=== PATIENT | male | born 1960 | race Caucasian/White ===

== ENCOUNTER 2019-11-18 09:09 | Inpatient (IN) ==
[2019-11-18 09:37] LABS: Basophils # (auto) 0.05 K/uL (0-0.2); Basophils % (auto) 0.5 %; Eosinophils # (auto) 0.18 K/uL (0-0.5); Eosinophils % (auto) 1.9 %; Hematocrit (blood only) 44.6 % (42-52); Hemoglobin 14.8 g/dL (14.0-18.0); Immature Granulocytes # (auto) 0.05 K/uL (0.00-0.02); Immature Granulocytes % (auto) 0.5 %; Lymphocytes # (auto) 2.53 K/uL (1.2-3.4); Lymphocytes % (auto) 26.3 %; Mean Corpuscular Hemoglobin 31.4 pg (25-34); Mean Corpuscular Hgb Conc 33.2 g/dL (32-36); Mean Corpuscular Volume 94.5 fL (80-100); Mean Platelet Volume 10.1 fL (7.4-10.4); Monocytes # (auto) 0.72 K/uL (0.11-0.59); Monocytes % (auto) 7.5 %; Neutrophils # (auto) 6.08 K/uL (1.4-6.5); Neutrophils % (auto) 63.3 %; Platelet Count 270 K/uL (130-400); RDW Standard Deviation 48.2 fL (36.4-46.3); Red Blood Count 4.72 M/uL (4.7-6.1); White Blood Count 9.61 K/uL (4.8-10.8)
[2019-11-18 09:43] LABS: Albumin Level 4.1 gm/dl (3.4-5.0); BUN Creatinine Ratio 15.6 (10-20); Blood Urea Nitrogen 14 mg/dl (7-18); Calcium 9.3 mg/dl (8.5-10.1); Carbon Dioxide 26 mmol/L (21-32); Chloride 106 mmol/L (98-107); Creatinine Clr Calc Pharmacy 93.6 ml/min; Est GFR (Non-African American) 94.9; Glucose 106 mg/dl (70-99); Magnesium 2.2 mg/dl (1.8-2.4); Sodium 136 mmol/L (136-145)
[2019-11-18] MEDS: SODIUM CHLORIDE 0.9% 1000ML 1,000 ML IV SCH ×2 (09:43→14:13)
[2019-11-18 09:48] LABS: Alanine Aminotransferase 19 U/L (12-78); Alkaline Phosphatase 90 U/L (45-117); Aspartate Aminotransferase 13 U/L (15-37); Bilirubin,Total 0.3 mg/dl (0.2-1); Globulin 4.3 gm/dl (2.5-4.0); Total Protein 8.4 gm/dl (6.4-8.2); Troponin I < 0.015 ng/ml (0-0.045)
[2019-11-18 09:51] LABS: Partial Thromboplastin Time 27.3 Seconds (21.0-31.0)
--- NOTE | 2019-11-18 10:01 | Emergency Department Note ---
Impression & Plan Cerebrovascular accident ED Provider Note NAME: SUHA JAVED AGE: 59 SEX: M ARRIVES VIA: Ambulance INFORMANT: [Patient] ED PROVIDER(S): Aiden Etienne MD CHIEF COMPLAINT: Left-sided weakness and numbness PLAN: Disposition: Admitted Condition: [Good] MEDICAL DECISION MAKING: Patient presented approximately 10 hours after the onset of dizziness and left- sided weakness/numbness. His physical examination was concerning for a central process. He underwent emergent laboratory testing, ECG, and CT imaging. Unfortunately due to the time of symptoms he was not a TPA candidate. CT imaging did reveal an acute CVA as noted below. Laboratory testing was unremarkable. The patient was given aspirin, Plavix and Lipitor after discussion with Poly mendez. He will need to be admitted for further work-up. I did discuss the case with the patient and his . I gave my usual and customary discussion regarding this issue. Triage Nursing notes reviewed and agree them. Vital Signs: reviewed and remarkable for hypertension Differential diagnosis: CVA/TIA, infection, dehydration, metabolic abnormality, hypo/hyperglycemia, electrolyte disturbance, anemia, hypoxia, cardiac sources, intracerebral event, toxicologic, neurologic, as well as other pathologies. ER treatment provided: Saline hydration Diagnostics interpreted by me: ECG: Rate: 67 Rhythm:Normal sinus [place]:Normal QRS:Normal ST segements:No elevation or depression Other:No PACs or PVCs Cardiac Monitoring: Cardiac monitoring ordered by me: The patient was placed on continuous cardiac monitoring and observed. It revealed a normal sinus rhythm at 71 beats per minute without ectopy or evidence of dysrhythmia. Laboratory studies: [See below] an unremarkable CBC and chemistry panel. 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 The patient also has a 2.9 x 1.4 cm acute CVA noted in the left cerebellar hemisphere Consultation(s): Consultation was made with Poly mendez, Dr. Rosenbaum. He recommended initiation of dual antiplatelet therapy with aspirin and Plavix load. He agreed with the IV fluids. He also recommended a statin such as Lipitor 40 mg and this was ordered. He recommended further thromboembolic work-up given the CTA find ings and that he would be available for additional consultation if the clinical scenario changes. Consultation was made with Dr. Duffy of the [facility] service. The patient was evaluated in the ER for further management. HPI: The patient is a 59 year old male who presents to the Emergency Room with complaints of left-sided numbness and weakness. This started last night around 11 PM and is slightly improved. The patient also notes the following associated symptoms, nausea and vomiting at the onset. The patient also noted dizziness. The dizziness has improved. Nausea and vomiting have resolved. The patient has taken no medication for relieving factors. Current pain is rated as 0/10. Pt denies LOC, headache, fevers, chills, diaphoresis, visual changes, neck pain, chest pain, breathing difficulties, nausea, vomiting, abdominal pain, back pain, melena, hematochezia, urinary symptoms, lymphadenopathy, rash, or other complaints. ROS: See above HPI for pertinent positives & negatives. A total of [10] systems reviewed and were otherwise negative. PAST MEDICAL HISTORY:Patient denies PAST SURGICAL HISTORY:Patient denies FAMILY HISTORY:Stroke and CAD SOCIAL HISTORY:Smoker HOME MEDICATIONS:Patient denies ALLERGIES:No known drug allergies] VITALS:[See Below] PHYSICAL EXAMINATION: GENERAL: Awake, alert, well appearing, no distress HENT: Normocephalic, atraumatic. TM's normal. Oropharynx unremarkable. EYES: PERRL. EOMI. Normal conjunctiva. Sclera non-icteric. NECK: Supple. Normal inspection. Non-tender. No nuchal rigidity. FROM. No bruit. RESPIRATORY: Breath sounds equal. No wheezes. No rhonchi. Normal respiratory effort. CARDIAC: Normal rate. Regular rhythm. No murmurs. No rubs. No JVD. GI: Soft, non distended. No tenderness to palpation. No rebound or guarding. No masses. RECTAL: Deferred. MUSCULOSKELETAL: Unremarkable. No edema. No discoloration. Gross motor strength symmetric. NEURO: Cranial nerves 2-12 grossly intact. Normal sensorium. No right-sided sensory or motor deficits noted. Left arm subjective numbness and left leg subjective numbness. Speech normal. Left sided pronator drift. Left leg drift as well. Patient unable to perform left heel to right cancino testing. Normal rapid alternating movements. No pathologic nystagmus noted. SKIN: No rash or jaundice noted. LYMPH: No adenopathy. ED COURSE: Procedures: [none] [Critical Care:] [None] Aiden Etienne MD Past Med/Surg History Social History Feels Safe at Home: Yes Smoking Status: Current every day smoker Allergies Allergies Allergy/AdvReac Type Severity Reaction Status Date / Time No Known Allergies Allergy Unverified 11/18/19 10:40 Home Meds Home Medications Medication Instructions Recorded Confirmed No Known Home Medications 11/18/19 11/18/19 Results & Data (ED) Vital Signs Vital Signs - 24 hr 11/18/19 08:56 11/18/19 09:25 11/18/19 09:30 Temperature 36.6 C Temperature Source Oral Pulse Rate 77 74 Pulse Rate from SpO2 Sensor 72 Pulse Rhythm Regular Pulse Strength Normal Respiratory Rate 18 16 Respiratory Effort / Characteristics Non-Labored Respiratory Depth Normal Respiratory Pattern Regular Blood Pressure 178/93 H 163/93 H Blood Pressure Mean 121 131 Blood Pressure Position Sitting Pulse Oximetry 96 96 97 Oxygen Delivery Method Room Air Room Air Sepsis Recent Fever Within 48 Hours No Sepsis Action Taken by Nursing No Action Required 11/18/19 09:33 11/18/19 10:00 11/18/19 10:30 Temperature Temperature Source Pulse Rate 83 64 71 Pulse Rate from SpO2 Sensor 73 73 Pulse Rhythm Pulse Strength Respiratory Rate 16 Respiratory Effort / Characteristics Respiratory Depth Respiratory Pattern Blood Pressure 160/88 H Blood Pressure Mean 110 Blood Pressure Position Pulse Oximetry 97 96 Oxygen Delivery Method Sepsis Recent Fever Within 48 Hours Sepsis Action Taken by Nursing 11/18/19 11:00 11/18/19 11:20 11/18/19 11:30 Temperature Temperature Source Pulse Rate 68 76 62 Pulse Rate from SpO2 Sensor Pulse Rhythm Pulse Strength Respiratory Rate Respiratory Effort / Characteristics Respiratory Depth Respiratory Pattern Blood Pressure 157/83 H 182/84 H Blood Pressure Mean 112 113 Blood Pressure Position Pulse Oximetry Oxygen Delivery Method Sepsis Recent Fever Within 48 Hours Sepsis Action Taken by Nursing 11/18/19 11:31 11/18/19 12:00 11/18/19 12:30 Temperature Temperature Source Pulse Rate 82 64 79 Pulse Rate from SpO2 Sensor Pulse Rhythm Pulse Strength Respiratory Rate Respiratory Effort / Characteristics Respiratory Depth Respiratory Pattern Blood Pressure 165/82 H Blood Pressure Mean 120 Blood Pressure Position Pulse Oximetry Oxygen Delivery Method Sepsis Recent Fever Within 48 Hours Sepsis Action Taken by Nursing 11/18/19 12:31 Temperature Temperature Source Pulse Rate 76 Pulse Rate from SpO2 Sensor Pulse Rhythm Pulse Strength Respiratory Rate 16 Respiratory Effort / Characteristics Respiratory Depth Respiratory Pattern Blood Pressure 187/90 H Blood Pressure Mean 119 Blood Pressure Position Pulse Oximetry Oxygen Delivery Method Sepsis Recent Fever Within 48 Hours Sepsis Action Taken by Nursing Laboratory Data Result diagrams: 11/18/19 09:15 11/18/19 09:15 Lab Results 11/18/19 11/18/19 11/18/19 Range/Units 09:15 09:15 09:15 WBC 9.61 (4.8-10.8) K/uL RBC 4.72 (4.7-6.1) M/uL Hgb 14.8 (14.0-18.0) g/dL Hct 44.6 (42-52) % MCV 94.5 (80-100) fL MCH 31.4 (25-34) pg MCHC 33.2 (32-36) g/dL RDW Std Deviation 48.2 H (36.4-46.3) fL RDW Coeff of Cipriano 14.0 (11.5-14.5) % Plt Count 270 (130-400) K/uL MPV 10.1 (7.4-10.4) fL Immature Gran % (Auto) 0.5 % Neut % (Auto) 63.3 % Lymph % (Auto) 26.3 % Pershing % (Auto) 7.5 % Eos % (Auto) 1.9 % Baso % (Auto) 0.5 % Immature Gran # (Auto) 0.05 H (0.00-0.02) K/uL Neut # (Auto) 6.08 (1.4-6.5) K/uL Lymph # (Auto) 2.53 (1.2-3.4) K/uL Pershing # (Auto) 0.72 H (0.11-0.59) K/uL Eos # (Auto) 0.18 (0-0.5) K/uL Baso # (Auto) 0.05 (0-0.2) K/uL PT 11.0 (9.0-12.0) Seconds INR 1.0 (0.9-1.1) APTT 27.3 (21.0-31.0) Seconds PTT Ratio 1.0 Sodium 136 (136-145) mmol/L Potassium 4.0 (3.5-5.1) mmol/L Chloride 106 (98-107) mmol/L Carbon Dioxide 26 (21-32) mmol/L Anion Gap 4.0 (3-11) BUN 14 (7-18) mg/dl Creatinine 0.89 (0.6-1.4) mg/dl Est Cr Clr Drug Dosing 93.6 ml/min Est GFR ( Amer) 110.0 Est GFR (Non-Af Amer) 94.9 BUN/Creatinine Ratio 15.6 (10-20) Glucose 106 H (70-99) mg/dl Calcium 9.3 (8.5-10.1) mg/dl Magnesium 2.2 (1.8-2.4) mg/dl Total Bilirubin 0.3 (0.2-1) mg/dl AST 13 L (15-37) U/L ALT 19 (12-78) U/L Alkaline Phosphatase 90 (45-117) U/L Troponin I < 0.015 (0-0.045) ng/ml Total Protein 8.4 H (6.4-8.2) gm/dl Albumin 4.1 (3.4-5.0) gm/dl Globulin 4.3 H (2.5-4.0) gm/dl Albumin/Globulin Ratio 1.0 (0.9-2) Blood Type Antibody Screen 11/18/19 Range/Units 09:41 WBC (4.8-10.8) K/uL RBC (4.7-6.1) M/uL Hgb (14.0-18.0) g/dL Hct (42-52) % MCV (80-100) fL MCH (25-34) pg MCHC (32-36) g/dL RDW Std Deviation (36.4-46.3) fL RDW Coeff of Cipriano (11.5-14.5) % Plt Count (130-400) K/uL MPV (7.4-10.4) fL Immature Gran % (Auto) % Neut % (Auto) % Lymph % (Auto) % Pershing % (Auto) % Eos % (Auto) % Baso % (Auto) % Immature Gran # (Auto) (0.00-0.02) K/uL Neut # (Auto) (1.4-6.5) K/uL Lymph # (Auto) (1.2-3.4) K/uL Pershing # (Auto) (0.11-0.59) K/uL Eos # (Auto) (0-0.5) K/uL Baso # (Auto) (0-0.2) K/uL PT (9.0-12.0) Seconds INR (0.9-1.1) APTT (21.0-31.0) Seconds PTT Ratio Sodium (136-145) mmol/L Potassium (3.5-5.1) mmol/L Chloride (98-107) mmol/L Carbon Dioxide (21-32) mmol/L Anion Gap (3-11) BUN (7-18) mg/dl Creatinine (0.6-1.4) mg/dl Est Cr Clr Drug Dosing ml/min Est GFR ( Amer) Est GFR (Non-Af Amer) BUN/Creatinine Ratio (10-20) Glucose (70-99) mg/dl Calcium (8.5-10.1) mg/dl Magnesium (1.8-2.4) mg/dl Total Bilirubin (0.2-1) mg/dl AST (15-37) U/L ALT (12-78) U/L Alkaline Phosphatase (45-117) U/L Troponin I (0-0.045) ng/ml Total Protein (6.4-8.2) gm/dl Albumin (3.4-5.0) gm/dl Globulin (2.5-4.0) gm/dl Albumin/Globulin Ratio (0.9-2) Blood Type A Positive Antibody Screen NEGATIVE Administered Medications Sodium Chloride (Nss 1000ml) 1,000 mls @ 50 mls/hr IV .Q20H [facility] Stop: 12/18/19 09:29 Last Admin: 11/18/19 09:43 Dose: 50 mls/hr Documented by: [id number] Ioversol (Optiray 320 125ml) 119 ml IV ONCE PRN PRN Reason: Interaction Checking Stop: 11/22/19 10:09 Last Admin: 11/18/19 10:11 Dose: 119 ml Documented by: [id number] Discontinued Medications Aspirin (Aspirin) 324 mg PO NOW STA Stop: 11/18/19 11:12 Last Admin: 11/18/19 11:19 Dose: 324 mg Documented by: [id number] Atorvastatin Calcium (Lipitor) 40 mg PO NOW STA Stop: 11/18/19 11:12 Last Admin: 11/18/19 11:43 Dose: 40 mg Documented by: [id number] Clopidogrel Bisulfate (Plavix) 300 mg PO NOW STA Stop: 11/18/19 11:12 Last Admin: 11/18/19 11:19 Dose: 300 mg Documented by: [id number] Discharge Plan Visit Data Chief Complaint: Stroke/CVA Symptoms ED Provider: Aiden Etienne Discharge Problem: Cerebrovascular accident Forms Stand Alone Forms: [employer] [facility] [employer] Prescriptions Prescriptions: No Action No Known Home Medications RF: 0
--- NOTE | 2019-11-18 10:05 | XRay Report ---
XR chest 1V portable CLINICAL HISTORY: Left-sided weakness. COMPARISON STUDY: No previous studies for comparison. FINDINGS: Lung volumes are normal. Equivocal hazy right lower lung opacity is present. There is no pn eumothorax or pleural effusion. Cardiac size is normal. Mediastinal contours are normal. There is no evidence for pulmonary edema. IMPRESSION: Equivocal hazy right lower lung opacity. Artifact is favored however a small focus of pn eumonia could appear similar. ACT 112: Negative or not required by law. Electronically signed by: Ellis Laura M.D. 11/18/2019 10:03 AM
[2019-11-18] MEDS ORDERED: OPTIRAY 320 125ml IV PRN (10:10)
--- NOTE | 2019-11-18 10:18 | Electrocardiogram Report ---
Test Reason : Blood Pressure : / mmHG Vent. Rate : 067 BPM Atrial Rate : 067 BPM P-R Int : 134 ms QRS Dur : 084 ms QT Int : 400 ms P-R-T Axes : 029 063 040 degrees QTc Int : 422 ms Normal sinus rhythm Normal ECG No previous ECGs available Confirmed by Bruce Rios ([id number]) on 11/18/2019 10:18:02 AM Referred By: REFERRED SELF Confirmed By:Bruce Rios
--- NOTE | 2019-11-18 10:38 | CT Scan Report ---
CT OF THE HEAD WITHOUT CONTRAST CLINICAL HISTORY: Stroke evaluation,left weakness COMPARISON STUDY: No previous studies for comparison. CT DOSE: 1153.98 mGy.cm TECHNIQUE: Helical axial images of the head were obtained without IV contrast. Automated exposure con trol was utilized for the study. A dose lowering technique was utilized adhering to the principles o f ALARA. FINDINGS: Note is made of a 2.9 x 1.4 cm hypodensity within the anterior superior aspect of the left cerebellar hemisphere. There is no hemorrhage. No significant mass effect is present. Ventricular sys tem is normal. The basilar cisterns are patent. There are no extra-axial collections. There are no si gnificant calvarial abnormalities. IMPRESSION: 2.9 x 1.4 cm hypodensity within the superior left cerebellar hemisphere consistent with an acute to subacute left superior cerebellar artery infarct. No hemorrhage. No significant mass effe ct. ACT 112: Negative or not required by law. Electronically signed by: Ellis Laura M.D. 11/18/2019 10:37 AM
--- NOTE | 2019-11-18 10:53 | CT Scan Report ---
CT ANGIOGRAPHY OF THE NECK WITH CONTRAST CLINICAL HISTORY: Stroke evaluation COMPARISON STUDY: No previous studies for comparison. Technique: CT angiography of the carotid and vertebral arteries was obtained using [employer] 320 IV and 3D reconstruction on an independent workstation. NASCET criteria was utilized. Automated exposure c ontrol was utilized for the study. A dose lowering technique was utilized adhering to the principles of ALARA. Findings: Lung apices are clear. There is no cervical lymphadenopathy. No cervical spine fracture is noted. No suspicious lesions are identified within visualized skeletal structures. There is moderate atherosclerotic plaque within the proximal right internal carotid artery without significant stenosis . There is plaque within the proximal left internal carotid artery without stenosis. There is no diss ection within the major vessels of the neck. The left vertebral artery is dominant and patent. There is occlusion of the proximal to mid right vertebral artery with reconstitution at the level of the mi d cervical spine. The right vertebral artery is diminutive. IMPRESSION: 1. 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 Diminutive rig ht vertebral artery. Dominant, patent left vertebral artery. 2. Moderate atherosclerotic plaque within the proximal bilateral internal carotid arteries without si gnificant stenosis. ACT 112: Negative or not required by law. Electronically signed by: Ellis Laura M.D. 11/18/2019 10:52 AM
--- NOTE | 2019-11-18 10:57 | CT Scan Report ---
CTA ANGIOGRAPHY OF THE HEAD CLINICAL HISTORY: Stroke evaluation COMPARISON STUDY: No previous studies for comparison. TECHNIQUE: Helical axial images of the head were obtained following uneventful intravenous administr ation of 119 cc of Optiray 320. Sagittal and coronal reconstructions were viewed as well as maximal i ntensity projections on an independent 3-D workstation. Automated exposure control was utilized for the study. A dose lowering technique was utilized adhering to the principles of ALARA. FINDINGS: The bilateral M1, M2, A1 and A2 segments are patent. There is mild plaque within the left s upraclinoid ICA without stenosis. There are large bilateral posterior communicating arteries. No intr acranial aneurysm is identified. Note is made of abrupt cut off of the proximal left superior cerebel lar artery. This accounts for the infarct shown on head CT. Otherwise, the posterior circulation is i ntact. The right vertebral artery is diminutive within its intracranial portion. The left vertebral a rtery is dominant. A 2.9 cm hypodensity within the superior left cerebellar hemisphere is noted. Ther e is no hemorrhage. IMPRESSION: Abrupt cut off of the proximal left superior cerebellar artery which accounts for the 2. 9 cm acute to subacute infarct within the superior left cerebellar hemisphere. ACT 112: Negative or not required by law. Electronically signed by: Ellis Laura M.D. 11/18/2019 10:56 AM
[2019-11-18] MEDS ORDERED: CLOPIDOGREL BISULFATE 300 MG TAB PO STA (11:11)
[2019-11-18] MEDS ORDERED: ASPIRIN CHEW 324 MG PO STA (11:11)
[2019-11-18] MEDS ORDERED: ATORVASTATIN 40 MG TAB PO STA (11:11)
--- NOTE | 2019-11-18 13:05 | History & Physical Report ---
Date of Service November 18, 2019 Assessment & Plan (1) Cerebrovascular accident: CT head, CTA head/neck reviewed Telestroke recs for dual antiplatelet tx x30 days Reconsult if recurrence and concern for emergent neurosurg workup CBC, PRP, trop WNL Neuro c/s pending Vasc surg c/s pending Lipids, A1c pending Per CM, pt was admitted in 2016 for some sort of TIA vs seizure work up. He was to f/u with [facility] neuro as outpt but did not do so. (2) Tobacco use disorder: 1ppd, would like to quit Start on nicotine patch and monitor (3) DVT prophylaxis: SCDs History of Present Illness Primary Care Provider: Aiden Santiago MD 59 y/o M c/o dizziness, vomiting, L UE/LE numbness. Pt states that he had a usual day for himself yesterday. 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 He states he woke up around 11p and had sudden onset of room spinning and vomiting. He noted that his L UE/LE were both numb. He couldn't walk due to the numbness. He states he was up all night feeling unwell. His last emesis was around 4a. He states that the dizziness and numbness persisted, so he came to the ED. He has never had similar sx. Denies any confusion or changes in vision, speech. Pt denies fever, SOB, chest pain, abd pain, c/d, LE pain or swelling. Per ED physician, pt was evaluated by [facility] telestroke. It was determined that pt would need a vascular work-up and should be started on dual antiplatelet therapy. It pt were to have repeat events, he may need transferred to [facility] for neurosurg c/s. Allergies Allergy/AdvReac Type Severity Reaction Status Date / Time No Known Allergies Allergy Unverified 11/18/19 10:40 Home Medications Home Medications Medication Instructions Recorded Confirmed Type No Known Home Medications 11/18/19 11/18/19 History Past Med/Surg History Family History (Updated 11/18/19 @ 12:59 by Emilee Duffy DO) Mother Myocardial infarction Father Myocardial infarction Denies family history of Stroke Social History (Updated 11/18/19 @ 12:59 by Emilee Duffy DO) Feels Safe at Home: Yes Smoking Status: Current every day smoker packs per day: 1 ; Hx Alcohol Use: Yes (beer on the weekends) Hx Substance Use: Yes (smokes MJ most days, but not every day) substance use type: marijuana Last Used Substance Other:: MJ yesterday Review of Systems Review of Systems: Pertinent positives and negatives reviewed in HPI--all others negative Physical Exam Constitutional: WD/WN, vitals as above Eyes: normal visual caputo by confrontation and + anicteric sclerae Neck: normal visual inspection and trachea midline Respiratory: normal respiratory effort, lungs clear to auscultation Cardiovascular: Rate/Rhythm: regular rate and regular rhythm Gastrointestinal (Abdomen): Inspection/Auscultation: abdomen not distended Percussion/Palpation: abdomen soft; abdomen nontender Musculoskeletal: Head/Neck/Chest: normocephalic and head atraumatic negative for edema, peripheral pulses intact Skin: no rashes, warm and dry Neurologic: CN's II-XI intact bilaterally and awake; not confused Speech / Cognition: normal speech 4/5 ophthalmology technician strength on the L, 5/5 on R L LE with 4/5 strength against resistance to hip flexion, 5/5 on R b/l 5/5 strength against resistance to dorsi/plantar flexion/extension Psychiatric: A+Ox3, euthymic affect Results & Data Results & Data ([facility]) Vital Signs (Past 12 Hours) Vital Signs Temp Pulse Resp BP Pulse Ox 11/18/19 12:31 76 16 187/90 H 11/18/19 12:30 79 11/18/19 12:00 64 165/82 H 11/18/19 11:31 82 11/18/19 11:30 62 182/84 H 11/18/19 11:20 76 157/83 H 11/18/19 11:00 68 11/18/19 10:30 71 96 11/18/19 10:00 64 16 160/88 H 11/18/19 09:33 83 97 11/18/19 09:30 74 16 163/93 H 97 11/18/19 09:25 96 11/18/19 08:56 36.6 C 77 18 178/93 H 96 Diagnostic Findings CXR: likely atelectasis CT head: L cerebellar lesion, acute vs subacute L superior cerebellar artery infarct CTA head: L superior cerebellar artery occlusion CTA neck: R vertebral artery occlusion ECG Rhythm: normal sinus Code Status & VTE Plan Code Status Full code VTE Prophylaxis Plan VTE Prophylaxis will be ordered: Yes PG Care Time/CCT Total # of Minutes Spent Total Time Spent with Patient: Total time spent is greater than 50% in co ordination of care (as documented) at patient's floor/unit and/or counseling patient: Coding Level of Care Code 54977 Initial Inpt Care Lvl 3 Diagnoses Cerebrovascular accident I63.9 Tobacco use disorder F17.200 DVT prophylaxis Z29.9
[2019-11-18] MEDS ORDERED: ACETAMINOPHEN 325 MG TAB PO PRN (13:43)
[2019-11-18] MEDS ORDERED: PHARMACIST DISCHARGE MED REC CONSULT PRN (13:43)
[2019-11-18] MEDS ORDERED: ONDANSETRON INJ 2 MG/ML 2 ML VIAL IV PRN (13:43)
[2019-11-18] MEDS ORDERED: MAGNESIUM HYDROXIDE SUSP 30 ML UDC PO PRN (13:43)
--- NOTE | 2019-11-18 14:08 | Neurology Consultation ---
Date of Consultation November 18, 2019 Assessment & Plan (1) Cerebellar stroke: Liam Thayer is a 59 yo man w/ PMH of tobacco abuse who p/t [facility] with acute onset of left sided numbness, dizziness and nausea/vomiting. Symptom localization: L SCA Stroke mechanism: large vessel occlusion, cannot rule out vessel to vessel from right vertebral artery occlusion Stroke WorkUp: - CT head: hypodensity in the left cerebellum, no hemorrhage - CTA head/neck: left SCA occlusion, dominant left vertebral artery with small caliber right vertebral artery and R V3 occlusion with re-constitution, moderate intra- and extracranial atherosclerosis noted, no other high grade stenosis or aneurysm noted - MRI brain: pending - TTE: pending, will consider ÁNGEL - Telemetry: pending - A1c: pending - FLP: pending - Troponin, TSH: negative, pending Stroke Management: - Acute treatment: ASA/plavix load - Continuous cardiac monitoring, will consider 30 day event monitor as outpatient if telemetry here unrevealing - Vitals, Neurochecks, NIHSS per unit routine - BP parameters: SBP CAP 220, hold home anti-hypertensives for permissive HTN, IV Labetalol/Hydralazine PRN - Obtain MRI brain to evaluate stroke burden - Complete ischemic stroke workup with TTE without bubble, A1c, fasting lipid panel, TSH - Consult speech, PT, OT for supportive management - Will chief counsel concerning stroke education, smoking cessation, healthy diet, physical activity, weight loss - Follow up with PCP for assistance with outpatient goals (BP <135/85, LDL <70, A1c <7) - Follow up in neurology clinic in 6-8 weeks - if worsening mental status/becomes obtunded, stat CTH without contrast to r/o hemorrhagic conversion or acute hydrocephalus Secondary Stroke Prevention: - Antiplatelet: ASA 81mg po daily/plavix 75mg po daily (aspirin 300 VA if no PO access) - Anticoagulation: Not indicated at this time - Statin: Atorvastatin 80mg daily pending LDL HTN: - BP parameters, as above - Hold home BP meds for now in favor of permissive HTN - EKG NSR, troponin negative FEN/GI: - Diet: NPO until cleared by Speech evaluation - Monitor lytes and replete PRN Glucose Control: - Sliding scale insulin and accuchecks per primary team to avoid hyperglycemia Thank you for this interesting consult. Plan of care was discussed with primary team. Please call with any questions. (2) Tobacco use disorder: History of Present Illness Attending Physician: Emilee Duffy DO History of Present Illness Liam Thayer is a 59 yo man w/ PMH of tobacco abuse who p/t [facility] with acute onset of left sided numbness, dizziness and nausea/vomiting. 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 In the ED, BP 178/93, HR 77, RR 18, satting 96% on room air. Labs notable for for WBC 9.6, Hb 14.8, Plts 270, Cr 0.89, glucose 106, INR 1.0, CMP unremarkable, troponin negative. Independent review of CTH shows a hypodensity in the left cerebellum, no hemorrhage. CTA head and neck shows left SCA occlusion, dominant left vertebral artery with small caliber right vertebral artery and R V3 occlusion with re-constitution, moderate intra- and extracranial atherosclerosis noted, no other high grade stenosis or aneurysm noted. CXR show RLL opacity (artifact vs RLL PNA). He was given aspirin/plavix load and admitted for stroke workup. On examination, reports that his numbness has improved some, still feeling dizzy/"sick". Denies any recent illness, trauma or change in medications. Does not take a baby aspirin or any other medication at home. SH: 1ppd x 40 years, 12 pack beer per week, daily marijuana, denies other illicits. Patient Features: Admission NIHSS: 2 Admission Modified Angelina Scale: 0 Time patient last seen well: 8-9pm on 11/17/19 Wake up stroke: Yes Intubation status: Not intubated Stroke Risk Factors: Hypertension: N Hyperlipidemia: N Atrial Fib: N Tobacco: Y Diabetes: N Taking NOAC or warfarin: N Allergies Allergy/AdvReac Type Severity Reaction Status Date / Time No Known Allergies Allergy Unverified 11/18/19 10:40 Home Medications Home Medications Medication Instructions Recorded Confirmed Type No Known Home Medications 11/18/19 11/18/19 History Patient History Family History Mother Myocardial infarction Father Myocardial infarction Denies family history of Stroke Social History Preferred Language: Albanian Communication Ability: Effective 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 Beliefs That Will Affect Care: None Current Living Situation: Spouse Other Information That Helps Us Care for You: No Feels Safe at Home: Yes Safety Concerns: Feels Safe At This Time Smoking Status: Heavy tobacco smoker Tobacco Type: cigarettes ; packs per day: 1 ; Do You Dip or Chew Tobacco: No ; Second Hand Exposure: Yes ; Tobacco Cessation Education Requested by Patient: No Hx Alcohol Use: Yes Alcohol type: beer Hx Substance Use: Yes substance use type: marijuana Substance Use Type Other:: MJ Last Used Substance: Days (ago) Last Used Substance Other:: MJ yesterday Review of Systems Review of Systems: 14 point review of systems completed and negative except as in HPI. Physical Exam Physical Exam: General Exam: GEN: NAD, sitting down in examination bed. HEENT: No conjunctival injection, no rhinorrhea, moist mucus membranes. CV: RRR on monitor, no significant edema. PULM: Nonlabored respirations on room air. Neuro Exam: MS: Awake and Alert. Oriented to person, place, and date. Speech fluent and appropriate without paraphasic errors. Mild dysarthria. Language intact including naming, comprehension, repetition. Cognition and memory grossly intact. Attention intact. No neglect. CN: Visual dumas full. No extinction to double simultaneous stimuli. Unable to visualize fundi on fundoscopic exam. PERRLA OU. EOMI without clear nystagmus. Facial sensation intact to LT. Facial muscles full and symmetric. Hearing intact to finger rub bilaterally. Uvula midline with symmetric palatal elevation. Shoulder shrug normal. Tongue midline. MOTOR: Normal bulk and tone. No pronator drift. All extremities antigravity without drift. REFLEXES: 1+ at biceps, brachioradialis, 1+ patella, and absent Achilles bilaterally. Flexor plantar responses bilaterally. SENSORY: Intact to LT/vibration/temperature throughout, no extinction to double simultaneous stimuli. COORDINATION: + dysmetria on [id number] in the LUE. Normal [place] bilaterally. GAIT: Deferred due to physical status. NIH STROKE SCALE 1A. Level of Consciousness (0-3) = 0 1B. LOC Questions (0-2) = 0 1C. LOC Commands (0-2) = 0 2. Best Horizontal Gaze (0-2) = 0 3. Visual Dumas (0-3) = 0 4. Facial Palsy (0-3) = 0 5. Motor Arm Right (0-4) = 0 Left (0-4) = 0 6. Motor Leg Right (0-4) = 0 Left (0-4) = 0 7. Limb Ataxia (0-2) = 1 8. Sensory (0-2) = 0 9. Best Language (0-3) = 0 10. Dysarthria (0-2) = 1 11. Extinction and Inattention (0-2) = 0 NIHSS TOTAL = 2 Results & Data Vital Signs (Past 12 Hours) Vital Signs Temp Pulse Resp BP Pulse Ox 11/18/19 13:00 84 20 148/76 H 96 11/18/19 12:32 83 11/18/19 12:31 76 16 187/90 H 11/18/19 12:30 79 11/18/19 12:00 64 165/82 H 11/18/19 11:31 82 11/18/19 11:30 62 182/84 H 11/18/19 11:20 76 157/83 H 11/18/19 11:00 68 11/18/19 10:30 71 96 11/18/19 10:00 64 16 160/88 H 11/18/19 09:33 83 97 11/18/19 09:30 74 16 163/93 H 97 11/18/19 09:25 96 11/18/19 08:56 36.6 C 77 18 178/93 H 96 PG Care Time/CCT Total # of Minutes Spent Total Time Spent with Patient: Total time spent is greater than 50% in coordination of care (as documented) at patient's floor/unit and/or counseling patient: Coding Level of Care Code 66349 Inpt Consult Level 5 Diagnoses Cerebellar stroke I63.9 Tobacco use disorder F17.200
[2019-11-18] MEDS: NICOTINE 21 MG/24 HR TDSY TD SCH (14:10)
[2019-11-18 20:30] LABS: Appearance Urine Clear (Clear); Bilirubin Urine Negative (Negative); Blood Urine Negative (Negative); Color Urine Yellow; Glucose Urine UA Negative (Negative); Ketones Urine Negative (Negative); Leukocyte Esterase Urine Negative (Negative); Nitrite Urine Negative (Negative); Protein Urine Negative (Negative); Specific Gravity Urine 1.025 (1.000-1.030); Urobilinogen Urine Negative (Negative)
[2019-11-18] MEDS ORDERED: GADOBUTROL 30ML VIAL IV PRN (23:43)
[2019-11-19 06:05] LABS: Basophils # (auto) 0.03 K/uL (0-0.2); Basophils % (auto) 0.3 %; Eosinophils # (auto) 0.34 K/uL (0-0.5); Eosinophils % (auto) 3.7 %; Hematocrit (blood only) 43.4 % (42-52); Hemoglobin 14.3 g/dL (14.0-18.0); Immature Granulocytes # (auto) 0.04 K/uL (0.00-0.02); Immature Granulocytes % (auto) 0.4 %; Lymphocytes # (auto) 2.77 K/uL (1.2-3.4); Lymphocytes % (auto) 30.5 %; Mean Corpuscular Hemoglobin 31.5 pg (25-34); Mean Corpuscular Hgb Conc 32.9 g/dL (32-36); Mean Corpuscular Volume 95.6 fL (80-100); Mean Platelet Volume 10.1 fL (7.4-10.4); Monocytes # (auto) 0.67 K/uL (0.11-0.59); Monocytes % (auto) 7.4 %; Neutrophils # (auto) 5.23 K/uL (1.4-6.5); Neutrophils % (auto) 57.7 %; Platelet Count 277 K/uL (130-400); RDW Coefficient of Variation 13.9 % (11.5-14.5); RDW Standard Deviation 48.6 fL (36.4-46.3); Red Blood Count 4.54 M/uL (4.7-6.1); White Blood Count 9.08 K/uL (4.8-10.8)
--- NOTE | 2019-11-19 06:33 | Magnetic Resonance Report ---
MRI OF THE BRAIN WITHOUT AND WITH IV CONTRAST CLINICAL HISTORY: stroke symptoms LEFT ARM AND LEG NUMBNESS. Dizziness COMPARISON STUDY: CT scan of the head dated 11/18/2019 TECHNIQUE: MRI of the brain was performed from the vertex to the skull base utilizing various T1 and T2 weighted sequences. Following the IV administration of 8.3 mL of Gadavist contrast, additional enh anced images were obtained. FINDINGS: Sagittal T1, axial diffusion, proton density and T2 weighted axial, coronal FLAIR, and pre and post a xial T1-weighted images were acquired. These were supplemented with post gadolinium coronal T1 weight ed images. No intra or extra-axial mass lesions are visualized. There is a focus of restricted water diffusion involving the left anterior superior cerebellum measur ing approximately 2.5 cm in diameter. This is indicative of an acute to subacute infarct. There is no evidence of ventricular dilatation. Proton density T2-weighted and FLAIR images reveal a few punctate foci of increased T2 signal within the white matter, likely on a small vessel basis. In addition there is increased T2 and FLAIR signal in the distribution of the patient's left cerebellar subacute infarct. There are no abnormal flow voids. There is no evidence of pathologic enhancement. Foci of increased T2 signal within the right mastoid are likely inflammatory IMPRESSION: 1. Acute to subacute infarct involving the left anterior superior cerebellum. ACT 112: Negative or not required by law. Electronically signed by: Davonte Harper M.D. 11/19/2019 6:32 AM
[2019-11-19 06:37] LABS: BUN Creatinine Ratio 12.1 (10-20); Creatinine Clr Calc Pharmacy 94.5 ml/min; Est GFR (Non-African American) 95.8; Potassium 3.8 mmol/L (3.5-5.1)
[2019-11-19 07:17] LABS: Estimated Average Glucose 120 mg/dl; Hemoglobin A1C 5.8 % (4.5-5.6)
[2019-11-19] MEDS: NICOTINE 21 MG/24 HR TDSY TD SCH (08:43)
[2019-11-19] MEDS ORDERED: ASPIRIN 81 MG ECTAB PO SCH (09:00)
[2019-11-19] MEDS ORDERED: CLOPIDOGREL BISULFATE 75 MG TAB PO SCH (09:00)
[2019-11-19] MEDS ORDERED: ATORVASTATIN 40 MG TAB PO SCH (09:00)
--- NOTE | 2019-11-19 09:45 | Consultation ---
Date of Consultation November 19, 2019 Assessment & Plan (1) Cerebrovascular accident: This is a 59-year-old male who had a cerebral infarct. On reviewing his studies he does have a left vertebral occlusion in the midportion. There is reconstitution distally. The artery itself is on the smaller side. He does have mild plaque in his carotid arteries but no significant narrowing requiring any intervention. At this point I would treat him conservatively with aspirin and Plavix. We will see him in the office in 6 months for routine follow-up. Thank you very much for letting us participate in the care of this patient. History of Present Illness Reason for Consultation: Cerebellar infarct Attending Physician: Emilee Duffy, History of Present Illness This is a 59-year-old male who was in his usual state of good health. He was actually chopping wood on the day prior to admission. 11:00 that night he dev eloped nausea vomiting and numbness of his left leg which progressed to numbness of his left arm. He had difficulty walking and realized he had weakness in his left arm left leg. He was admitted hospital at that time. CAT scan shows a left cerebellar infarct. He claims that his left arm and left leg today are back to normal. He denied any previous incidences like this in the past. He does smoke a pack a day. 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 Beliefs That Will Affect Care: None Current Living Situation: Spouse Feels Safe at Home: Yes Smoking Status: Heavy tobacco smoker Tobacco Type: cigarettes ; packs per day: 1 ; Second Hand Exposure: No ; Hx Alcohol Use: Yes Alcohol type: beer Hx Substance Use: Yes substance use type: marijuana Substance Use Type Other:: MJ Last Used Substance: Days (ago) Last Used Substance Other:: MJ yesterday Review of Systems Review of Systems: All systems reviewed & are unremarkable except as noted in HPI & below Physical Exam Constitutional: well developed and well nourished; no acute distress and not ill appearing Respiratory: normal respiratory effort; no respiratory distress Cardiovascular: RRR, no murmur, no edema Rate/Rhythm: regular rate and regular rhythm Vessels: femoral pulses present, posterior tibial pulses present, dorsalis pedis pulses present and radial pulses present Extremities: normal capillary refill Gastrointestinal (Abdomen): normal bowel sounds, soft, nontender, no hepatosplenomegaly Musculoskeletal: Extremities: extremities normal to inspection Neurologic: CN's II-XI intact bilaterally, normal sensation to monofilament, moves all extremities and + focal motor deficit (4/5 strength of left arm left l eg.) Speech / Cognition: normal speech Psychiatric: Orientation: alert and oriented x 3 Results & Data Vital Signs (Past 12 Hours) Vital Signs Temp Pulse Pulse Resp BP Pulse Ox 11/19/19 08:00 90 11/19/19 07:00 36.9 C 77 20 138/80 96 11/19/19 04:20 36.7 C 66 18 141/61 H 97 11/18/19 23:59 36.5 C 70 19 166/77 H 96
[2019-11-19] MEDS: SODIUM CHLORIDE 0.9% 1000ML 1,000 ML IV SCH (10:21)
--- NOTE | 2019-11-19 14:06 | XCELERA ---
[id number] \\[id number]
[2019-11-19] MEDS ORDERED: STROKE PATIENT DISCHARGE STA (15:23)
--- NOTE | 2019-11-19 15:32 | Discharge Summary ---
Date of Service November 19, 2019 Admission HPI Per Admitting Provider 59 y/o M c/o dizziness, vomiting, L UE/LE numbness. Pt states that he had a usual day for himself yesterday. 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 He states he woke up around 11p and had sudden onset of room spinning and vomiting. He noted that his L UE/LE were both numb. He couldn't walk due to the numbness. He states he was up all night feeling unwell. His last emesis was around 4a. He states that the dizziness and numbness persisted, so he came to the ED. He has never had similar sx. Denies any confusion or changes in vision, speech. Pt denies fever, SOB, chest pain, abd pain, c/d, LE pain or swelling. Per ED physician, pt was evaluated by [facility] telestroke. It was determined that pt would need a vascular work-up and should be started on dual antiplatelet therapy. It pt were to have repeat events, he may need transferred to [facility] for neurosurg c/s. Principal Diagnosis Pt continues to feel improved. He has had no recurrence of dizziness or emesis. His L UE/LE numbness has continued to improve. Tolerating PO without issue. Pt denies fever, SOB, chest pain, abd pain, n/v/c/d, LE pain or swelling. He has been ambulating without issue per himself and nursing. He feels that the nicotine patches are helping. He has no smoking cravings since admission and would like to continue use. Discharge Exam Constitutional WD/WN, vitals as above Eyes normal visual caputo by confrontation and + anicteric sclerae Neck normal visual inspection and trachea midline Respiratory normal respiratory effort, lungs clear to auscultation Cardiovascular Rate/Rhythm: regular rate and regular rhythm Gastrointestinal (Abdomen) Inspection/Auscultation: abdomen not distended Percussion/Palpation: abdomen soft; abdomen nontender Musculoskeletal Head/Neck/Chest: normocephalic and head atraumatic Skin no rashes, warm and dry Neurologic CN's II-XI intact bilaterally and awake; not confused Speech / Cognition: normal speech slightly decreased fagot maker strength in the L compared with the R Slight decreased strength against resistance in L hip flexion, dorsi/plantar flexion 5/5 Psychiatric A+Ox3, euthymic affect Discharge Data Allergies Allergy/AdvReac Type Severity Reaction Status Date / Time No Known Allergies Allergy Unknown Verified 11/19/19 08:05 Consultations 11/18/19 12:13 ED Decision to Admit Stat 11/18/19 13:43 Consult Case Management - Discharge Planning Routine Consult Case Management - Discharge Planning Routine Consult Neurology Routine Consult Vascular Surgery Routine Ordered Studies 11/18/19 09:27 CT angio head w con Stat CT angio neck with con Stat CT head/brain wo con Stat 11/18/19 19:42 MRI Brain [MR brain wo/w con] Routine Hospital Course (1) Cerebrovascular accident: CT head noted for L cerebellar lesion, acute vs subacute--same noted on MRI CTA head/neck with L superior cerebellar artery occlusion, R vertebral artery occlusion Telestroke recs for aspirin/plavix tx x30 days Reconsult if recurrence and concern for emergent neurosurg workup CBC, PRP, trop WNL Neuro f/u in 6-8 weeks to determine ongoing aspirin/plavix use Vasc surg felt current management is adequate with f/u in 6 months Lipids with LDL 142, HDL 34--d/c on statin A1c 5.8 ECHO neg for acute issues Per CM, pt was admitted in 2016 for some sort of TIA vs seizure work up. He was to f/u with [employer] [facility] [employer] [facility] [employer] as outpt but did not do so. (2) Tobacco use disorder: 1ppd, would like to quit Start on nicotine patch and monitor Given rx for patches, advised to f/u with PCP for other options if not working, gave info for [place] QUIT LINE. also smokes, advised she also work towards cessation (2) Tobacco use disorder: Total Time Total Time Spent Total Time Spent (In Minutes): >30 Total Time Includes: Examination of the Patient, Discharge Planning, Medication Reconciliation, Communication With Other Providers and Other Discharge Plan Discharge Items Patient Disposition: Home - Self-Care Reason For Visit: CVA Discharge Diagnosis: Stroke Activity: Resume your previous activity Non-emergency contact: Primary Care Provider Call non-emergency contact if: you have any medication questions and your symptoms worsen Follow-up/Referrals: Karina Dee CRNP [Primary Care Provider] - 11/26/19 10:30 am (Please, follow up at [facility] Office with Karina BURRIS on TuesdayNovember 25 at 10:30 am. *Karina BURRIS will be your new primary care provider. A nurse will call you with the appointment information. Due to the need for social distancing, this will be a TELEPHONIC VISIT, call the office at [phone].) Charisma Quick MD [Physician] - 01/09/20 9:45 am (Please, follow up at [facility] Neurology Office with Dr. Charisma Quick on TuesdayJanuary 08 at 10:00 am (arrive 9:45 am). *The office is located at [facility] in [place]. If you need to change this appointment, call the office at [phone].) Josef Gayle MD [Physician] - (Call [phone] to schedule a follow up appointment in 6 months) Diet: Heart Healthy Addtl Attending Provider Instructions: If you have any recurrence of symptoms--dizziness, vomiting, or worsening of your left arm and leg numbness, you should return to the ED as soon as possible. If you feel that you are having issues quitting smoking with just the nicotine patch, you should call your new primary care doctor to discuss use of alternatives. Another great resource is the [place] QUIT LINE. 5-203-SEDK-NOW. They can provide resources like free nicotine patches and 24/ counseling services about smoking cessation. It is free to all [place] residents. Pending Studies at Discharge: No Stand-Alone Forms: My [facility], Smoking Cessation Medications and DC Order Prescriptions: New atorvastatin 40 mg Tablet 40 mg PO QAM Qty: 30 RF: 1 clopidogrel 75 mg Tablet 75 mg PO QAM Qty: 30 RF: 1 aspirin 81 mg Tablet,Delayed Release (Dr/Ec) 81 mg PO QAM Qty: 30 RF: 1 nicotine [Nicoderm CQ] 21 mg/24 hr Patch 24 Hour 21 mg transdermal QAM Qty: 30 RF: 1 No Action No Known Home Medications RF: 0 No Known Home Medications RF: 0 Discharge Orders: Discharge Order (Routine); Ordered 11/19/19 Ordered By: Emilee Del Angel/Other Patient Handouts: Stroke Heart Disease, Smoking Quit Plan, Smoking Get Help for Quitting Admission Data Admit Date/Time: 11/18/19 13:00 Attending Provider: Emilee Duffy Admit Provider: Emilee Duffy Primary Care Provider: Karina Dee Other Providers: Emilee Duffy ; Maximiliano Bean ; Josef Gayle Other Interventions: Discharge Summary Assessment (RN) Last Done: 11/19/19 15:20 DC Date/Time DO NOT enter until pt leaves facility: 11/19/19 16:28 Coding Level of Care Code D/C Day Management >30 mins Diagnoses Cerebrovascular accident I63.9 Tobacco use disorder F17.200
--- NOTE | 2019-11-21 10:59 | Pharmacy Report ---
Pharmacist Post D/C Phone Note - Phone Note: Date of phone call: November 21, 2019. Individual with whom pharmacist spoke to: LIAM HAILE The following questions were reviewed during the phone call with responses listed below each: Can you tell me the medications that you are currently taking as well as when and how you take each medication? -See Table Below When have you missed any doses of your medications? - No What side effects are you having from your medications, specifically, the new medications you were started on? - Feels a little heart burn - recommended taking medications with food What questions do you have about your medications? - none What problems are you having obtaining your medications? - none When is your next appointment with your primary care doctor? - Phone appt of 11/25 Additional comments: - Spoke with Liam Haile via phone this morning. Pt was very pleasant and stated he is doing "much better than Tuesday!" He is taking all of his medications as directed and tolerating them well other than feeling a little heart burn. I recommended that he takes the aspirin with food and cautioned him NOT to take prilosec since this interacts with plavix. Pt will f/u with PCP on 11/25. As per the Pharmacist Discharge Counseling for Stroke Patients Protocol, this phone call has been completed within 72 hours of discharge. Thank you for allowing us to be involved in the care of this patient. - Home Medications: Home Medications Medication Instructions Recorded Confirmed No Known Home Medications 02/08/19 02/08/19 No Known Home Medications 11/18/19 11/18/19 New Rx's Medication Instructions Recorded aspirin 81 mg PO QAM #30 tab 11/19/19 atorvastatin 40 mg PO QAM #30 tab 11/19/19 clopidogrel 75 mg PO QAM #30 tab 11/19/19 nicotine [Nicoderm CQ] 21 mg TRANSDERMAL QAM #30 ea 11/19/19
== END 2019-11-19 16:28 | disposition home or self-care (01) | DRG 66 ==
LOC: ED 09:09 → MERGE 13:00 → 2S 13:00

== ENCOUNTER 2020-03-22 12:06 | Observation (INO) ==
[2020-03-22] MEDS ORDERED: OPTIRAY 320 125ml IV ONE (12:11)
--- NOTE | 2020-03-22 12:19 | CT Scan Report ---
CT head/brain wo con CT DOSE: HISTORY: Stroke evaluation TECHNIQUE: Multiaxial CT images of the head were performed without the use of intravenous contrast. A dose lowering technique was utilized adhering to the principles of ALARA. Comparison: None. Findings: The paranasal sinuses and mastoid air cells are clear. The calvarium and skull base are int act. The ventricles and sulci are within normal limits. There is no mass, hematoma, midline shift, or acute infarct. Impression: No acute intracranial abnormality. ACT 112: Negative or not required by law. The above report was generated using voice recognition software. It may contain grammatical, syntax or spelling errors. Electronically signed by: Jeremiah Holguin M.D. 03/22/2020 12:18 PM
--- NOTE | 2020-03-22 12:25 | CT Scan Report ---
CT angio neck with con HISTORY: Mental status change Stroke evaluation TECHNIQUE: Multiaxial CT angiography of the neck was performed IV contrast: 120 cc All measurements were calculated based on NASCET criteria. Maximum intensity projection images were also obtained. A dose lowering technique was utilized adhering to the principles of ALARA. COMPARISON STUDY: None. FINDINGS: The aortic arch and proximal great vessels are widely patent. There is no significant sten osis, occlusion, or dissection identified within the bilateral common carotid, internal carotid, or v ertebral arteries. Significant plaque formation of the carotid bifurcations bilaterally. 50% narrowin g origin right internal carotid artery. 30% narrowing origin left internal carotid artery. Small ewa braulio right vertebral vessel and congenital basis. IMPRESSION: 1. Considerable plaque formation of the carotid bifurcations bilaterally. 2. 50% narrowing origin right internal carotid artery. 3. 30% narrowing origin left internal carotid artery. 4. Small caliber right vertebral vessel on a congenital basis. 5. No evidence for high-grade stenotic process. ACT 112: Negative or not required by law. The above report was generated using voice recognition software. It may contain grammatical, syntax or spelling errors. Electronically signed by: Jeremiah Holguin M.D. 03/22/2020 12:24 PM
--- NOTE | 2020-03-22 12:27 | CT Scan Report ---
CT angio head w con HISTORY: Mental status change Stroke evaluation TECHNIQUE: Multiaxial CT angiography of the head was performed IV contrast: 120 cc Maximum intensi ty projection images were also obtained. A dose lowering technique was utilized adhering to the prin ciples of SABAS. COMPARISON: None. FINDINGS: There is no mass, hematoma, midline shift, or acute infarct. Visualized intracranial internal audit manager al carotid arteries, distal vertebral arteries, and basilar artery are widely patent. There is no sig nificant stenosis, occlusion, or aneurysm seen within the bilateral ACAs, MCAs, or needlemaker. IMPRESSION: No significant stenosis, occlusion, or aneurysm within the [place] of [place]. ACT 112: Negative or not required by law. The above report was generated using voice recognition software. It may contain grammatical, syntax or spelling errors. Electronically signed by: Jeremiah Holguin M.D. 03/22/2020 12:26 PM
--- NOTE | 2020-03-22 12:30 | Emergency Department Note ---
History of Present Illness General Chief complaint: Stroke Alert Stated complaint: Stroke Alert History of Present Illness Provider complaint: Code stroke Maximum Pain Intensity: 0 59-year-old male presents emergency department via EMS. Code stroke was called from the field. Patient states he was driving when he felt lightheaded. He started having blurred vision and left-sided numbness. He states he then passed out he states he thinks he passed out 3 times. He started feeling nauseous began to vomit. Patient states he had a previous stroke in November 2019 and was treated at this facility. Last well normal was 11:16 AM per EMS. Home Medications Home Medications Medication Instructions Recorded Confirmed Type aspirin 81 mg tablet,delayed 81 mg PO QAM #90 tab 01/18/20 Rx release atorvastatin 40 mg tablet 40 mg PO QAM #90 tab 01/18/20 Rx aspirin [Aspir-81] 81 mg PO QAM 03/22/20 03/22/20 History Allergies Allergy/AdvReac Type Severity Reaction Status Date / Time No Known Allergies Allergy Unknown Verified 03/22/20 12:39 Past Med/Surg History Medical History Cerebellar stroke (Resolved) CVA (cerebral vascular accident) No pertinent family history Surgical History H/O esophagogastroduodenoscopy (Inactive) H/O hernia repair (Inactive) History of esophagogastroduodenoscopy (EGD) Family History Mother Myocardial infarction Father Myocardial infarction Denies family history of Ovarian cancer Prostate cancer Breast cancer Colorectal cancer Stroke Social History Smoking Status: Current every day smoker Tobacco Type: Cigarettes packs per day: 1; Second Hand Exposure: No; Hx Alcohol Use: Yes Alcohol type: beer Hx Substance Use: Yes Last Used Substance: Days (ago) Last Used Substance Other:: MJ yesterday Substance Use Type Other:: MJ Preferred Language: Croatian Communication Ability: Effective Brilliandeer Lopper Required: No Beliefs That Will Affect Care: None Current Living Situation: Spouse Feels Safe at Home: Yes Dental Care, Regularly: No Seatbelt Use: always Sunscreen Use: Yes Review of Systems A total of 10 systems reviewed and were otherwise negative Physical Exam Vital Signs Vital Signs - 24 hr 03/22/20 12:08 03/22/20 12:18 03/22/20 12:21 Temperature 36.7 C Temperature Source Oral Pulse Rate 75 81 77 Pulse Rate from SpO2 Sensor 79 Pulse Rhythm Regular Pulse Strength Normal Respiratory Rate 19 21 Respiratory Effort / Characteristics Non-Labored Respiratory Depth Normal Respiratory Pattern Regular Blood Pressure 198/102 H 198/102 H Blood Pressure Mean 134 110 Blood Pressure Position Lying Pulse Oximetry 95 95 Oxygen Delivery Method Room Air Sepsis Recent Fever Within 48 Hours No Sepsis New/Unexplained Change in Mental Status N/A Sepsis Action Taken by Nursing No Action Required 03/22/20 12:30 03/22/20 12:31 Temperature Temperature Source Pulse Rate 77 77 Pulse Rate from SpO2 Sensor 77 Pulse Rhythm Pulse Strength Respiratory Rate 20 Respiratory Effort / Characteristics Respiratory Depth Respiratory Pattern Blood Pressure 163/98 H Blood Pressure Mean 112 Blood Pressure Position Pulse Oximetry 95 Oxygen Delivery Method Sepsis Recent Fever Within 48 Hours Sepsis New/Unexplained Change in Mental Status Sepsis Action Taken by Nursing Physical Exam GENERAL: He is oriented to person, place, and time. He appears well-developed a nd well-nourished. He does not appear distressed. HENT: Exam performed. - Head: Normocephalic and atraumatic. - Right Ear: External ear normal. No mastoid tenderness. - Left Ear: External ear normal. No mastoid tenderness. - Mouth/Throat: The oropharynx is clear and moist. No trismus in the jaw. No dental abscesses or uvula swelling. No oropharyngeal exudate or tonsillar abscesses. EYES: Conjunctivae and EOM are normal. Pupils are equal, round, and reactive to light. Right eye exhibits no discharge. Left eye exhibits no discharge. No scleral icterus. NECK: Normal range of motion. Neck supple. No JVD present. No spinous process tenderness present. No carotid bruit present. No rigidity. No tracheal deviation and normal range of motion present. No Brudzinski's sign and no Kernig's sign noted. CV: Normal rate, regular rhythm, normal heart sounds and intact distal pulses. There is no peripheral edema. Palpable radial pulses bue. PULM/CHEST: Effort normal and breath sounds normal. No respiratory distress. No stridor. He has no wheezes. He has no rales. - Chest Wall: He exhibits no tenderness. ABD: The abdomen is soft. Bowel sounds are normal. He has no distension. No mass is present. There is no tenderness. There is no rebound, no guarding, no Capellan's sign and no tenderness at McBurney's point. Rovsig negative. MUSC/SKEL: Normal range of motion. There is no peripheral edema, tenderness or deformity. LYMPH: No cervical adenopathy. NEURO: He is alert and oriented to person, place, and time. He has normal strength. No cranial nerve deficit or sensory deficit. Coordination and gait normal. GCS eye subscore is 4. GCS verbal subscore is 5. GCS motor subscore is 6. Cerebellar tests wnl. NIHSS: 0 SKIN: Skin is warm and dry. He is not diaphoretic. PSYCH: He has a normal mood and affect. Behavior is normal. Judgment and thought content normal. Course Course 1200: Code stroke was called in the field prior to my arrival. I met the patient a CAT scan. Code stroke protocols were followed. Patient was then taken to the resuscitation bay room A1. In the resuscitation bay, the patient is in a choke scale is 0. Cardiac monitoring: An order was placed for continuous cardiac monitoring. The monitor shows a rate of 80 with sinus rhythm 1230: CT of head CTA of head and CTA of neck are negative. 1234: Spoke with Dr. Lacy Pang neurology she states she is currently evaluating another stroke alert in her emergency department at [facility]. She states that given patient has an atrophic scale 0, there would not be much to add for her to evaluate the patient emergently. She did offer to evaluate the patient if his symptoms reoccurred or if he started having ne urological deficits. She did recommend MRI of the patient. I will plan on admitting the patient for TIA and having our in-house neurology see him and having an MRI done for the patient. 1306: Vital signs stable. Labs and imaging within normal limits. Patient will be admitted for TIA to the [facility] service. Dr. [facility] hospitalist was notified of the patient. Aspirin was given for the patient. Administered Medications Discontinued Medications Ioversol (Optiray 320 125ml) 118 ml IV ONCE ONE Stop: 03/22/20 12:12 Last Admin: 03/22/20 12:12 Dose: 118 ml Documented by: [id number] Critical Care Time Critical Care Time: Yes Total Critical Care Time: 38 I have personally spent greater than 38 minutes of critical care time in the direct management of this patient. This includes bedside care, interpretation of diagnostic studies, and testing, discussion with consultants, patient, and fa jaspreet members, and other required patient management activities. This 38 minutes is in excess of all separately billable procedures. Medical Decision Making Laboratory Data Result diagrams: 03/22/20 12:21 03/22/20 12:21 Lab Results 03/22/20 03/22/20 03/22/20 Range/Units 12:18 12:21 12:21 WBC 9.30 (4.8-10.8) K/uL RBC 4.30 L (4.7-6.1) M/uL Hgb 13.1 L (14.0-18.0) g/dL Hct 40.0 L (42-52) % MCV 93.0 (80-100) fL MCH 30.5 (25-34) pg MCHC 32.8 (32-36) g/dL RDW Std Deviation 46.8 H (36.4-46.3) fL RDW Coeff of Cipriano 13.8 (11.5-14.5) % Plt Count 252 (130-400) K/uL MPV 10.1 (7.4-10.4) fL Immature Gran % (Auto) 0.3 % Neut % (Auto) 66.5 % Lymph % (Auto) 24.0 % Mcleod % (Auto) 7.7 % Eos % (Auto) 1.3 % Baso % (Auto) 0.2 % Neut # (Auto) 6.18 (1.4-6.5) K/uL Lymph # (Auto) 2.23 (1.2-3.4) K/uL Mcleod # (Auto) 0.72 H (0.11-0.59) K/uL Eos # (Auto) 0.12 (0-0.5) K/uL Baso # (Auto) 0.02 (0-0.2) K/uL Immature Gran # (Auto) 0.03 H (0.00-0.02) K/uL PT 11.6 (9.0-12.0) Seconds INR 1.1 (0.9-1.1) APTT 24.3 (21.0-31.0) Seconds PTT Ratio 0.9 Sodium (136-145) mmol/L Potassium (3.5-5.1) mmol/L Chloride (98-107) mmol/L Carbon Dioxide (21-32) mmol/L Anion Gap (3-11) BUN (7-18) mg/dl Creatinine (0.6-1.4) mg/dl Est Cr Clr Drug Dosing ml/min Est GFR ( Amer) Est GFR (Non-Af Amer) BUN/Creatinine Ratio (10-20) Glucose (70-99) mg/dl POC Glucose 99 (70-99) mg/dl Calcium (8.5-10.1) mg/dl Magnesium (1.8-2.4) mg/dl Total Bilirubin (0.2-1) mg/dl AST (15-37) U/L ALT (12-78) U/L Alkaline Phosphatase (45-117) U/L Troponin I (0-0.045) ng/ml Total Protein (6.4-8.2) gm/dl Albumin (3.4-5.0) gm/dl Globulin (2.5-4.0) gm/dl Albumin/Globulin Ratio (0.9-2) 03/22/20 Range/Units 12:21 WBC (4.8-10.8) K/uL RBC (4.7-6.1) M/uL Hgb (14.0-18.0) g/dL Hct (42-52) % MCV (80-100) fL MCH (25-34) pg MCHC (32-36) g/dL RDW Std Deviation (36.4-46.3) fL RDW Coeff of Cipriano (11.5-14.5) % Plt Count (130-400) K/uL MPV (7.4-10.4) fL Immature Gran % (Auto) % Neut % (Auto) % Lymph % (Auto) % Mcleod % (Auto) % Eos % (Auto) % Baso % (Auto) % Neut # (Auto) (1.4-6.5) K/uL Lymph # (Auto) (1.2-3.4) K/uL Mcleod # (Auto) (0.11-0.59) K/uL Eos # (Auto) (0-0.5) K/uL Baso # (Auto) (0-0.2) K/uL Immature Gran # (Auto) (0.00-0.02) K/uL PT (9.0-12.0) Seconds INR (0.9-1.1) APTT (21.0-31.0) Seconds PTT Ratio Sodium 134 L (136-145) mmol/L Potassium 4.0 (3.5-5.1) mmol/L Chloride 105 (98-107) mmol/L Carbon Dioxide 26 (21-32) mmol/L Anion Gap 3.0 (3-11) BUN 18 (7-18) mg/dl Creatinine 0.92 (0.6-1.4) mg/dl Est Cr Clr Drug Dosing 92.5 ml/min Est GFR ( Amer) 106.6 Est GFR (Non-Af Amer) 92.0 BUN/Creatinine Ratio 19.4 (10-20) Glucose 90 (70-99) mg/dl POC Glucose (70-99) mg/dl Calcium 9.0 (8.5-10.1) mg/dl Magnesium 1.8 (1.8-2.4) mg/dl Total Bilirubin 0.3 (0.2-1) mg/dl AST 14 L (15-37) U/L ALT 17 (12-78) U/L Alkaline Phosphatase 80 (45-117) U/L Troponin I < 0.015 (0-0.045) ng/ml Total Protein 6.8 (6.4-8.2) gm/dl Albumin 3.6 (3.4-5.0) gm/dl Globulin 3.2 (2.5-4.0) gm/dl Albumin/Globulin Ratio 1.1 (0.9-2) Imaging Data Radiologist's Impression: CT angio neck with con HISTORY: Mental status change Stroke evaluation TECHNIQUE: Multiaxial CT angiography of the neck was performed IV contrast: 120 cc All measurements were calculated based on NASCET criteria. Maximum intensity projection images were also obtained. A dose lowering technique was utilized adhering to the principles of ALARA. COMPARISON STUDY: None. FINDINGS: The aortic arch and proximal great vessels are widely patent. There is no significant stenosis, occlusion, or dissection identified within the bilateral common carotid, internal carotid, or vertebral arteries. Significant plaque formation of the carotid bifurcations bilaterally. 50% narrowing origin right internal carotid artery. 30% narrowing origin left internal carotid artery. Small caliber right vertebral vessel and congenital basis. IMPRESSION: 1. Considerable plaque formation of the carotid bifurcations bilaterally. 2. 50% narrowing origin right internal carotid artery. 3. 30% narrowing origin left internal carotid artery. 4. Small caliber right vertebral vessel on a congenital basis. 5. No evidence for high-grade stenotic process. ACT 112: Negative or not required by law. The above report was generated using voice recognition software. It may contain grammatical, syntax or spelling errors. Electronically signed by: Jeremiah Holguin M.D. 03/22/2020 12:24 PM Dictated: 03/22/20 1222 Transcribed: 03/22/201221 CT angio head w con HISTORY: Mental status change Stroke evaluation TECHNIQUE: Multiaxial CT angiography of the head was performed IV contrast: 120 cc Maximum intensity projection images were also obtained. A dose lowering technique was utilized adhering to the principles of ALARA. COMPARISON: None. FINDINGS: There is no mass, hematoma, midline shift, or acute infarct. Visualized intracranial internal carotid arteries, distal vertebral arteries, and basilar artery are widely patent. There is no significant stenosis, occlusion, or aneurysm seen within the bilateral ACAs, MCAs, or animal maintenance supervisor. IMPRESSION: No significant stenosis, occlusion, or aneurysm within the [place] of [place]. ACT 112: Negative or not required by law. The above report was generated using voice recognition software. It may contain grammatical, syntax or spelling errors. Electronically signed by: Jeremiah Holguin M.D. 03/22/2020 12:26 PM Dictated: 03/22/20 1226 Transcribed: 03/22/201225 CT head/brain wo con CT DOSE: HISTORY: Stroke evaluation TECHNIQUE: Multiaxial CT images of the head were performed without the use of intravenous contrast. A dose lowering technique was utilized adhering to the principles of ALARA. Comparison: None. Findings: The paranasal sinuses and mastoid air cells are clear. The calvarium and skull base are intact. The ventricles and sulci are within normal limits. There is no mass, hematoma, midline shift, or acute infarct. Impression: No acute intracranial abnormality. ACT 112: Negative or not required by law. The above report was generated using voice recognition software. It may contain grammatical, syntax or spelling errors. Electronically signed by: Jeremiah Holguin M.D. 03/22/2020 12:18 PM Dictated: 03/22/20 1216 Transcribed: 03/22/20 1216 ECG Data Indication: + other (code [id number]) Rhythm: + normal sinus ECG Intervals/blocks: + Normal QRS, + Normal MN and + Normal QT-c ECG ST segments: + Normal ST segments MDM Narrative 1200: Code stroke was called in the field prior to my arrival. I met the patient a CAT scan. Code stroke protocols were followed. Patient was then taken to the resuscitation bay room A1. In the resuscitation bay, the patient is in a choke scale is 0. Cardiac monitoring: An order was placed for continuous cardiac monitoring. The monitor shows a rate of 80 with sinus rhythm 1230: CT of head CTA of head and CTA of neck are negative. 1234: Spoke with Dr. Lacy Pang neurology she states she is currently evaluating another stroke alert in her emergency department at [facility]. She states that given patient has an atrophic scale 0, there would not be much to add for her to evaluate the patient emergently. She did offer to evaluate the patient if his symptoms reoccurred or if he started having neurological deficits. She did recommend MRI of the patient. I will plan on admitting the patient for TIA and having our in-house neurology see him and having an MRI done for the patient. 1306: Vital signs stable. Labs and imaging within normal limits. Patient will be admitted for TIA to the [facility] service. Dr. [facility] hospitalist was notified of the patient. Aspirin was given for the patient. Impression & Plan Brain TIA Discharge Plan Visit Data Chief Complaint: Stroke Alert Stated Complaint: Stroke Alert ED Provider: Sumanth Eason Discharge Problem: Brain TIA Patient Disposition: Being Evaluated by Hospitalist Forms Stand Alone Forms: My [facility] Prescriptions Prescriptions: No Action aspirin 81 mg tablet,delayed release (DR/EC) 81 mg PO QAM Qty: 90 RF: 1 atorvastatin 40 mg tablet 40 mg PO QAM Qty: 90 RF: 1 aspirin [Aspir-81] 81 mg Tablet,Delayed Release (Dr/Ec) 81 mg PO QAM RF: 0 Referrals Referrals: Karina Dee CRNP [Primary Care Provider] -
[2020-03-22 12:38] LABS: Basophils # (auto) 0.02 K/uL (0-0.2); Basophils % (auto) 0.2 %; Eosinophils # (auto) 0.12 K/uL (0-0.5); Eosinophils % (auto) 1.3 %; Hemoglobin 13.1 g/dL (14.0-18.0); Immature Granulocytes # (auto) 0.03 K/uL (0.00-0.02); Immature Granulocytes % (auto) 0.3 %; Lymphocytes # (auto) 2.23 K/uL (1.2-3.4); Mean Corpuscular Hemoglobin 30.5 pg (25-34); Mean Corpuscular Hgb Conc 32.8 g/dL (32-36); Mean Platelet Volume 10.1 fL (7.4-10.4); Monocytes # (auto) 0.72 K/uL (0.11-0.59); Monocytes % (auto) 7.7 %; Neutrophils # (auto) 6.18 K/uL (1.4-6.5); Neutrophils % (auto) 66.5 %; Platelet Count 252 K/uL (130-400); RDW Coefficient of Variation 13.8 % (11.5-14.5); RDW Standard Deviation 46.8 fL (36.4-46.3)
[2020-03-22 12:51] LABS: INR 1.1 (0.9-1.1); Partial Thromboplastin Ratio 0.9; Partial Thromboplastin Time 24.3 Seconds (21.0-31.0); Prothrombin Time 11.6 Seconds (9.0-12.0)
[2020-03-22 12:56] LABS: Albumin Level 3.6 gm/dl (3.4-5.0); Aspartate Aminotransferase 14 U/L (15-37); BUN Creatinine Ratio 19.4 (10-20); Blood Urea Nitrogen 18 mg/dl (7-18); Carbon Dioxide 26 mmol/L (21-32); Chloride 105 mmol/L (98-107); Creatinine Clr Calc Pharmacy 92.5 ml/min; Est GFR (African American) 106.6; Glucose 90 mg/dl (70-99); Magnesium 1.8 mg/dl (1.8-2.4); Sodium 134 mmol/L (136-145)
[2020-03-22 13:01] LABS: Alanine Aminotransferase 17 U/L (12-78); Albumin Globulin Ratio 1.1 (0.9-2); Alkaline Phosphatase 80 U/L (45-117); Bilirubin,Total 0.3 mg/dl (0.2-1); Globulin 3.2 gm/dl (2.5-4.0); Total Protein 6.8 gm/dl (6.4-8.2); Troponin I < 0.015 ng/ml (0-0.045)
[2020-03-22] MEDS ORDERED: ASPIRIN CHEW 324 MG PO STA (13:06)
[2020-03-22] MEDS ORDERED: CLOPIDOGREL BISULFATE 300 MG TAB PO STA (14:49)
--- NOTE | 2020-03-22 14:54 | History & Physical Report ---
Date of Service March 22, 2020 Assessment & Plan (1) Stroke-like symptoms: Recent left anterior superior cerebellum CVA - possible late recrudesce of this vs. new acute TIA. Only current symptoms are those left over from prior CVA MRI brain w/o contrast Will defer repeat TTE to neurology if felt to be necessary Given age and prior lipid panel results will increase atorvastatin dose to 80mg PO daily ASA 324mg PO given in ER, continue 81mg PO daily Plavix loading dose now 300mg, then 75mg PO daily - if MRI shows nill acute likely he will not require this PT/OT/speech Allow permissive hypertension currently Consult his neurologist Dr Quick (2) Abnormal CXR: RLL hazziness on prior CXR. Will repeat with 2 view. Given smoking history concern would be for lung ca. if persistent (3) Bilateral carpal tunnel syndrome: Consider O/P NCS to determine possible benefit from surgery given ongoing left hand weakness. However suspect the majority is stroke related. (4) Tobacco use disorder: Cut down considerably since last admission. Congratulated on going down to 2 cigarettes/day. Encouraged for further cessation of smoking. (5) Syncope: Suspected secondary to dehydration in setting of prior cerebellar stroke. NSS 1L IV overnight Monitor for arrhythmia on telemetry. (6) DVT prophylaxis: Early mobilization. Likely short stay in hospital. No chemical VTE prophylaxis required. Admission and Anticipated Discharge Date Admission Date: 03/22/2020 History of Present Illness Chief Complaint: Stroke-like symptoms Primary Care Provider: DAYTON Beal Liam Thayer is a 59-year-old male who presents to the ER with recurrence of his strokelike symptoms similar to his previous stroke in November 2019. On this occasion his symptoms started while driving, he started feeling lightheaded with blurred vision and left-sided numbness. Associated nausea and vomiting. Possible syncopal episode. Unwitnessed. These were the same symptoms to his left CVA cerebellar stroke in November. He currently feels back to his baseline although has been left with left-sided upper extremity weakness and dorsal forearm numbness from his prior stroke. 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 No infective symptoms such as fevers, chills, dysuria, shortness of breath, cough, nasal congestion, loss of taste or smell, abdominal pain, change in bowels, melena, bright red blood in stool. No known COVID-19 exposure. Allergies Allergy/AdvReac Type Severity Reaction Status Date / Time No Known Allergies Allergy Unknown Verified 03/22/20 12:39 Home Medications Home Medications Medication Instructions Recorded Confirmed Type aspirin 81 mg tablet,delayed 81 mg PO QAM #90 tab 01/18/20 Rx release atorvastatin 40 mg tablet 40 mg PO QAM #90 tab 01/18/20 Rx aspirin [Aspir-81] 81 mg PO QAM 03/22/20 03/22/20 History Past Med/Surg History Medical History Bilateral carpal tunnel syndrome Cerebellar stroke (Resolved) CVA (cerebral vascular accident) No pertinent family history Surgical History H/O esophagogastroduodenoscopy (Inactive) H/O hernia repair (Inactive) History of esophagogastroduodenoscopy (EGD) Family History Mother Myocardial infarction Father Myocardial infarction Denies family history of Ovarian cancer Prostate cancer Breast cancer Colorectal cancer Stroke Social History Smoking Status: Current every day smoker Tobacco Type: Cigarettes packs per day: 1; Cigarettes Per Day: 2; Second Hand Exposure: No; Hx Alcohol Use: Yes Alcohol type: beer Hx Substance Use: Yes Last Used Substance: Days (ago) Last Used Substance Other:: MJ yesterday Substance Use Type Other:: MJ Preferred Language: Malagasy Communication Ability: Effective Plumbing Service Technician Required: No Beliefs That Will Affect Care: None Current Living Situation: Spouse Other Information That Helps Us Care for You: No Feels Safe at Home: Yes Safety Concerns: Feels Safe At This Time Dental Care, Regularly: No Seatbelt Use: always Sunscreen Use: Yes Review of Systems Review of Systems: All systems reviewed & are unremarkable except as noted in HPI & below Physical Exam Constitutional: WD/WN, vitals as above Eyes: PERRL, conjunctivae normal, anicteric sclerae ENMT: external ear and nose normal, oropharynx normal Neck: trachea midline, no thyromegaly Respiratory: normal respiratory effort, lungs clear to auscultation Cardiovascular: RRR, no murmur, no edema Gastrointestinal (Abdomen): normal bowel sounds, soft, nontender, no hepatosplenomegaly Musculoskeletal: Right hand muscle wasting with thenar > hypopthenar muscles Skin: no rashes, warm and dry Neurologic: moves all extremities, + focal motor deficit and awake; not confused Speech / Cognition: normal speech Motor/Sensory: + pronator drift (Right-sided) and + sensory deficit (Right-sided median nerve distribution numbness, left-sided dorsal forearm and palmar aspect of his hand numbness); no tremor Psychiatric: A+Ox3, euthymic affect Genitourinary: no CVA tenderness Lymphatic: no cervical or axillary lymphadenopathy Results & Data Results & Data ([facility]) Vital Signs (Past 12 Hours) Vital Signs Temp Pulse Pulse Resp BP BP Pulse Ox 03/22/20 13:32 74 16 175/95 H 95 03/22/20 12:31 77 20 163/98 H 95 03/22/20 12:30 77 03/22/20 12:21 77 21 198/102 H 95 03/22/20 12:18 81 03/22/20 12:08 36.7 C 75 19 198/102 H [address] head/brain wo con Impression: No acute intracranial abnormality. CT angio head w con IMPRESSION: No significant stenosis, occlusion, or aneurysm within the [place] of [place]. CT angio neck with con IMPRESSION: 1. Considerable plaque formation of the carotid bifurcations bilaterally. 2. 50% narrowing origin right internal carotid artery. 3. 30% narrowing origin left internal carotid artery. 4. Small caliber right vertebral vessel on a congenital basis. 5. No evidence for high-grade stenotic process. ECG Indication: other (Strokelike symptoms) Rate (beats per minute): 83 Rhythm: normal sinus Findings: + PAC Comparison ECG Date: from (11/30/2019) Change: no significant change Code Status & VTE Plan Code Status Full VTE Prophylaxis Plan VTE Prophylaxis will be ordered: No PG Care Time/CCT Total # of Minutes Spent Total Time Spent with Patient: Total time spent is greater than 50% in coordination of care (as documented) at patient's floor/unit and/or counseling patient: Coding Level of Care Code 02561 OBS Care - Level 3 Diagnoses Stroke-like symptoms R29.90 Abnormal CXR R93.89 Bilateral carpal tunnel syndrome G56.03 Tobacco use disorder F17.200 Syncope R55 DVT prophylaxis Z29.9
[2020-03-22] MEDS ORDERED: ACETAMINOPHEN 325 MG TAB PO PRN (16:16)
[2020-03-22] MEDS ORDERED: PHARMACIST DISCHARGE MED REC CONSULT PRN (16:16)
--- NOTE | 2020-03-22 17:11 | XRay Report ---
XR chest 2V PA/lateral CLINICAL HISTORY: prior hazy opacity in RLL COMPARISON STUDY: 11/18/2019 FINDINGS: The lungs are now considered clear. The right infrahilar density previously described has r esolved. Diaphragms are smooth. Pulmonary apices are clear. IMPRESSION: No acute process. The lungs are now considered clear. ACT 112: Negative or not required by law. The above report was generated using voice recognition software. It may contain grammatical, syntax or spelling errors. Electronically signed by: Jeremiah Holguin M.D. 03/22/2020 5:10 PM
--- NOTE | 2020-03-22 17:18 | Magnetic Resonance Report ---
MR brain wo con HISTORY: Mental status change Left-sided numbness, blurred vision TECHNIQUE: Multiplanar multisequence MRI of the brain was performed without the use of contrast. COMPARISON STUDY: 11/18/2019 FINDINGS: There are no areas of restricted diffusion to suggest acute infarction. The midline structu res are intact. The paranasal sinuses are clear. The mastoid air cells are clear. The ventricles and sulci are within normal limits for age. There is no mass, hematoma, midline shift. The major vascular flow-voids at the skull base are well maintained. Old left cerebellar infarct. Mild chronic small vessel change of aging. IMPRESSION: No acute intracranial abnormality. Findings of age-related atrophy and chronic small vessel change. O ld left cerebellar infarct. No acute intracranial abnormality. ACT 112: Negative or not required by law. The above report was generated using voice recognition software. It may contain grammatical, syntax or spelling errors. Electronically signed by: Jeremiah Holguin M.D. 03/22/2020 5:17 PM
--- NOTE | 2020-03-22 18:48 | Electrocardiogram Report ---
Test Reason : Blood Pressure : / mmHG Vent. Rate : 083 BPM Atrial Rate : 083 BPM P-R Int : 148 ms QRS Dur : 082 ms QT Int : 382 ms P-R-T Axes : 074 070 046 degrees QTc Int : 448 ms Sinus rhythm with Premature atrial complexes Otherwise normal ECG When compared with ECG of 30-NOV-2019 21:36, Premature atrial complexes are now Present Confirmed by Mehrdad Ling ([id number]) on 03/22/2020 6:47:39 PM Referred By: REFERRED SELF Confirmed By:Adan Ling
[2020-03-22] MEDS ORDERED: SODIUM CHLORIDE 0.9% 1000ML 1,000 ML IV SCH (20:45)
[2020-03-22] MEDS ORDERED: ATORVASTATIN 40 MG TAB PO SCH (21:00)
[2020-03-23 06:26] LABS: Basophils # (auto) 0.03 K/uL (0-0.2); Basophils % (auto) 0.4 %; Eosinophils # (auto) 0.33 K/uL (0-0.5); Eosinophils % (auto) 4.6 %; Hematocrit (blood only) 42.2 % (42-52); Hemoglobin 14.4 g/dL (14.0-18.0); Immature Granulocytes # (auto) 0.01 K/uL (0.00-0.02); Immature Granulocytes % (auto) 0.1 %; Lymphocytes # (auto) 1.68 K/uL (1.2-3.4); Lymphocytes % (auto) 23.3 %; Mean Corpuscular Hemoglobin 32.3 pg (25-34); Mean Corpuscular Hgb Conc 34.1 g/dL (32-36); Mean Corpuscular Volume 94.6 fL (80-100); Mean Platelet Volume 10.5 fL (7.4-10.4); Monocytes # (auto) 0.61 K/uL (0.11-0.59); Monocytes % (auto) 8.5 %; Neutrophils # (auto) 4.55 K/uL (1.4-6.5); Neutrophils % (auto) 63.1 %; Platelet Count 271 K/uL (130-400); RDW Standard Deviation 48.1 fL (36.4-46.3); Red Blood Count 4.46 M/uL (4.7-6.1); White Blood Count 7.21 K/uL (4.8-10.8)
[2020-03-23 07:08] LABS: BUN Creatinine Ratio 19.3 (10-20); Calcium 8.9 mg/dl (8.5-10.1); Creatinine Clr Calc Pharmacy 86.6 ml/min; Est GFR (African American) 106.6
[2020-03-23] MEDS ORDERED: CLOPIDOGREL BISULFATE 75 MG TAB PO SCH (09:00)
[2020-03-23] MEDS ORDERED: ASPIRIN 81 MG ECTAB PO SCH (09:00)
--- NOTE | 2020-03-23 09:00 | Neurology Consultation ---
Date of Consultation March 23, 2020 Assessment & Plan (1) Cerebellar stroke: (2) Stroke-like symptoms: Liam Thayer is a 59 yo man w/ PMH of tobacco abuse, marijuana abuse, alcohol abuse, HLD, known right vertebral artery occlusion and h/o left cerebellar infarct in 11/2019 who p/t [facility] after acute onset of dizziness, left- sided numbness and blurry vision. Symptom localization: right thalamus or right basis pontis Stroke mechanism: cardioembolic vs vessel to vessel embolus (TIA vs HTNsive urgency) TIA WorkUp: - CT head: shows hypodensity in old left SCA territory stroke, no new hypodensity or hemorrhage noted - CTA head/neck: shows small caliber basilar, known chronic right vertebral artery occlusion, mild stenosis at bilateral ICA bifurcations, no other LVO, high-grade stenosis or aneurysm noted - MRI brain: shows no acute infarct, mild small vessel disease, encephalomalacia in the old left cerebellar stroke - TTE: pending - Telemetry: pending - A1c: pending - FLP: 132 - UDS: pending - Troponin, TSH: negative, WNL TIA Management: - Acute treatment: ASA - Continuous cardiac monitoring, recommend having either 30 day event monitor or loop recorder placed - Vitals, Neurochecks, NIHSS per unit routine - BP parameters: SBP CAP 180, would start anti-hypertensives given ongoing HTN - Complete ischemic stroke workup with TTE without bubble - Consult speech, PT, OT for supportive management - Counselled concerning stroke education, smoking cessation, healthy diet, physical activity, weight loss, cutting back on alcohol - Follow up with PCP for assistance with outpatient goals (BP <130/80, LDL <70, A1c <7) - Follow up in neurology clinic in 6-8 weeks (he prefers virtual phone check in) Secondary Stroke Prevention: - Antiplatelet: ASA 81mg po daily/plavix 75mg daily x 21 days, then just plavix 75mg daily thereafter - Anticoagulation: Not indicated at this time - Statin: Atorvastatin 40mg vs. 80 po daily HTN: - BP parameters, as above - Start home medications with goal of lowering BP to normotension over next 3-4 days FEN/GI: - Diet: Cardiac HH diet and PO meds given absence of bulbar signs or symptoms - Monitor lytes and replete PRN Glucose Control: - Sliding scale insulin and accuchecks per primary team to avoid hyperglycemia Thank you for this interesting consult. Plan of care was discussed with primary team. Please call with any questions. He is stable for discharge from a neurological standpoint. History of Present Illness Attending Physician: Mike Wheeler, DO History of Present Illness Liam Thayer is a 59 yo man w/ PMH of tobacco abuse, marijuana abuse, alcohol abuse, HLD, known right vertebral artery occlusion and h/o left cerebellar infarct in 11/2019 who p/t [facility] after acute onset of dizziness, left-sided numbness and blurry vision. 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 In the ED, patient was afebrile, heart rate 75, BP 198/102, respiratory rate 19, satting 95% on room air. Labs notable for WBC 9.3, hemoglobin 13.1 with MCV 93, platelets 252, sodium mildly low at 134, creatinine 0.92, glucose 90, INR 1.1, LFTs within normal, troponin negative, calcium/magnesium within normal. Images independently reviewed. CT head shows hypodensity in old left SCA territory stroke, no new hypodensity or hemorrhage noted. CTA head and neck shows small caliber basilar, known chronic right vertebral artery occlusion, mild stenosis at bilateral ICA bifurcations, no other LVO, high-grade stenosis or aneurysm noted. MRI brain shows no acute infarct, mild small vessel disease, encephalomalacia in the old left cerebellar stroke. On examination today, he reports that he was driving from the store when he noticed acute onset dizziness (described as more as a lightheadedness like he is going to pass out) associated with nausea and vomiting. He pulled over and called his who then called an ambulance given concern for possible stroke. He reports he has been taking aspirin without any missed doses. Has cut down on smoking to 2 cigarettes/day. Continues to drink several beers daily and smoke at least 1 joint of marijuana daily. Stroke Workflow: CT ASPECT: 10 Time IV tpa is given: NA tPA bolus: NA tPA dose: NA If tpa not given, why not: known chronic occlusion, uncontrolled hypertension >185 systolic If delay >60min after hospital arrival, why: NA If no IA therapy, why not: No LVO on CTA (only had known chronic right vert occlusion) Patient Features: Admission NIHSS: 0 Admission Modified Destiny Scale: 1 Time patient last seen well: 11:15am on 03/22 Wake up stroke: No Intubation status: Not intubated Stroke Risk Factors: Hypertension: Y Hyperlipidemia: Y Atrial Fib: N Tobacco: Y Diabetes: N Taking NOAC or warfarin: N Allergies Allergy/AdvReac Type Severity Reaction Status Date / Time No Known Allergies Allergy Unknown Verified 03/22/20 12:39 Home Medications Home Medications Medication Instructions Recorded Confirmed Type aspirin 81 mg tablet,delayed 81 mg PO QAM #90 tab 01/18/20 Rx release atorvastatin 40 mg tablet 40 mg PO QAM #90 tab 01/18/20 Rx aspirin [Aspir-81] 81 mg PO QAM 03/22/20 03/22/20 History Patient History Medical History Bilateral carpal tunnel syndrome Cerebellar stroke (Resolved) CVA (cerebral vascular accident) No pertinent family history Surgical History H/O esophagogastroduodenoscopy (Inactive) H/O hernia repair (Inactive) History of esophagogastroduodenoscopy (EGD) Family History Mother Myocardial infarction Father Myocardial infarction Denies family history of Ovarian cancer Prostate cancer Breast cancer Colorectal cancer Stroke Social History Smoking Status: Current every day smoker Tobacco Type: Cigarettes packs per day: 1; Cigarettes Per Day: 2; Second Hand Exposure: No; Hx Alcohol Use: Yes Alcohol type: beer Hx Substance Use: Yes Last Used Substance: Days (ago) Last Used Substance Other:: MJ yesterday Substance Use Type Other:: MJ Preferred Language: Cambodian Communication Ability: Effective 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 Exam (Neuro) Physical Exam: General Exam: GEN: NAD, sitting down in examination bed. HEENT: No conjunctival injection, no rhinorrhea CV: RRR on monitor, no significant edema. PULM: Nonlabored respirations on room air. Neuro Exam: MS: Awake and Alert. Oriented to person, place, and date. Speech fluent and appropriate without dysarthria or paraphasic errors. Language intact including naming, comprehension, repetition. Cognition and memory grossly intact. Attention intact. No neglect. CN: Visual dumas full, + blink to threat bilaterally. No extinction to double simultaneous stimuli. Normal fundoscopic exam. PERRLA OU. EOMI without nystagmus. Facial sensation intact to LT. Facial muscles full and symmetric. Hearing intact to finger rub bilaterally. Uvula midline with symmetric palatal elevation. SCMs and shoulder shrug normal. Tongue midline. MOTOR: Normal bulk and tone. No pronator drift. BUE strength 5/5 at deltoids, biceps, triceps, wrist flexors and extensors, and finger flexors bilaterally. BLE strength 5/5 at iliopsoas, hamstrings, quadriceps, tibialis anterior, and gastrocnemius bilaterally. REFLEXES: 1+ at biceps, triceps, brachioradialis, trace patella, and absent Achilles bilaterally. Flexor plantar responses bilaterally. SENSORY: Intact to LT/vibration throughout, no extinction to double simultaneous stimuli. COORDINATION: No dysmetria or ataxia on [id number] bilaterally. Normal [place] bilaterally. GAIT: Normal gait and arm swing. Normal Romberg. NIH STROKE SCALE 1A. Level of Consciousness (0-3) = 0 1B. LOC Questions (0-2) = 0 1C. LOC Commands (0-2) = 0 2. Best Horizontal Gaze (0-2) = 0 3. Visual Dumas (0-3) = 0 4. Facial Palsy (0-3) = 0 5. Motor Arm Right (0-4) = 0 Left (0-4) = 0 6. Motor Leg Right (0-4) = 0 Left (0-4) = 0 7. Limb Ataxia (0-2) = 0 8. Sensory (0-2) = 0 9. Best Language (0-3) = 0 10. Dysarthria (0-2) = 0 11. Extinction and Inattention (0-2) = 0 NIHSS TOTAL = 0 Results & Data ([facility]) Vital Signs (Past 12 Hours) Vital Signs Temp Pulse Pulse Pulse Resp BP Pulse Ox 03/23/20 07:13 64 03/23/20 07:04 36.9 C 67 20 144/98 H 95 03/23/20 03:56 36.7 C 61 18 134/67 97 03/22/20 23:30 37.0 C 69 18 125/58 L 96 PG Care Time/CCT Total # of Minutes Spent Total Time Spent with Patient: Total time spent is greater than 50% in coordination of care (as documented) at patient's floor/unit and/or counseling patient: Coding Level of Care Code 95099 Inpt Consult Level 5 Diagnoses Cerebellar stroke I63.9 Stroke-like symptoms R29.90
[2020-03-23] MEDS ORDERED: lisinopriL 20 MG TAB PO SCH (09:30)
[2020-03-23] MEDS ORDERED: STROKE PATIENT DISCHARGE STA (11:15)
--- NOTE | 2020-03-23 11:19 | XCELERA ---
[id number]
--- NOTE | 2020-03-23 11:21 | Discharge Summary ---
Date of Service March 23, 2020 Admission HPI Per Admitting Provider Liam Thayer is a 59-year-old male who presents to the ER with recurrence of his strokelike symptoms similar to his previous stroke in November 2019. On this occasion his symptoms started while driving, he started feeling lightheaded with blurred vision and left-sided numbness. Associated nausea and vomiting. Possible syncopal episode. Unwitnessed. These were the same symptoms to his left CVA cerebellar stroke in November. He currently feels back to his baseline although has been left with left-sided upper extremity weakness and dorsal forearm numbness from his prior stroke. 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 No infective symptoms such as fevers, chills, dysuria, shortness of breath, cough, nasal congestion, loss of taste or smell, abdominal pain, change in bowels, melena, bright red blood in stool. No known COVID-19 exposure. Principal Diagnosis Transient ischemic attack Discharge Exam Constitutional WD/WN, vitals as above Eyes PERRL, conjunctivae normal, anicteric sclerae ENMT external ear and nose normal, oropharynx normal Neck trachea midline, no thyromegaly Respiratory normal respiratory effort, lungs clear to auscultation Cardiovascular RRR, no murmur, no edema Gastrointestinal (Abdomen) normal bowel sounds, soft, nontender, no hepatosplenomegaly Musculoskeletal no cyanosis or clubbing, extremities motor strength 5/5 Skin no rashes, warm and dry Neurologic patellar DTR's 2+ bilat, sensation intact and PERRL, EOMI, accommodation nl, no face palsy, no dysarthria Psychiatric A+Ox3, euthymic affect Lymphatic no cervical or axillary lymphadenopathy Discharge Data Allergies Allergy/AdvReac Type Severity Reaction Status Date / Time No Known Allergies Allergy Unknown Verified 03/22/20 12:39 Consultations 03/22/20 13:17 ED Decision to Admit Stat 03/22/20 14:41 Consult Neurology Routine 03/22/20 16:16 Consult Case Management - Discharge Planning Routine Ordered Studies 03/22/20 12:08 CT angio head w con Stat CT angio neck with con Stat CT head/brain wo con Stat 03/22/20 16:16 MR brain wo con Routine Hospital Course (1) Brain TIA: MRI brain showed evidence of prior stroke, no evidence of new stroke symptoms completely resolved secondary stroke prevention: aspirin and Plavix combined x 21 days then just Plavix 75mg daily increase Lipitor to 80mg daily as LDL not at goal try to stop smoking, he is down significantly from 2 packs per day to 2 cigarettes in the morning, confirms this blood pressure control, not at goal with pressures > 140 systolic, start on Lisinopril 20mg daily pre-diabetes with HbA1c of 5.9%, encouraged to limit carbohydrates, discuss further with PCP further stroke work up: get Holter monitor 30 days as outpatient, will have extractions technologist send to him (2) Tobacco use disorder: cut back from 2 ppd to 2 cigarettes in the morning confirms this is true commended him for his significant decrease in cigarettes (3) Pre-diabetes: educated on low carb diet (4) Dyslipidemia: increase Lipitor from 40mg to 80mg daily (5) Hypertension: BP > 140 systolic, not at goal started on Lisinopril 20mg daily warned him of side effects of dry cough follow up with BMP in 2 weeks with PCP Total Time Total Time Spent Total Time Spent (In Minutes): 32 minutes Total Time Includes: Examination of the Patient, Discharge Planning, Medication Reconciliation, Communication With Other Providers (Dr. Quick) and Other ( at the bedside, updated her on plan) Discharge Plan Discharge Items Patient Disposition: Home - Self-Care Reason For Visit: STROKE-LIKE SYMPTOMS Discharge Diagnosis: Transient ischemic attack Hypertension Dyslipidemia Condition on Discharge: Good Goals: continue medical management of stroke Holter monitor for 30 days to look for atrial fibrillation follow up with PCP for blood pressure check Activity: Resume your previous activity Driving/Machine Use: Resume 1 day after discharge Weightbearing: Full weightbearing Non-emergency contact: Primary Care Provider and Neurologist Call non-emergency contact if: you have any medication questions and your symptoms worsen Follow-up/Referrals: Karina Dee CRNP [Primary Care Provider] - 03/31/20 10:30 am (one week) Charisma Quick MD [Physician] - 05/14/20 8:30 am (8 weeks) Diet: Heart Healthy Addtl Attending Provider Instructions: Medications: - PLAVIX: 75mg daily, continue this for stroke prevention - ASPIRIN: 81mg daily, continue to take this with Plavix for 21 days, then STOP aspirin and only take the Plavix - LIPITOR: increase to 80mg daily as your cholesterol is NOT at goal - LISINOPRIL: 20mg daily, new blood pressure medication to help reduce blood pressure and reduce risk of stroke TIA: symptoms all resolved MRI without evidence of new stroke plan for aspirin and Plavix together x 21 days then just Plavix Lipitor increased to 80mg Lisinopril for blood pressure control HbA1c is pedning but it was 5.8% in the recent past, this is pre-diabetes, limit complex carbs (pastas, breads) and limit sweets echocardiogram is pending neurology recommends getting Holter 30 day monitor at home to look for atrial fibrillation, will set this up this week, will be delivered to your home with instructions Risk Factors for Stroke: You can reduce your chances of stroke by working with your medical provider to adopt a healthy lifestyle. Some specific ways to lower your chance of stroke are: * If you are a smoker, now is the time to stop smoking cigarettes * If you are diabetic, improve the control of your blood sugars * Avoid excessive amounts of alcohol * Control high blood pressure * Lose weight if you are overweight * Be sure to lead an active lifestyle * Eat a healthy diet low in salt, cholesterol and fat You should know about other risk factors for stroke that you are unable to control. These include: * Age 55 years or older * Male gender * Certain racial groups: , or / * Family History of Stroke, Mini stroke or Heart Attack * Sickle Cell Disease Follow Up: It is important for you to keep your follow up appointments with your medical provider. Who to Call and When: Medical Emergencies: Call 911 immediately if you experience any of the following warning signs and symptoms of Stroke: * Sudden numbness or weakness of the face, arm or leg, especially on one side of the body * Sudden confusion, trouble speaking or understanding * Sudden trouble seeing in one or both eyes * Sudden trouble walking, dizziness, loss of balance or coordination * Sudden severe headache with no cause Do not delay calling 911 if you experience any warning signs or symptoms of a stroke. Delay in seeking medical attention may affect what treatments can be given to you. . Pending Studies at Discharge: Yes Studies:: echocardiogram Hemoglobin A1c Stand-Alone Forms: Medications to Prevent Stroke, My [facility], Smoking Cessation Medications and DC Order Prescriptions: New atorvastatin 40 mg Tablet 80 mg PO QPM 30 Days Qty: 60 RF: 3 lisinopril 20 mg Tablet 20 mg PO QAM 30 Days Qty: 30 RF: 3 clopidogrel 75 mg Tablet 75 mg PO QAM 30 Days Qty: 30 RF: 3 Continued aspirin [Aspir-81] 81 mg Tablet,Delayed Release (Dr/Ec) 81 mg PO QAM 30 Days Qty: 30 RF: 0 Discontinued aspirin 81 mg tablet,delayed release (DR/EC) 81 mg PO QAM Qty: 90 RF: 1 atorvastatin 40 mg tablet 40 mg PO QAM Qty: 90 RF: 1 Discharge Orders: Discharge Order (Routine); Ordered 03/23/20 Ordered By: Mike Del Angel/Other Patient Handouts: TIA Dc, Atorvastatin tablets, Clopidogrel tablets, Lisinopril tablets Admission Data Admit Date/Time: 03/22/20 14:49 Attending Provider: Mike Wheeler Admit Provider: Romaine Taylor Primary Care Provider: Karina Dee Other Providers: Romaine Taylor ; Charisma Quick Other Interventions: Discharge Summary Assessment (RN) Last Done: 03/23/20 11:19 DC Date/Time DO NOT enter until pt leaves facility: 03/23/20 12:15 Coding Level of Care Code 06464 OBS Care - Discharge Diagnoses Brain TIA G45.9 Tobacco use disorder F17.200 Pre-diabetes R73.03 Dyslipidemia E78.5 Hypertension I10
--- NOTE | 2020-03-23 11:34 | Pharmacy Report ---
Pharmacist Stroke Counseling - Date of Service March 23, 2020 - Scope: Pharmacy has been consulted to provide medication discharge counseling for this patient admitted with transient ischemic attack as per the Pharmacist Discharge Counseling for Stroke Patients Protocol. - Medications on Discharge: New Rx's Medication Instructions Recorded aspirin [Aspir-81] 81 mg PO QAM 30 Days #30 tab 03/23/20 atorvastatin 80 mg PO QPM 30 Days #60 tab 03/23/20 clopidogrel 75 mg PO QAM 30 Days #30 tab 03/23/20 lisinopril 20 mg PO QAM 30 Days #30 tab 03/23/20 - Action: The above medications, specifically ones for stroke treatment/prophylaxis, have been reviewed in detail with the patient and patient bank representative prior to discharge. This includes indication, common adverse reactions, drug interactions, and medication administration. Medication counseling has been employed using the teach-back method to ensure understanding. - Outcome: The patient and patient bank representative (, Samantha) have demonstrated understanding of the medications. Additional comments: - Stroke Discharge Counseling was completed via telephone secondary to the COVID-19 pandemic. - Spoke with both patient and his , Samantha. Both parties demonstrated clear understanding of all medications - Both were given ample time to have any/all questions answered Thank you for allowing pharmacy to be involved in the care of this patient. Please call [phone] with any additional questions
[2020-03-24 07:01] LABS: Estimated Average Glucose 120 mg/dl; Hemoglobin A1C 5.8 % (4.5-5.6)
== END 2020-03-23 12:15 | disposition home or self-care (01) ==
LOC: ED 12:06 → 2E 12:06 → MERGE 12:06 → SUATTDRO 14:49 → 2E 15:55

== ENCOUNTER 2023-02-22 21:18 | Observation (INO) ==
[2023-02-22] MEDS ORDERED: SODIUM CHLORIDE 0.9% 1000ML 1,000 ML IV SCH (21:30)
[2023-02-22] MEDS ORDERED: OPTIRAY 320 125ml IV ONE (21:40)
[2023-02-22 21:54] LABS: iSTAT Hemoglobin 13.6 g/dl (14.0-18.0); iSTAT Ionized Calcium 1.14 mmol/l (1.12-1.32); iSTAT Potassium 4.1 mmol/L (3.3-5.0)
[2023-02-22 22:19] LABS: Appearance Urine Clear (Clear); Bilirubin Urine Negative (Negative); Blood Urine Negative (Negative); Color Urine Yellow; Glucose Urine UA Negative (Negative); Ketones Urine Negative (Negative); Leukocyte Esterase Urine Negative (Negative); Nitrite Urine Negative (Negative); Protein Urine Negative (Negative); Specific Gravity Urine 1.009 (1.000-1.030); Urobilinogen Urine Negative (Negative); pH Urine 5.5 (4.5-7.5)
[2023-02-22 22:21] LABS: Basophils # (auto) 0.07 K/uL (0-0.2); Basophils % (auto) 0.8 %; Eosinophils # (auto) 0.35 K/uL (0-0.50); Hematocrit (blood only) 39.2 % (42.0-52.0); Immature Granulocytes # (auto) 0.04 K/uL (0.01-0.20); Immature Granulocytes % (auto) 0.5 %; Lymphocytes # (auto) 3.48 K/uL (1.2-3.4); Lymphocytes % (auto) 39.8 %; Mean Corpuscular Hemoglobin 30.8 pg (25.0-34.0); Mean Corpuscular Hgb Conc 33.2 g/dL (32.0-36.0); Mean Corpuscular Volume 92.9 fL (80.0-100.0); Mean Platelet Volume 9.8 fL (9.4-12.4); Monocytes # (auto) 0.57 K/uL (0.11-0.59); Monocytes % (auto) 6.5 %; Neutrophils # (auto) 4.23 K/uL (1.40-6.50); Neutrophils % (auto) 48.4 %; Platelet Count 270 K/uL (130-400); RDW Coefficient of Variation 13.8 % (11.5-14.5); RDW Standard Deviation 46.6 fL (36.4-46.3); Red Blood Count 4.22 M/uL (4.70-6.10); White Blood Count 8.74 K/ul (4.8-10.8)
[2023-02-22 22:37] LABS: Albumin Globulin Ratio 1.8 (0.9-2); Albumin Level 4.7 gm/dl (3.4-5.0); BUN Creatinine Ratio 15.3 (10-20); Bilirubin,Total 0.2 mg/dl (0.2-1.0); Calcium 9.2 mg/dl (8.6-10.3); Creatinine Clr Calc Pharmacy 92.7 ml/min; Est GFR (African American) 109.8 ml/min; Est GFR (Non-African American) 94.7 ml/min; Globulin 2.6 gm/dl (2.5-4.0); Magnesium 2.1 mg/dl (1.7-2.4); Potassium 4.1 mmol/L (3.5-5.1); Total Protein 7.3 gm/dl (6.0-8.3)
[2023-02-22 22:45] LABS: Troponin I High Sensitivity 5.5 pg/ml (0-20)
[2023-02-22 22:56] LABS: Amphetamines+Metham, Urine Neg (Neg); Barbiturates, Urine Neg (Neg); Benzodiazepine, Urine Neg (Neg); Cocaine, Urine Neg (Neg); MDMA (Ecstacy), Urine Neg (Neg); Methadone, Urine Neg (Neg); Opiate, Urine Neg (Neg); Phencyclidine, Urine Neg (Neg)
--- NOTE | 2023-02-22 23:04 | CT Scan Report ---
Exam(s): CT HEAD Without Contrast EXAM: CT Head Without Intravenous Contrast CLINICAL HISTORY: Reason for exam: neuro deficit, acute stroke suspected. TECHNIQUE: Axial computed tomography images of the head/brain without intravenous contrast. CTDI is 37.42 mGy and DLP is 702.46 mGy-cm. Automated exposure control was utilized for the study. A dose lowering technique was utilized adhering to the principles of ALARA. COMPARISON: No relevant prior studies available. FINDINGS: Brain: Trace amount of periventricular white matter low density consistent with chronic small vessel disease and/or senescent changes. There is a 1.2 cm old infarct in the left side of the cerebellum. No acute large vessel infarct or intracranial hemorrhage is seen. Ventricles: Unremarkable. No ventriculomegaly. Bones/joints: Unremarkable. No acute fracture. Soft tissues: Unremarkable. Sinuses: Unremarkable as visualized. No acute sinusitis. Mastoid air cells: Unremarkable as visualized. No mastoid effusion. IMPRESSION: Trace amount of periventricular white matter low density consistent with chronic small vessel disease and/or senescent changes. There is a 1. 2 cm old infarct in the left side of the cerebellum. No acute large vessel infarct or intracranial hemorrhage is seen. Electronically signed by: True Shi MD 02/22/23 23:04 PM
--- NOTE | 2023-02-22 23:07 | CT Scan Report ---
Exam(s): CTA NECK With Contrast IV Amt: 120ml EXAM: CT Angiography Neck With Intravenous Contrast CLINICAL HISTORY: Reason for exam: neuro deficit, acute stroke suspected. TECHNIQUE: Routine carotid CT angiography protocol was performed with intravenous contrast. NASCET criteria using the distal ICAs for comparison were used for evaluation of stenoses. CTDI is 22.84 mGy and DLP is 11.42 mGy-cm. Automated exposure control was utilized for the study. A dose lowering technique was utilized adhering to the principles of ALARA. MIP reconstructed images were created and reviewed. CONTRAST: Patient received 120ml of IV contrast COMPARISON: March 22, 2020 The aortic arch is mildly calcified but nondilated. There is no aneurysm or dissection. FINDINGS: VASCULATURE: Right common carotid artery: 20% stenosis of the mid right common carotid artery. No dissection. Right internal carotid artery: Moderate to severe calcified plaque in the right carotid bulb causing a 40% stenosis of the proximal right internal carotid artery. No dissection. Right external carotid artery: Unremarkable. No occlusion. 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 Is a small amount of reconstitution of the mid to distal right vertebral artery. The left vertebral artery is widely patent. No occlusion or significant stenosis. Left common carotid artery: Unremarkable. No occlusion or significant stenosis. No dissection. Left internal carotid artery: Mixed density plaque in the left carotid bulb causing 30% stenosis of the proximal left internal carotid artery. No dissection. Left external carotid artery: Unremarkable. No occlusion. Left vertebral artery: See above. NECK: Bones/joints: Mild to moderate degenerative changes throughout the mid to lower cervical spine. No acute fracture or subluxation is seen. Soft tissues: Unremarkable. Lung apices: Clear. CAROTID STENOSIS REFERENCE USING NASCET CRITERIA: % ICA stenosis = (1 - narrowest ICA diameter/diameter of distal cervical ICA) x 100. Mild - <50% stenosis. Moderate - 50-69% stenosis. Severe - 70-94% stenosis. Near occlusion - 95-99% stenosis. Occluded - 100% stenosis. 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 Is a small amount of reconstitution of the mid to distal right vertebral artery. The left vertebral artery is widely patent. This is unchanged. 40% right and 30% left proximal internal carotid artery stenosis. Electronically signed by: True Shi MD 02/22/23 23:06 PM
--- NOTE | 2023-02-22 23:09 | CT Scan Report ---
Exam(s): CTA HEAD With Contrast IV Amt: 120ml EXAM: CT Angiography Head With Intravenous Contrast CLINICAL HISTORY: Reason for exam: neuro deficit, acute stroke suspected. TECHNIQUE: Axial computed tomographic angiography images of the head with intravenous contrast. CTDI is 13.88 mGy and DLP is 545.23 mGy-cm. Automated exposure control was utilized for the study. A dose lowering technique was utilized adhering to the principles of ALARA. MIP reconstructed images were created and reviewed. CONTRAST: Patient received 120ml of IV contrast COMPARISON: March 22, 2020 FINDINGS: Right internal carotid artery: No acute findings. Intracranial segment is patent with no significant stenosis. No aneurysm. Right anterior cerebral artery: Unremarkable. No occlusion or significant stenosis. No aneurysm. Right middle cerebral artery: Unremarkable. No occlusion or significant stenosis. No aneurysm. Right posterior cerebral artery: Normally anatomic variant of origin of the posterior cerebral arteries bilaterally. No occlusion or significant stenosis. No aneurysm. Right vertebral artery: The distal right vertebral artery is small but present. Left internal carotid artery: No acute findings. Intracranial segment is patent with no significant stenosis. No aneurysm. Left anterior cerebral artery: Unremarkable. No occlusion or significant stenosis. No aneurysm. Left middle cerebral artery: Unremarkable. No occlusion or significant stenosis. No aneurysm. Left posterior cerebral artery: See above. Left vertebral artery: Unremarkable as visualized. Basilar artery: Unremarkable. No occlusion or significant stenosis. No aneurysm. IMPRESSION: No acute findings in the arteries of the head/brain. Electronically signed by: True Shi MD 02/22/23 23:08 PM
--- NOTE | 2023-02-22 23:34 | Emergency Department Note ---
Impression & Plan Stroke-like symptoms, Alcohol intoxication, Acute confusion ED Provider Note ED Provider Note NAME: SUHA HAILE AGE:62 SEX: Male : 1960 ARRIVES VIA: EMS INFORMANT: Patient, EMS ED PROVIDER(s): Samantha Rowe DO CHIEF COMPLAINT: Strokelike symptoms HPI: This is a 62-year-old male brought in by EMS due to concern for altered mental status and possible stroke. Patient with prior history of stroke and chronic left-sided weakness. EMS reports got home at 6 PM from work and found him confused and off balance. Patient admitted to drinking 3 beers and having a shot of Bob Severo with a friend and so initially she thought he was intoxicated. She states he then seemed more confused and more off balance than normal and she was concerned for recurrent stroke. Unknown last known well. Per the EMS the stated he does take Plavix since his prior stroke. EMS denies any reported fall or injury. Patient is altered on arrival here, did not know the year or why he was here. He did not know how he got here. He states he feels very weak on the left. He does admit to a prior stroke. He den ies any falls or injury. PAST MEDICAL HISTORY:See Below PAST SURGICAL HISTORY:See Below FAMILY HISTORY:See Below SOCIAL HISTORY:See Below HOME MEDICATIONS:See Below ALLERGIES:See Below VITALS:See Below PHYSICAL EXAMINATION: GENERAL: alert, well nourished, no distress, non-toxic HEAD: nc/at EYE EXAM: normal conjunctiva, PERRL and EOM's grossly intact OROPHARYNX: no exudate, no erythema, lips, buccal mucosa, and tongue normal and mucous membranes are dry NECK: supple, no nuchal rigidity, no adenopathy, non-tender LUNGS: Clear to auscultation. Normal chest wall mechanics, no w/r/r HEART: no murmurs, S1 normal and S2 normal ABDOMEN: abdomen soft, non-tender, normo-active bowel sounds, no masses, no rebound or guarding. BACK: Back is symmetrical on inspection and there is no deformity, no midline tenderness, no CVA tenderness. SKIN: no rashes, petechiae, orbruising UPPER EXTREMITIES: upper extremities are grossly normal. FROM, nml pulses b/l. Weakness noted in the left upper extremity compared to the right, sensation intact bilaterally LOWER EXTREMITIES: No pitting edema. FROM, nml pulses b/l. Weakness noted to the left lower extremity compared to the right, sensation intact bilaterally NEURO EXAM: Normal sensorium, cranial nerves II-XII grossly intact, normal speech, no facial droop,gross sensation intact. No ataxia. Left sided weakness. NIHSS 3 Vital Signs: reviewed and remarkable Differential Diagnosis: CVA, ICH, etoh MEDICAL DECISION MAKING: This is a 62-year-old male presents emergency department due to concern for strokelike symptoms. Patient with prior history of stroke with a did also admit to alcohol earlier this evening. We could not establish a definite last known well, and we were told patient does take a blood thinner. Patient was afebrile and vital signs stable. Labs drawn and sent, IV established, EKG and chest x- ray performed at bedside and interpreted by me, patient sent urgently for CT/CTA. Upon his return to the room he was monitored on telemetry. Patient with waxing and waning mentation and left-sided weakness. We were able to find out patient does take clopidogrel daily. Patient's eventually presented to bedside additionally and she was able to confirm medications. Patient monitored here, CT/CTA reassuring. We did discuss vertebral occlusion noted. Even with while patient seemed improved and reported improvement in his left-sided weakness, she reported he was not yet at his baseline and still seemed to have waxing waning mentation. Due to concern for atypical stroke presentation and waxing and waning mentation, case discussed with the hospitalist for additional evaluation and management. Consultation(s): 9667: Discussed with Dr. Shi. ER Treatment Provided: See below 2336: Patient more lucid and answering questions appropriately now bedside. He states the left-sided weakness feels back to his baseline. now at bedside and updated on results additionally. She states the patient still has waxing and waning mentation. Diagnostics Interpreted By Me: -ECG: Normal sinus at 76, normal axis, normal intervals, no acute ST/T wave change -Cardiac Monitoring: An order was placed for continuous cardiac monitoring. The monitor shows a rate of 72 with normal sinus rhythm. -Laboratory studies: As stated above and show below. -Imaging studies: X-ray Chest: A single view study of the chest was reviewed and was negative for cardiomegaly, focal infiltrate, effusion, pulmonary edema, or wide mediastinum. Slightly increased interstitial markings at the right base Triage Nursing Note Reviewed Prior/Outside Records Reviewed -prior neurology visit Critical Care: [] Past Med/Surg History Medical History Bilateral carpal tunnel syndrome Cerebellar stroke CVA (cerebral vascular accident) No pertinent family history Surgical History H/O esophagogastroduodenoscopy H/O hernia repair History of esophagogastroduodenoscopy (EGD) Family History Mother Myocardial infarction Father Myocardial infarction Denies family history of Ovarian cancer Prostate cancer Breast cancer Colorectal cancer Stroke Social History Smoking Status: Current every day smoker Tobacco Type: Cigarettes Age Started Using Tobacco: 24; packs per day: 1; Cigarettes Per Day: 20; Second Hand Exposure: No; Do You Dip or Chew Tobacco: No; Hx Alcohol Use: Yes Alcohol type: beer Hx Substance Use: Yes Non-Prescribed Medications: Marijuana Last Used Substance Other:: usually daily Substance Use Type Other:: MJ Preferred Language: Greenlandic Communication Ability: Effective Ammonia Still Operator Required: No Beliefs That Will Affect Care: None marital status: Current Living Situation: Spouse current occupational status: employed 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 How many Children do You have: 1 Feels Safe at Home: Yes Childhood Exposure to Second-Hand Smoke: No Diet: regular Dental Care, Regularly: No Physical Activity Frequency: Daily Seatbelt Use: always Sunscreen Use: Yes Assistive Devices: None Allergies Allergies Allergy/AdvReac Type Severity Reaction Status Date / Time No Known Allergies Allergy Unknown Verified 08/31/22 08:53 Home Meds Previous Rx's Medication Instructions Recorded clopidogrel 75 mg tablet 75 mg PO QAM 30 days #90 tabs 08/05/22 lisinopril 20 mg tablet 20 mg PO QAM 30 days #90 tabs 08/05/22 oxycodone 5 mg tablet 5 mg PO Q6H PRN pain #12 tabs 08/31/22 atorvastatin 10 mg tablet 10 mg PO HS #30 tabs 02/23/23 Results & Data (ED) Vital Signs Vital Signs - 24 hr 02/22/23 21:25 02/22/23 21:27 02/22/23 22:00 Temperature 37.2 C Temperature Source Temporal Artery Scan Pulse Rate 80 75 Pulse Rate [Finger] 70 Pulse Rhythm [Finger] Regular Pulse Strength [Finger] Normal Respiratory Rate 18 15 Respiratory Effort / Characteristics Non-Labored Spontaneous Respiratory Depth Normal Normal Blood Pressure 147/80 H Blood Pressure [Right Arm] 132/67 Blood Pressure Mean 102 Blood Pressure Mean [Right Arm] 88 Pulse Oximetry 96 93 Oxygen Delivery Method Room Air Room Air Sepsis Recent Fever Within 48 Hours No Sepsis New/Unexplained Change in Mental Status N/A Sepsis Action Taken by Nursing No Action Required Laboratory Data 02/22/23 21:33 02/22/23 21:33 Lab Results 02/22/23 02/22/23 02/22/23 Range/Units 21:29 21:31 21:33 WBC 8.74 (4.8-10.8) K/ul RBC 4.22 L (4.70-6.10) M/uL Hgb 13.0 L (14.0-18.0) g/dl POC Hgb (14.0-18.0) g/dl Hct 39.2 L (42.0-52.0) % POC Hct (42-52) % MCV 92.9 (80.0-100.0) fL MCH 30.8 (25.0-34.0) pg MCHC 33.2 (32.0-36.0) g/dL RDW Std Deviation 46.6 H (36.4-46.3) fL RDW Coeff of Cipriano 13.8 (11.5-14.5) % Plt Count 270 (130-400) K/uL MPV 9.8 (9.4-12.4) fL Immature Gran % (Auto) 0.5 % Neut % (Auto) 48.4 % Lymph % (Auto) 39.8 % Alexander % (Auto) 6.5 % Eos % (Auto) 4.0 % Baso % (Auto) 0.8 % Neut # (Auto) 4.23 (1.40-6.50) K/uL Lymph # (Auto) 3.48 H (1.2-3.4) K/uL Alexander # (Auto) 0.57 (0.11-0.59) K/uL Eos # (Auto) 0.35 (0-0.50) K/uL Baso # (Auto) 0.07 (0-0.2) K/uL Immature Gran # (Auto) 0.04 (0.01-0.20) K/uL PT INR APTT PTT Ratio POC Sodium (135-144) mmol/L Sodium (136-145) mmol/L POC Potassium (3.3-5.0) mmol/L Potassium (3.5-5.1) mmol/L POC Chloride (101-112) mmol/L Chloride (98-107) mmol/L Carbon Dioxide (21-32) mmol/L POC Total CO2 (24-31) mmol/L Anion Gap (3-11) POC Anion Gap (16-25) mmol/L POC BUN (7-18) mg/dl BUN (6-23) mg/dl Creatinine (0.6-1.4) mg/dl POC Creatinine (0.6-1.3) mg/dl Est Cr Clr Drug Dosing ml/min Est GFR ( Amer) ml/min Est GFR (Non-Af Amer) ml/min BUN/Creatinine Ratio (10-20) Glucose (70-99(Fasting)) mg/dl POC Glucose 101 H (70-99) mg/dl POC Glucose (other) (70-99) mg/dl Lactate (0.4-2.0) mmol/L Calcium (8.6-10.3) mg/dl POC Ioniz Calcium [place] (1.12-1.32) mmol/l Magnesium (1.7-2.4) mg/dl Total Bilirubin (0.2-1.0) mg/dl AST (13-39) U/L ALT (7-52) U/L Alkaline Phosphatase (34-104) U/L Ammonia (18-72) umol/L Troponin I High Sens (0-20) pg/ml Total Protein (6.0-8.3) gm/dl Albumin (3.4-5.0) gm/dl Globulin (2.5-4.0) gm/dl Albumin/Globulin Ratio (0.9-2) Urine Color Urine Appearance (Clear) Urine pH (4.5-7.5) Ur Specific [place] (1.000-1.030) Urine Protein (Negative) Urine Glucose (UA) (Negative) Urine Ketones (Negative) Urine Blood (Negative) Urine Nitrite (Negative) Urine Bilirubin (Negative) Urine Urobilinogen (Negative) Ur Leukocyte Esterase (Negative) Urine Opiates Screen (Neg) Ur Methadone, Qual (Neg) Urine Barbiturates (Neg) Ur Phencyclidine (PCP) (Neg) U Amphetamin/Meth Scrn (Neg) MDMA (Ecstasy) Screen (Neg) U Benzodiazepines Scrn (Neg) Ur Cocaine Metabolite (Neg) U Marijuana (THC) Screen (Neg) Ethyl Alcohol mg/dL (<10.0) mg/dl SARS-CoV-2, RNA, NAAT NEGATIVE (NEGATIVE) 02/22/23 02/22/23 02/22/23 Range/Units 21:33 21:33 21:33 WBC (4.8-10.8) K/ul RBC (4.70-6.10) M/uL Hgb (14.0-18.0) g/dl POC Hgb (14.0-18.0) g/dl Hct (42.0-52.0) % POC Hct (42-52) % MCV (80.0-100.0) fL MCH (25.0-34.0) pg MCHC (32.0-36.0) g/dL RDW Std Deviation (36.4-46.3) fL RDW Coeff of Cipriano (11.5-14.5) % Plt Count (130-400) K/uL MPV (9.4-12.4) fL Immature Gran % (Auto) % Neut % (Auto) % Lymph % (Auto) % Alexander % (Auto) % Eos % (Auto) % Baso % (Auto) % Neut # (Auto) (1.40-6.50) K/uL Lymph # (Auto) (1.2-3.4) K/uL Alexander # (Auto) (0.11-0.59) K/uL Eos # (Auto) (0-0.50) K/uL Baso # (Auto) (0-0.2) K/uL Immature Gran # (Auto) (0.01-0.20) K/uL PT Cancelled INR Cancelled APTT Cancelled PTT Ratio Cancelled POC Sodium (135-144) mmol/L Sodium 138 (136-145) mmol/L POC Potassium (3.3-5.0) mmol/L Potassium 4.1 (3.5-5.1) mmol/L POC Chloride (101-112) mmol/L Chloride 107 (98-107) mmol/L Carbon Dioxide 22 (21-32) mmol/L POC Total CO2 (24-31) mmol/L Anion Gap 9 (3-11) POC Anion Gap (16-25) mmol/L POC BUN (7-18) mg/dl BUN 13 (6-23) mg/dl Creatinine 0.85 (0.6-1.4) mg/dl POC Creatinine (0.6-1.3) mg/dl Est Cr Clr Drug Dosing 92.7 ml/min Est GFR ( Amer) 109.8 ml/min Est GFR (Non-Af Amer) 94.7 ml/min BUN/Creatinine Ratio 15.3 (10-20) Glucose 89 (70-99(Fasting)) mg/dl POC Glucose (70-99) mg/dl POC Glucose (other) (70-99) mg/dl Lactate (0.4-2.0) mmol/L Calcium 9.2 (8.6-10.3) mg/dl POC Ioniz Calcium [place] (1.12-1.32) mmol/l Magnesium 2.1 (1.7-2.4) mg/dl Total Bilirubin 0.2 (0.2-1.0) mg/dl AST 16 (13-39) U/L ALT 10 (7-52) U/L Alkaline Phosphatase 71 (34-104) U/L Ammonia 24.0 (18-72) umol/L Troponin I High Sens 5.5 (0-20) pg/ml Total Protein 7.3 (6.0-8.3) gm/dl Albumin 4.7 (3.4-5.0) gm/dl Globulin 2.6 (2.5-4.0) gm/dl Albumin/Globulin Ratio 1.8 (0.9-2) Urine Color Urine Appearance (Clear) Urine pH (4.5-7.5) Ur Specific [place] (1.000-1.030) Urine Protein (Negative) Urine Glucose (UA) (Negative) Urine Ketones (Negative) Urine Blood (Negative) Urine Nitrite (Negative) Urine Bilirubin (Negative) Urine Urobilinogen (Negative) Ur Leukocyte Esterase (Negative) Urine Opiates Screen (Neg) Ur Methadone, Qual (Neg) Urine Barbiturates (Neg) Ur Phencyclidine (PCP) (Neg) U Amphetamin/Meth Scrn (Neg) MDMA (Ecstasy) Screen (Neg) U Benzodiazepines Scrn (Neg) Ur Cocaine Metabolite (Neg) U Marijuana (THC) Screen (Neg) Ethyl Alcohol mg/dL (<10.0) mg/dl SARS-CoV-2, RNA, NAAT (NEGATIVE) 02/22/23 02/22/23 02/22/23 Range/Units 21:33 21:33 21:41 WBC (4.8-10.8) K/ul RBC (4.70-6.10) M/uL Hgb (14.0-18.0) g/dl POC Hgb 13.6 L (14.0-18.0) g/dl Hct (42.0-52.0) % POC Hct 40 L (42-52) % MCV (80.0-100.0) fL MCH (25.0-34.0) pg MCHC (32.0-36.0) g/dL RDW Std Deviation (36.4-46.3) fL RDW Coeff of Cipriano (11.5-14.5) % Plt Count (130-400) K/uL MPV (9.4-12.4) fL Immature Gran % (Auto) % Neut % (Auto) % Lymph % (Auto) % Alexander % (Auto) % Eos % (Auto) % Baso % (Auto) % Neut # (Auto) (1.40-6.50) K/uL Lymph # (Auto) (1.2-3.4) K/uL Alexander # (Auto) (0.11-0.59) K/uL Eos # (Auto) (0-0.50) K/uL Baso # (Auto) (0-0.2) K/uL Immature Gran # (Auto) (0.01-0.20) K/uL PT INR APTT PTT Ratio POC Sodium 140 (135-144) mmol/L Sodium (136-145) mmol/L POC Potassium 4.1 (3.3-5.0) mmol/L Potassium (3.5-5.1) mmol/L POC Chloride 105 (101-112) mmol/L Chloride (98-107) mmol/L Carbon Dioxide (21-32) mmol/L POC Total CO2 23 L (24-31) mmol/L Anion Gap (3-11) POC Anion Gap 17.0 (16-25) mmol/L POC BUN 12 (7-18) mg/dl BUN (6-23) mg/dl Creatinine (0.6-1.4) mg/dl POC Creatinine 1.0 (0.6-1.3) mg/dl Est Cr Clr Drug Dosing ml/min Est GFR ( Amer) ml/min Est GFR (Non-Af Amer) ml/min BUN/Creatinine Ratio (10-20) Glucose (70-99(Fasting)) mg/dl POC Glucose (70-99) mg/dl POC Glucose (other) 89 (70-99) mg/dl Lactate 1.5 (0.4-2.0) mmol/L Calcium (8.6-10.3) mg/dl POC Ioniz Calcium [place] 1.14 (1.12-1.32) mmol/l Magnesium (1.7-2.4) mg/dl Total Bilirubin (0.2-1.0) mg/dl AST (13-39) U/L ALT (7-52) U/L Alkaline Phosphatase (34-104) U/L Ammonia (18-72) umol/L Troponin I High Sens (0-20) pg/ml Total Protein (6.0-8.3) gm/dl Albumin (3.4-5.0) gm/dl Globulin (2.5-4.0) gm/dl Albumin/Globulin Ratio (0.9-2) Urine Color Urine Appearance (Clear) Urine pH (4.5-7.5) Ur Specific [place] (1.000-1.030) Urine Protein (Negative) Urine Glucose (UA) (Negative) Urine Ketones (Negative) Urine Blood (Negative) Urine Nitrite (Negative) Urine Bilirubin (Negative) Urine Urobilinogen (Negative) Ur Leukocyte Esterase (Negative) Urine Opiates Screen (Neg) Ur Methadone, Qual (Neg) Urine Barbiturates (Neg) Ur Phencyclidine (PCP) (Neg) U Amphetamin/Meth Scrn (Neg) MDMA (Ecstasy) Screen (Neg) U Benzodiazepines Scrn (Neg) Ur Cocaine Metabolite (Neg) U Marijuana (THC) Screen (Neg) Ethyl Alcohol mg/dL 157.7 H (<10.0) mg/dl SARS-CoV-2, RNA, NAAT (NEGATIVE) 02/22/23 02/22/23 02/22/23 Range/Units 21:53 21:53 23:25 WBC (4.8-10.8) K/ul RBC (4.70-6.10) M/uL Hgb (14.0-18.0) g/dl POC Hgb (14.0-18.0) g/dl Hct (42.0-52.0) % POC Hct (42-52) % MCV (80.0-100.0) fL MCH (25.0-34.0) pg MCHC (32.0-36.0) g/dL RDW Std Deviation (36.4-46.3) fL RDW Coeff of Cipriano (11.5-14.5) % Plt Count (130-400) K/uL MPV (9.4-12.4) fL Immature Gran % (Auto) % Neut % (Auto) % Lymph % (Auto) % Alexander % (Auto) % Eos % (Auto) % Baso % (Auto) % Neut # (Auto) (1.40-6.50) K/uL Lymph # (Auto) (1.2-3.4) K/uL Alexander # (Auto) (0.11-0.59) K/uL Eos # (Auto) (0-0.50) K/uL Baso # (Auto) (0-0.2) K/uL Immature Gran # (Auto) (0.01-0.20) K/uL PT 11.3 INR 1.0 APTT 26.8 PTT Ratio 1.0 POC Sodium (135-144) mmol/L Sodium (136-145) mmol/L POC Potassium (3.3-5.0) mmol/L Potassium (3.5-5.1) mmol/L POC Chloride (101-112) mmol/L Chloride (98-107) mmol/L Carbon Dioxide (21-32) mmol/L POC Total CO2 (24-31) mmol/L Anion Gap (3-11) POC Anion Gap (16-25) mmol/L POC BUN (7-18) mg/dl BUN (6-23) mg/dl Creatinine (0.6-1.4) mg/dl POC Creatinine (0.6-1.3) mg/dl Est Cr Clr Drug Dosing ml/min Est GFR ( Amer) ml/min Est GFR (Non-Af Amer) ml/min BUN/Creatinine Ratio (10-20) Glucose (70-99(Fasting)) mg/dl POC Glucose (70-99) mg/dl POC Glucose (other) (70-99) mg/dl Lactate (0.4-2.0) mmol/L Calcium (8.6-10.3) mg/dl POC Ioniz Calcium [place] (1.12-1.32) mmol/l Magnesium (1.7-2.4) mg/dl Total Bilirubin (0.2-1.0) mg/dl AST (13-39) U/L ALT (7-52) U/L Alkaline Phosphatase (34-104) U/L Ammonia (18-72) umol/L Troponin I High Sens (0-20) pg/ml Total Protein (6.0-8.3) gm/dl Albumin (3.4-5.0) gm/dl Globulin (2.5-4.0) gm/dl Albumin/Globulin Ratio (0.9-2) Urine Color Yellow Urine Appearance Clear (Clear) Urine pH 5.5 (4.5-7.5) Ur Specific [place] 1.009 (1.000-1.030) Urine Protein Negative (Negative) Urine Glucose (UA) Negative (Negative) Urine Ketones Negative (Negative) Urine Blood Negative (Negative) Urine Nitrite Negative (Negative) Urine Bilirubin Negative (Negative) Urine Urobilinogen Negative (Negative) Ur Leukocyte Esterase Negative (Negative) Urine Opiates Screen Neg (Neg) Ur Methadone, Qual Neg (Neg) Urine Barbiturates Neg (Neg) Ur Phencyclidine (PCP) Neg (Neg) U Amphetamin/Meth Scrn Neg (Neg) MDMA (Ecstasy) Screen Neg (Neg) U Benzodiazepines Scrn Neg (Neg) Ur Cocaine Metabolite Neg (Neg) U Marijuana (THC) Screen Neg (Neg) Ethyl Alcohol mg/dL (<10.0) mg/dl SARS-CoV-2, RNA, NAAT (NEGATIVE) 02/22/23 Range/Units 23:26 WBC (4.8-10.8) K/ul RBC (4.70-6.10) M/uL Hgb (14.0-18.0) g/dl POC Hgb (14.0-18.0) g/dl Hct (42.0-52.0) % POC Hct (42-52) % MCV (80.0-100.0) fL MCH (25.0-34.0) pg MCHC (32.0-36.0) g/dL RDW Std Deviation (36.4-46.3) fL RDW Coeff of Cipriano (11.5-14.5) % Plt Count (130-400) K/uL MPV (9.4-12.4) fL Immature Gran % (Auto) % Neut % (Auto) % Lymph % (Auto) % Alexander % (Auto) % Eos % (Auto) % Baso % (Auto) % Neut # (Auto) (1.40-6.50) K/uL Lymph # (Auto) (1.2-3.4) K/uL Alexander # (Auto) (0.11-0.59) K/uL Eos # (Auto) (0-0.50) K/uL Baso # (Auto) (0-0.2) K/uL Immature Gran # (Auto) (0.01-0.20) K/uL PT INR APTT PTT Ratio POC Sodium (135-144) mmol/L Sodium (136-145) mmol/L POC Potassium (3.3-5.0) mmol/L Potassium (3.5-5.1) mmol/L POC Chloride (101-112) mmol/L Chloride (98-107) mmol/L Carbon Dioxide (21-32) mmol/L POC Total CO2 (24-31) mmol/L Anion Gap (3-11) POC Anion Gap (16-25) mmol/L POC BUN (7-18) mg/dl BUN (6-23) mg/dl Creatinine (0.6-1.4) mg/dl POC Creatinine (0.6-1.3) mg/dl Est Cr Clr Drug Dosing ml/min Est GFR ( Amer) ml/min Est GFR (Non-Af Amer) ml/min BUN/Creatinine Ratio (10-20) Glucose (70-99(Fasting)) mg/dl POC Glucose (70-99) mg/dl POC Glucose (other) (70-99) mg/dl Lactate (0.4-2.0) mmol/L Calcium (8.6-10.3) mg/dl POC Ioniz Calcium [place] (1.12-1.32) mmol/l Magnesium (1.7-2.4) mg/dl Total Bilirubin (0.2-1.0) mg/dl AST (13-39) U/L ALT (7-52) U/L Alkaline Phosphatase (34-104) U/L Ammonia (18-72) umol/L Troponin I High Sens 10.6 D (0-20) pg/ml Total Protein (6.0-8.3) gm/dl Albumin (3.4-5.0) gm/dl Globulin (2.5-4.0) gm/dl Albumin/Globulin Ratio (0.9-2) Urine Color Urine Appearance (Clear) Urine pH (4.5-7.5) Ur Specific [place] (1.000-1.030) Urine Protein (Negative) Urine Glucose (UA) (Negative) Urine Ketones (Negative) Urine Blood (Negative) Urine Nitrite (Negative) Urine Bilirubin (Negative) Urine Urobilinogen (Negative) Ur Leukocyte Esterase (Negative) Urine Opiates Screen (Neg) Ur Methadone, Qual (Neg) Urine Barbiturates (Neg) Ur Phencyclidine (PCP) (Neg) U Amphetamin/Meth Scrn (Neg) MDMA (Ecstasy) Screen (Neg) U Benzodiazepines Scrn (Neg) Ur Cocaine Metabolite (Neg) U Marijuana (THC) Screen (Neg) Ethyl Alcohol mg/dL (<10.0) mg/dl SARS-CoV-2, RNA, NAAT (NEGATIVE) Administered Medications Discontinued Medications Atorvastatin Calcium (Atorvastatin 10 Mg Tab) 10 mg PO [facility] Stop: 03/25/23 08:59 Last Admin: 02/23/23 09:53 Dose: 10 mg Documented By: SIMIN Clopidogrel Bisulfate (Clopidogrel Bisulfate 75 Mg Tab) 75 mg PO [facility] Stop: 03/25/23 08:59 Last Admin: 02/23/23 09:17 Dose: 75 mg Documented By: Rainer Gadobutrol (Gadobutrol 65ml Vial) 8 ml IV ONCE ONE Stop: 02/23/23 03:32 Last Admin: 02/23/23 03:32 Dose: 8 ml Documented By: PAULO Sodium Chloride (Nss 1000ml) 1,000 mls @ 125 mls/hr IV .Q8H [facility] Stop: 03/24/23 21:29 Last Infusion: 02/23/23 01:33 Dose: 0 mls/hr Documented By: Admin: 02/22/23 21:50 Dose: 125 mls/hr Documented By: DICK Ioversol (Optiray 320 125ml) 120 ml IV ONCE ONE Stop: 02/22/23 21:41 Last Admin: 02/22/23 21:40 Dose: 120 ml Documented By: TATY Lisinopril (Lisinopril 20 Mg Tab) 20 mg PO QAM [facility] Stop: 03/25/23 08:59 Last Admin: 02/23/23 09:54 Dose: 20 mg Documented By: SIMIN Imaging Data Radiologist's Impression: Head CT 02/22/23 21:28 Exam(s): CT HEAD Without Contrast EXAM: CT Head Without Intravenous Contrast CLINICAL HISTORY: Reason for exam: neuro deficit, acute stroke suspected. TECHNIQUE: Axial computed tomography images of the head/brain without intravenous contrast. CTDI is 37.42 mGy and DLP is 702.46 mGy-cm. Automated exposure control was utilized for the study. A dose lowering technique was utilized adhering to the principles of ALARA. COMPARISON: No relevant prior studies available. FINDINGS: Brain: Trace amount of periventricular white matter low density consistent with chronic small vessel disease and/or senescent changes. There is a 1.2 cm old infarct in the left side of the cerebellum. No acute large vessel infarct or intracranial hemorrhage is seen. Ventricles: Unremarkable. No ventriculomegaly. Bones/joints: Unremarkable. No acute fracture. Soft tissues: Unremarkable. Sinuses: Unremarkable as visualized. No acute sinusitis. Mastoid air cells: Unremarkable as visualized. No mastoid effusion. IMPRESSION: Trace amount of periventricular white matter low density consistent with chronic small vessel disease and/or senescent changes. There is a 1. 2 cm old infarct in the left side of the cerebellum. No acute large vessel infarct or intracranial hemorrhage is seen. Electronically signed by: True Shi MD 02/22/23 23:04 PM Head CTA 02/22/23 21:28 Exam(s): CTA HEAD With Contrast IV Amt: 120ml EXAM: CT Angiography Head With Intravenous Contrast CLINICAL HISTORY: Reason for exam: neuro deficit, acute stroke suspected. TECHNIQUE: Axial computed tomographic angiography images of the head with intravenous contrast. CTDI is 13.88 mGy and DLP is 545.23 mGy-cm. Automated exposure control was utilized for the study. A dose lowering technique was utilized adhering to the principles of ALARA. MIP reconstructed images were created and reviewed. CONTRAST: Patient received 120ml of IV contrast COMPARISON: March 22, 2020 FINDINGS: Right internal carotid artery: No acute findings. Intracranial segment is patent with no significant stenosis. No aneurysm. Right anterior cerebral artery: Unremarkable. No occlusion or significant stenosis. No aneurysm. Right middle cerebral artery: Unremarkable. No occlusion or significant stenosis. No aneurysm. Right posterior cerebral artery: Normally anatomic variant of origin of the posterior cerebral arteries bilaterally. No occlusion or significant stenosis. No aneurysm. Right vertebral artery: The distal right vertebral artery is small but present. Left internal carotid artery: No acute findings. Intracranial segment is patent with no significant stenosis. No aneurysm. Left anterior cerebral artery: Unremarkable. No occlusion or significant stenosis. No aneurysm. Left middle cerebral artery: Unremarkable. No occlusion or significant stenosis. No aneurysm. Left posterior cerebral artery: See above. Left vertebral artery: Unremarkable as visualized. Basilar artery: Unremarkable. No occlusion or significant stenosis. No aneurysm. IMPRESSION: No acute findings in the arteries of the head/brain. Electronically signed by: True Shi MD 02/22/23 23:08 PM Neck CTA 02/22/23 21:28 Exam(s): CTA NECK With Contrast IV Amt: 120ml EXAM: CT Angiography Neck With Intravenous Contrast CLINICAL HISTORY: Reason for exam: neuro deficit, acute stroke suspected. TECHNIQUE: Routine carotid CT angiography protocol was performed with intravenous contrast. NASCET criteria using the distal ICAs for comparison were used for evaluation of stenoses. CTDI is 22.84 mGy and DLP is 11.42 mGy-cm. Automated exposure control was utilized for the study. A dose lowering technique was utilized adhering to the principles of ALARA. MIP reconstructed images were created and reviewed. CONTRAST: Patient received 120ml of IV contrast COMPARISON: March 22, 2020 The aortic arch is mildly calcified but nondilated. There is no aneurysm or dissection. FINDINGS: VASCULATURE: Right common carotid artery: 20% stenosis of the mid right common carotid artery. No dissection. Right internal carotid artery: Moderate to severe calcified plaque in the right carotid bulb causing a 40% stenosis of the proximal right internal carotid artery. No dissection. Right external carotid artery: Unremarkable. No occlusion. 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 Is a small amount of reconstitution of the mid to distal right vertebral artery. The left vertebral artery is widely patent. No occlusion or significant stenosis. Left common carotid artery: Unremarkable. No occlusion or significant stenosis. No dissection. Left internal carotid artery: Mixed density plaque in the left carotid bulb causing 30% stenosis of the proximal left internal carotid artery. No dissection. Left external carotid artery: Unremarkable. No occlusion. Left vertebral artery: See above. NECK: Bones/joints: Mild to moderate degenerative changes throughout the mid to lower cervical spine. No acute fracture or subluxation is seen. Soft tissues: Unremarkable. Lung apices: Clear. CAROTID STENOSIS REFERENCE USING NASCET CRITERIA: % ICA stenosis = (1 - narrowest ICA diameter/diameter of distal cervical ICA) x 100. Mild - <50% stenosis. Moderate - 50-69% stenosis. Severe - 70-94% stenosis. Near occlusion - 95-99% stenosis. Occluded - 100% stenosis. 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 Is a small amount of reconstitution of the mid to distal right vertebral artery. The left vertebral artery is widely patent. This is unchanged. 40% right and 30% left proximal internal carotid artery stenosis. Electronically signed by: True Shi MD 02/22/23 23:06 PM Discharge Plan Visit Data Chief Complaint: Altered Mental Status Stated Complaint: ALTERED, HX OF STROKE ED Provider: Samantha Rowe Discharge Problem: Stroke-like symptoms, Alcohol intoxication, Acute confusion Patient Disposition: Admitted As Inpatient Discharge Instructions Interventions: ED Discharge Assessment Last Done: 02/23/23 01:08
--- NOTE | 2023-02-23 00:20 | History & Physical Report ---
Date of Service February 23, 2023 Assessment & Plan (1) Stroke-like symptoms: Plan: 62yo male presenting with confusion, reported left sided motor weakness and slurred speech which occurred earlier this evening, now resolved. Patient with some degree of amnesia of the events prior to arrival. He did have several drinks and marijuana as well. ?CVA/TIA ?seizure ?transient global amnesia ?acute intoxication + recrudescence from prior CVA -Observation to medical with telemetry -Check MRI brain -Neuro checks, NIHSS per protocol -Continue Plavix -Check HgbA1C and Lipid panel -PT/OT evaluation appreciated (2) Hypertension: Plan: Chronic. Mildly elevated blood pressure -No acute CVA noted on MRI -Can resume Lisinopril -Monitor BP (3) Dyslipidemia: Plan: Patient has tried several statins in the past - was on high dose Atorvastatin after his stroke which led to joint pain. He was on Crestor as well but this caused muscle pain so he self-DCd this medication as well. He has declined fenofibrate medication as well. Currently not on any medication for cholesterol -Would benefit from some statin therapy - will resume low dose Atorvastatin 10mg po daily. Increase as tolerated History of Present Illness Chief Complaint: confusion, left sided weakness Primary Care Provider: DAYTON Beal Liam Thayer is a 62 yo male with history of prior CVA with mild residual left sided weakness presenting with confusion and worsening left sided weakness. Patient recalls going to his neighbor's this afternoon around 16:00. He had 3 regular beers and a shot of Jaegermeister. He also smoked one homegrown joint and then went home. Patient remembers feeling slightly lightheaded but otherwise no complaints. He then remembers waking up in the hospital several h ours later. He is uncertain if he fainted. Denies fever, chills, chest pain, palpitations, cough, SOB. Denies abdominal pain/nausea/vomiting/diarrhea. Denies ALEGRE or visual changes. Reports that his left side is now completely back to normal and does not recall when it was weak. Patient apparently mowed the lawn during the time he can't remember. His came home around 18:00 and patient was acting confused with left sided weakness. At first she thought he was simply intoxicated. However, his mental status continued to decline and his left sided weakness became more pronounced so they came to the ER. In the ER he was found to have an EtOH level of 157.7. Brain imaging as below to include CT head and CTA head and neck with no acute findings. Allergies Allergy/AdvReac Type Severity Reaction Status Date / Time No Known Allergies Allergy Unknown Verified 08/31/22 08:53 Home Medications Medication Instructions Recorded Confirmed Type clopidogrel 75 mg tablet 75 mg PO QAM 30 days #90 tabs 08/05/22 08/31/22 Rx lisinopril 20 mg tablet 20 mg PO QAM 30 days #90 tabs 08/05/22 08/31/22 Rx oxycodone 5 mg tablet 5 mg PO Q6H PRN pain #12 tabs 08/31/22 Rx Past Med/Surg History Medical History Bilateral carpal tunnel syndrome Cerebellar stroke CVA (cerebral vascular accident) No pertinent family history Surgical History H/O esophagogastroduodenoscopy H/O hernia repair History of esophagogastroduodenoscopy (EGD) Family History Mother Myocardial infarction Father Myocardial infarction Denies family history of Ovarian cancer Prostate cancer Breast cancer Colorectal cancer Stroke Social History Smoking Status: Current every day smoker Tobacco Type: Cigarettes Age Started Using Tobacco: 24; packs per day: 1; Cigarettes Per Day: 20; Second Hand Exposure: No; Do You Dip or Chew Tobacco: No; Tobacco Cessation Education Requested by Patient: No Hx Alcohol Use: Yes Alcohol type: beer Hx Substance Use: Yes Non-Prescribed Medications: Marijuana Last Used Substance Other:: usually daily Substance Use Type Other:: MJ Preferred Language: Lao Communication Ability: Effective Media Theorist And Author Of Required: No Beliefs That Will Affect Care: None marital status: Current Living Situation: Spouse current occupational status: employed 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 How many Children do You have: 1 Other Information That Helps Us Care for You: No Feels Safe at Home: Yes Safety Concerns: Feels Safe At This Time Childhood Exposure to Second-Hand Smoke: No Diet: regular Dental Care, Regularly: No Physical Activity Frequency: Daily Seatbelt Use: always Sunscreen Use: Yes Assistive Devices: None Review of Systems Review of Systems: All systems reviewed & are unremarkable except as noted in HPI & below Physical Exam Physical Exam: General: patient resting comfortably, NAD, non-toxic in appearance, AA&O x 4, smells of alcohol Skin: warm, dry, intact, no rashes or lesions HEENT: NC/AT, PERRL, EOMI, anicteric sclera, conjunctiva without injection, ex ternal ear normal to inspection and nontender, nares patent, moist mucus membranes, dentition intact, no oropharyngeal lesions, neck supple, trachea midline, no LAD, no thyromegaly, no JVD Heart: +S1/S2, regular, no m/r/g Lungs: equal air entry bilaterally, no rales/rhonchi/wheezes Abd: +BS, soft, NT/ND, no masses/organomegaly/ascites Ext: warm, 2+ pulses in UE/LE bilaterally, no clubbing/cyanosis or edema Neuro: nonfocal, patient AA&O x 4, speech slightly slurred which he reports as baseline, no facial droop, moving all extremities on command, mildly diminished in LLE 4/5 and LUE 4+/5, RUE and RLE 5/5 Results & Data Results & Data Vital Signs (Past 12 Hours) Vital Signs Temp Pulse Pulse Resp BP BP Pulse Ox 02/22/23 22:00 70 15 132/67 93 02/22/23 21:27 37.2 C 75 18 147/80 H 96 02/22/23 21:25 80 O2 Del Method 02/22/23 22:00 Room Air 02/22/23 21:27 Room Air 02/22/23 21:25 Laboratory Results Laboratory Results WBC 8.74 K/ul (4.8-10.8) 02/22/23 21:33 RBC 4.22 M/uL (4.70-6.10) L 02/22/23 21:33 Hgb 13.0 g/dl (14.0-18.0) L 02/22/23 21:33 POC Hgb 13.6 g/dl (14.0-18.0) L 02/22/23 21:41 Hct 39.2 % (42.0-52.0) L 02/22/23 21:33 POC Hct 40 % (42-52) L 02/22/23 21:41 MCV 92.9 fL (80.0-100.0) 02/22/23 21: MCH 30.8 pg (25.0-34.0) 02/22/23 21: MCHC 33.2 g/dL (32.0-36.0) 02/22/23: RDW Std Deviation 46.6 fL (36.4-46.3) H 02/22/23 21: RDW Coeff of Cipriano 13.8 % (11.5-14.5) 02/22/23: Plt Count 270 K/uL (130-400) 02/22/23: MPV 9.8 fL (9.4-12.4) 02/22/23 21: Immature Gran % (Auto) 0.5 % 02/22/23 21: Neut % (Auto) 48.4 % 02/22/23 21: Lymph % (Auto) 39.8 % 02/22/23 21:33 [place] % (Auto) 6.5 % 02/22/23 21: Eos % (Auto) 4.0 % 02/22/23: Baso % (Auto) 0.8 % 02/22/23: Neut # (Auto) 4.23 K/uL (1.40-6.50) 02/22/23 21: Lymph # (Auto) 3.48 K/uL (1.2-3.4) H 02/22/23 21: [place] # (Auto) 0.57 K/uL (0.11-0.59) 02/22/23 21: Eos # (Auto) 0.35 K/uL (0-0.50) 02/22/23: Baso # (Auto) 0.07 K/uL (0-0.2) 02/22/23: Immature Gran # (Auto) 0.04 K/uL (0.01-0.20) 02/22/23 21: PT 11.3 Seconds (9.0-12.0) 02/22/23 23:25 INR 1.0 (0.9-1.1) 07/11/23 23:25 APTT 26.8 Seconds (21.0-31.0) 02/22/23 23:25 PTT Ratio 1.0 02/22/23 23:25 POC Sodium 140 mmol/L (135-144) 02/22/23 21:41 Sodium 138 mmol/L (136-145) 02/22/23 21:33 POC Potassium 4.1 mmol/L (3.3-5.0) 02/22/23 21:41 Potassium 4.1 mmol/L (3.5-5.1) 02/22/23 21:33 POC Chloride 105 mmol/L (101-112) 02/22/23 21:41 Chloride 107 mmol/L (98-107) 02/22/23 21:33 Carbon Dioxide 22 mmol/L (21-32) 02/22/23 21:33 POC Total CO2 23 mmol/L (24-31) L 02/22/23 21:41 Anion Gap 9 (3-11) 02/22/23 21:33 POC Anion Gap 17.0 mmol/L (16-25) 02/22/23 21:41 POC BUN 12 mg/dl (7-18) 02/22/23 21:41 BUN 13 mg/dl (6-23) 02/22/23 21:33 Creatinine 0.85 mg/dl (0.6-1.4) 02/22/23 21:33 POC Creatinine 1.0 mg/dl (0.6-1.3) 02/22/23 21:41 Est Cr Clr Drug Dosing 92.7 ml/min 02/22/23 21:33 Est GFR ( Amer) 109.8 ml/min 02/22/23 21:33 Est GFR (Non-Af Amer) 94.7 ml/min 02/22/23 21:33 BUN/Creatinine Ratio 15.3 (10-20) 02/22/23 21:33 Glucose 89 mg/dl (70-99(Fasting)) 02/22/23 21:33 POC Glucose 101 mg/dl (70-99) H 02/22/23 21:29 POC Glucose (other) 89 mg/dl (70-99) 02/22/23 21:41 Lactate 1.5 mmol/L (0.4-2.0) 02/22/23 21:33 Calcium 9.2 mg/dl (8.6-10.3) 02/22/23 21:33 POC Ioniz Calcium [place] 1.14 mmol/l (1.12-1.32) 02/22/23 21:41 Magnesium 2.1 mg/dl (1.7-2.4) 02/22/23 21:33 Total Bilirubin 0.2 mg/dl (0.2-1.0) 02/22/23 21:33 AST 16 U/L (13-39) 02/22/23 21:33 ALT 10 U/L (7-52) 02/22/23 21:33 Alkaline Phosphatase 71 U/L (34-104) 02/22/23 21:33 Ammonia 24.0 umol/L (18-72) 02/22/23 21:33 Troponin I High Sens 10.6 pg/ml (0-20) D 02/22/23 23:26 Total Protein 7.3 gm/dl (6.0-8.3) 02/22/23 21:33 Albumin 4.7 gm/dl (3.4-5.0) 02/22/23 21:33 Globulin 2.6 gm/dl (2.5-4.0) 02/22/23 21:33 Albumin/Globulin Ratio 1.8 (0.9-2) 02/22/23 21:33 Urine Color Yellow 02/22/23 21:53 Urine Appearance Clear (Clear) 02/22/23 21:53 Urine pH 5.5 (4.5-7.5) 02/22/23 21:53 Ur Specific [place] 1.009 (1.000-1.030) 02/22/23 21:53 Urine Protein Negative (Negative) 02/22/23 21:53 Urine Glucose (UA) Negative (Negative) 02/22/23 21:53 Urine Ketones Negative (Negative) 02/22/23 21:53 Urine Blood Negative (Negative) 02/22/23 21:53 Urine Nitrite Negative (Negative) 02/22/23 21:53 Urine Bilirubin Negative (Negative) 02/22/23 21:53 Urine Urobilinogen Negative (Negative) 02/22/23 21:53 Ur Leukocyte Esterase Negative (Negative) 02/22/23 21:53 Urine Opiates Screen Neg (Neg) 02/22/23 21:53 Ur Methadone, Qual Neg (Neg) 02/22/23 21:53 Urine Barbiturates Neg (Neg) 02/22/23 21:53 Ur Phencyclidine (PCP) Neg (Neg) 02/22/23 21:53 U Amphetamin/Meth Scrn Neg (Neg) 02/22/23 21:53 MDMA (Ecstasy) Screen Neg (Neg) 02/22/23 21:53 U Benzodiazepines Scrn Neg (Neg) 02/22/23 21:53 Ur Cocaine Metabolite Neg (Neg) 02/22/23 21:53 U Marijuana (THC) Screen Neg (Neg) 02/22/23 21:53 Ethyl Alcohol mg/dL 157.7 mg/dl (<10.0) H 02/22/23 21:33 SARS-CoV-2, RNA, NAAT NEGATIVE (NEGATIVE) 02/22/23 21:[address] 02/22/23 21:28 Exam(s): CT HEAD Without Contrast EXAM: CT Head Without Intravenous Contrast CLINICAL HISTORY: Reason for exam: neuro deficit, acute stroke suspected. TECHNIQUE: Axial computed tomography images of the head/brain without intravenous contrast. CTDI is 37.42 mGy and DLP is 702.46 mGy-cm. Automated exposure control was utilized for the study. A dose lowering technique was utilized adhering to the principles of ALARA. COMPARISON: No relevant prior studies available. FINDINGS: Brain: Trace amount of periventricular white matter low density consistent with chronic small vessel disease and/or senescent changes. There is a 1.2 cm old infarct in the left side of the cerebellum. No acute large vessel infarct or intracranial hemorrhage is seen. Ventricles: Unremarkable. No ventriculomegaly. Bones/joints: Unremarkable. No acute fracture. Soft tissues: Unremarkable. Sinuses: Unremarkable as visualized. No acute sinusitis. Mastoid air cells: Unremarkable as visualized. No mastoid effusion. IMPRESSION: Trace amount of periventricular white matter low density consistent with chronic small vessel disease and/or senescent changes. There is a 1. 2 cm old infarct in the left side of the cerebellum. No acute large vessel infarct or intracranial hemorrhage is seen. Electronically signed by: True Shi MD 02/22/23 23:04 PM Head CTA 02/22/23 21:28 Exam(s): CTA HEAD With Contrast IV Amt: 120ml EXAM: CT Angiography Head With Intravenous Contrast CLINICAL HISTORY: Reason for exam: neuro deficit, acute stroke suspected. TECHNIQUE: Axial computed tomographic angiography images of the head with intravenous contrast. CTDI is 13.88 mGy and DLP is 545.23 mGy-cm. Automated exposure control was utilized for the study. A dose lowering technique was utilized adhering to the principles of ALARA. MIP reconstructed images were created and reviewed. CONTRAST: Patient received 120ml of IV contrast COMPARISON: March 22, 2020 FINDINGS: Right internal carotid artery: No acute findings. Intracranial segment is patent with no significant stenosis. No aneurysm. Right anterior cerebral artery: Unremarkable. No occlusion or significant stenosis. No aneurysm. Right middle cerebral artery: Unremarkable. No occlusion or significant stenosis. No aneurysm. Right posterior cerebral artery: Normally anatomic variant of origin of the posterior cerebral arteries bilaterally. No occlusion or significant stenosis. No aneurysm. Right vertebral artery: The distal right vertebral artery is small but present. Left internal carotid artery: No acute findings. Intracranial segment is patent with no significant stenosis. No aneurysm. Left anterior cerebral artery: Unremarkable. No occlusion or significant stenosis. No aneurysm. Left middle cerebral artery: Unremarkable. No occlusion or significant stenosis. No aneurysm. Left posterior cerebral artery: See above. Left vertebral artery: Unremarkable as visualized. Basilar artery: Unremarkable. No occlusion or significant stenosis. No aneurysm. IMPRESSION: No acute findings in the arteries of the head/brain. Electronically signed by: True Shi MD 02/22/23 23:08 PM Neck CTA 02/22/23 21:28 Exam(s): CTA NECK With Contrast IV Amt: 120ml EXAM: CT Angiography Neck With Intravenous Contrast CLINICAL HISTORY: Reason for exam: neuro deficit, acute stroke suspected. TECHNIQUE: Routine carotid CT angiography protocol was performed with intravenous contrast. NASCET criteria using the distal ICAs for comparison were used for evaluation of stenoses. CTDI is 22.84 mGy and DLP is 11.42 mGy-cm. Automated exposure control was utilized for the study. A dose lowering technique was utilized adhering to the principles of ALARA. MIP reconstructed images were created and reviewed. CONTRAST: Patient received 120ml of IV contrast COMPARISON: March 22, 2020 The aortic arch is mildly calcified but nondilated. There is no aneurysm or dissection. FINDINGS: VASCULATURE: Right common carotid artery: 20% stenosis of the mid right common carotid artery. No dissection. Right internal carotid artery: Moderate to severe calcified plaque in the right carotid bulb causing a 40% stenosis of the proximal right internal carotid artery. No dissection. Right external carotid artery: Unremarkable. No occlusion. 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 Is a small amount of reconstitution of the mid to distal right vertebral artery. The left vertebral artery is widely patent. No occlusion or significant stenosis. Left common carotid artery: Unremarkable. No occlusion or significant stenosis. No dissection. Left internal carotid artery: Mixed density plaque in the left carotid bulb causing 30% stenosis of the proximal left internal carotid artery. No dissection. Left external carotid artery: Unremarkable. No occlusion. Left vertebral artery: See above. NECK: Bones/joints: Mild to moderate degenerative changes throughout the mid to lower cervical spine. No acute fracture or subluxation is seen. Soft tissues: Unremarkable. Lung apices: Clear. CAROTID STENOSIS REFERENCE USING NASCET CRITERIA: % ICA stenosis = (1 - narrowest ICA diameter/diameter of distal cervical ICA) x 100. Mild - <50% stenosis. Moderate - 50-69% stenosis. Severe - 70-94% stenosis. Near occlusion - 95-99% stenosis. Occluded - 100% stenosis. 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 Is a small amount of reconstitution of the mid to distal right vertebral artery. The left vertebral artery is widely patent. This is unchanged. 40% right and 30% left proximal internal carotid artery stenosis. Electronically signed by: True Shi MD 02/22/23 23:06 PM Brain MRI 02/23/23 01:24 Exam(s): MRI HEAD W/WO Contrast IV Amt: 8cc gadavist EXAM: MR Head Without and With Intravenous Contrast CLINICAL HISTORY: Reason for exam: left sided weakness. TECHNIQUE: Magnetic resonance images of the head/brain without and with intravenous contrast in multiple planes. CONTRAST: Patient received 8cc Gadavist of IV contrast COMPARISON: March 22, [address] head from February 22, 2023 FINDINGS: Brain: Mild periventricular white matter T2 hyperintensity consistent with chronic small vessel disease and/or senescent changes. There is an approximately 11 mm old infarct in the left cerebellum. No areas of diffusion restriction are seen to indicate acute stroke. No intracranial hemorrhage is identified. Ventricles: Unremarkable. No ventriculomegaly. Bones/joints: Unremarkable. Soft tissues: Unremarkable. No areas of abnormal contrast enhancement are identified. Sinuses: Unremarkable as visualized. No acute sinusitis. Mastoid air cells: Unremarkable as visualized. No mastoid effusion. Orbits: Unremarkable as visualized. IMPRESSION: Mild periventricular white matter T2 hyperintensity consistent with chronic small vessel disease and/or senescent changes. There is an approximately 11 mm old infarct in the left cerebellum. No areas of diffusion restriction are seen to indicate acute stroke. Electronically signed by: True Shi MD 02/23/23 04:30 AM PG Care Time/CCT Total # of Minutes Spent Total Time Spent with Patient: Total time spent is greater than 50% in coordination of care (as documented) at patient's floor/unit and/or counseling patient: Coding Level of Care Code 02887 INT INP/OBS CARE 2/55MIN Diagnoses Stroke-like symptoms R29.90 Hypertension I10 Dyslipidemia E78.5
[2023-02-23 00:21] LABS: Partial Thromboplastin Time 26.8 Seconds (21.0-31.0); Prothrombin Time 11.3 Seconds (9.0-12.0)
[2023-02-23] MEDS ORDERED: ACETAMINOPHEN 325 MG TAB PO PRN (01:24)
[2023-02-23] MEDS ORDERED: oxyCODONE HCL IR 5 MG TAB (IMMEDIATE RELEASE) PO PRN (01:24)
[2023-02-23] MEDS ORDERED: ONDANSETRON INJ 2 MG/ML 2 ML VIAL IV PRN (01:24)
[2023-02-23] MEDS ORDERED: GADOBUTROL 65ML VIAL IV ONE (03:31)
--- NOTE | 2023-02-23 04:31 | Magnetic Resonance Report ---
Exam(s): MRI HEAD W/WO Contrast IV Amt: 8cc gadavist EXAM: MR Head Without and With Intravenous Contrast CLINICAL HISTORY: Reason for exam: left sided weakness. TECHNIQUE: Magnetic resonance images of the head/brain without and with intravenous contrast in multiple planes. CONTRAST: Patient received 8cc Gadavist of IV contrast COMPARISON: March 22, [address] head from February 22, 2023 FINDINGS: Brain: Mild periventricular white matter T2 hyperintensity consistent with chronic small vessel disease and/or senescent changes. There is an approximately 11 mm old infarct in the left cerebellum. No areas of diffusion restriction are seen to indicate acute stroke. No intracranial hemorrhage is identified. Ventricles: Unremarkable. No ventriculomegaly. Bones/joints: Unremarkable. Soft tissues: Unremarkable. No areas of abnormal contrast enhancement are identified. Sinuses: Unremarkable as visualized. No acute sinusitis. Mastoid air cells: Unremarkable as visualized. No mastoid effusion. Orbits: Unremarkable as visualized. IMPRESSION: Mild periventricular white matter T2 hyperintensity consistent with chronic small vessel disease and/or senescent changes. There is an approximately 11 mm old infarct in the left cerebellum. No areas of diffusion restriction are seen to indicate acute stroke. Electronically signed by: True Shi MD 02/23/23 04:30 AM
--- NOTE | 2023-02-23 07:07 | XRay Report ---
XR chest 1V portable HISTORY: neuro deficit, acute stroke suspected COMPARISON: Chest 03/22/2020. FINDINGS: No pneumothorax. No pleural effusions. The cardiac silhouette is mildly enlarged. There is mild central pulmonary vascular congestion without overt edema. Right basilar linear density favors s ubsegmental atelectasis. A pneumonitis could also have a similar appearance in the appropriate clinic al setting. No acute fractures identified. IMPRESSION: 1. Cardiomegaly with mild congestive change. 2. A right basilar linear density is new from the prior study. This favors subsegmental atelectasis. A pneumonia could also have a similar appearance in the appropriate clinical setting. ACT 112: Negative or not required by law. Electronically signed by: Raji Cheng M.D. 02/23/2023 7:06 AM
[2023-02-23 07:36] LABS: Basophils # (auto) 0.08 K/uL (0-0.2); Basophils % (auto) 1.1 %; Eosinophils # (auto) 0.33 K/uL (0-0.50); Eosinophils % (auto) 4.5 %; Hematocrit (blood only) 40.4 % (42.0-52.0); Hemoglobin 13.2 g/dl (14.0-18.0); Immature Granulocytes # (auto) 0.04 K/uL (0.01-0.20); Immature Granulocytes % (auto) 0.5 %; Lymphocytes # (auto) 2.47 K/uL (1.2-3.4); Lymphocytes % (auto) 33.4 %; Mean Corpuscular Hemoglobin 30.8 pg (25.0-34.0); Mean Corpuscular Hgb Conc 32.7 g/dL (32.0-36.0); Mean Corpuscular Volume 94.2 fL (80.0-100.0); Mean Platelet Volume 9.7 fL (9.4-12.4); Monocytes % (auto) 8.1 %; Neutrophils # (auto) 3.88 K/uL (1.40-6.50); Neutrophils % (auto) 52.4 %; Platelet Count 272 K/uL (130-400); RDW Coefficient of Variation 13.7 % (11.5-14.5); RDW Standard Deviation 46.9 fL (36.4-46.3); Red Blood Count 4.29 M/uL (4.70-6.10)
[2023-02-23 07:52] LABS: BUN Creatinine Ratio 15.7 (10-20); Calcium 9.2 mg/dl (8.6-10.3); Chol HDL Ratio 4.9 (0-5); Creatinine Clr Calc Pharmacy 94.9 ml/min; Est GFR (African American) 110.8 ml/min; Est GFR (Non-African American) 95.6 ml/min; Potassium 4.2 mmol/L (3.5-5.1)
--- NOTE | 2023-02-23 08:20 | Hospitalist Progress Note ---
Date of Service February 23, 2023 Assessment & Plan (1) Stroke-like symptoms: Plan: 62yo male presenting with confusion, reported left sided motor weakness and slurred speech which occurred earlier this evening, now resolved. Patient with some degree of amnesia of the events prior to arrival. He did have several drinks and marijuana as well. ?CVA/TIA ?seizure ?transient global amnesia ?acute intoxication + recrudescence from prior CVA -Observation to medical with telemetry -Check MRI brain -Neuro checks, NIHSS per protocol -Continue Plavix -Check HgbA1C and Lipid panel -PT/OT evaluation appreciated (2) Hypertension: Plan: Chronic. Mildly elevated blood pressure -No acute CVA noted on MRI -Can resume Lisinopril -Monitor BP (3) Dyslipidemia: Plan: Patient has tried several statins in the past - was on high dose Atorvastatin after his stroke which led to joint pain. He was on Crestor as well but this caused muscle pain so he self-DCd this medication as well. He has declined fenofibrate medication as well. Currently not on any medication for cholesterol -Would benefit from some statin therapy - will resume low dose Atorvastatin 10mg po daily. Increase as tolerated Admission and Anticipated Discharge Date Admission Date: February 23, 2023 Results & Data Results & Data Vital Signs (Past 12 Hours) Vital Signs Temp Pulse Pulse Resp BP BP Pulse Ox 02/23/23 08:04 02/23/23 07:51 36.6 C 55 L 20 127/66 95 02/23/23 06:02 64 02/23/23 02:21 67 02/23/23 01:25 02/23/23 01:25 36.4 C L 64 19 166/82 H 95 02/23/23 01:00 67 16 95 02/23/23 00:50 67 16 95 02/23/23 00:40 64 18 96 02/23/23 00:31 69 17 95 02/23/23 00:20 77 12 96 02/23/23 00:10 64 17 94 02/23/23 00:01 65 17 96 02/23/23 00:01 123/63 02/23/23 00:00 65 12 97 02/22/23 23:50 69 17 95 02/22/23 23:40 65 15 96 02/22/23 23:30 67 16 97 02/22/23 23:30 125/72 02/22/23 23:20 68 19 95 02/22/23 23:10 83 22 97 02/22/23 23:00 69 20 95 02/22/23 23:00 126/57 L 02/22/23 22:50 71 14 95 02/22/23 22:40 70 16 96 02/22/23 22:30 72 14 93 02/22/23 22:30 128/68 02/22/23 22:20 65 14 95 02/22/23 22:10 72 17 93 02/22/23 22:00 69 16 93 02/22/23 22:00 132/67 02/22/23 21:50 81 18 96 02/22/23 21:45 96 02/22/23 21:30 75 17 95 02/22/23 21:30 131/76 02/22/23 21:23 80 15 95 02/22/23 22:00 70 15 132/67 93 02/22/23 21:27 37.2 C 75 18 147/80 H 96 02/22/23 21:25 80 O2 Del Method 02/23/23 08:04 Room Air 02/23/23 07:51 Room Air 02/23/23 06:02 02/23/23 02:21 02/23/23 01:25 Room Air 02/23/23 01:25 Room Air 02/23/23 01:00 02/23/23 00:50 02/23/23 00:40 02/23/23 00:31 02/23/23 00:20 02/23/23 00:10 02/23/23 00:01 02/23/23 00:01 02/23/23 00:00 02/22/23 23:50 02/22/23 23:40 02/22/23 23:30 02/22/23 23:30 02/22/23 23:20 02/22/23 23:10 02/22/23 23:00 02/22/23 23:00 02/22/23 22:50 02/22/23 22:40 02/22/23 22:30 02/22/23 22:30 02/22/23 22:20 02/22/23 22:10 02/22/23 22:00 02/22/23 22:00 02/22/23 21:50 02/22/23 21:45 02/22/23 21:30 02/22/23 21:30 02/22/23 21:23 02/22/23 22:00 Room Air 02/22/23 21:27 Room Air 02/22/23 21:25 Laboratory Results 02/23/23 02/23/23 02/23/23 Range/Units 06:33 06:33 06:33 WBC 7.40 (4.8-10.8) K/ul RBC 4.29 L (4.70-6.10) M/uL Hgb 13.2 L (14.0-18.0) g/dl POC Hgb (14.0-18.0) g/dl Hct 40.4 L (42.0-52.0) % POC Hct (42-52) % MCV 94.2 (80.0-100.0) fL MCH 30.8 (25.0-34.0) pg MCHC 32.7 (32.0-36.0) g/dL RDW Std Deviation 46.9 H (36.4-46.3) fL RDW Coeff of Cipriano 13.7 (11.5-14.5) % Plt Count 272 (130-400) K/uL MPV 9.7 (9.4-12.4) fL Immature Gran % (Auto) 0.5 % Neut % (Auto) 52.4 % Lymph % (Auto) 33.4 % [place] % (Auto) 8.1 % Eos % (Auto) 4.5 % Baso % (Auto) 1.1 % Neut # (Auto) 3.88 (1.40-6.50) K/uL Lymph # (Auto) 2.47 (1.2-3.4) K/uL [place] # (Auto) 0.60 H (0.11-0.59) K/uL Eos # (Auto) 0.33 (0-0.50) K/uL Baso # (Auto) 0.08 (0-0.2) K/uL Immature Gran # (Auto) 0.04 (0.01-0.20) K/uL PT INR APTT PTT Ratio POC Sodium (135-144) mmol/L Sodium 137 (136-145) mmol/L POC Potassium (3.3-5.0) mmol/L Potassium 4.2 (3.5-5.1) mmol/L POC Chloride (101-112) mmol/L Chloride 106 (98-107) mmol/L Carbon Dioxide 26 (21-32) mmol/L POC Total CO2 (24-31) mmol/L Anion Gap 5 (3-11) POC Anion Gap (16-25) mmol/L POC BUN (7-18) mg/dl BUN 13 (6-23) mg/dl Creatinine 0.83 (0.6-1.4) mg/dl POC Creatinine (0.6-1.3) mg/dl Est Cr Clr Drug Dosing 94.9 ml/min Est GFR ( Amer) 110.8 ml/min Est GFR (Non-Af Amer) 95.6 ml/min BUN/Creatinine Ratio 15.7 (10-20) Glucose 82 (70-99(Fasting)) mg/dl POC Glucose (70-99) mg/dl POC Glucose (other) (70-99) mg/dl Estimat Average Glucose Pending Hemoglobin A1c Pending Lactate (0.4-2.0) mmol/L Calcium 9.2 (8.6-10.3) mg/dl POC Ioniz Calcium [place] (1.12-1.32) mmol/l Magnesium (1.7-2.4) mg/dl Total Bilirubin (0.2-1.0) mg/dl AST (13-39) U/L ALT (7-52) U/L Alkaline Phosphatase (34-104) U/L Ammonia (18-72) umol/L Troponin I High Sens (0-20) pg/ml Total Protein (6.0-8.3) gm/dl Albumin (3.4-5.0) gm/dl Globulin (2.5-4.0) gm/dl Albumin/Globulin Ratio (0.9-2) Triglycerides 135 (0-150) mg/dl Cholesterol 190 (0-200) mg/dl LDL Cholesterol, Calc 124 mg/dl VLDL Cholesterol, Calc 27 (0-30) mg/dl HDL Cholesterol 39 mg/dl Cholesterol/HDL Ratio 4.9 (0-5) Urine Color Urine Appearance (Clear) Urine pH (4.5-7.5) Ur Specific [place] (1.000-1.030) Urine Protein (Negative) Urine Glucose (UA) (Negative) Urine Ketones (Negative) Urine Blood (Negative) Urine Nitrite (Negative) Urine Bilirubin (Negative) Urine Urobilinogen (Negative) Ur Leukocyte Esterase (Negative) Urine Opiates Screen (Neg) Ur Methadone, Qual (Neg) Urine Barbiturates (Neg) Ur Phencyclidine (PCP) (Neg) U Amphetamin/Meth Scrn (Neg) MDMA (Ecstasy) Screen (Neg) U Benzodiazepines Scrn (Neg) Ur Cocaine Metabolite (Neg) U Marijuana (THC) Screen (Neg) Ethyl Alcohol mg/dL (<10.0) mg/dl SARS-CoV-2, RNA, NAAT (NEGATIVE) 02/22/23 02/22/23 02/22/23 Range/Units 23:26 23:25 21:53 WBC (4.8-10.8) K/ul RBC (4.70-6.10) M/uL Hgb (14.0-18.0) g/dl POC Hgb (14.0-18.0) g/dl Hct (42.0-52.0) % POC Hct (42-52) % MCV (80.0-100.0) fL MCH (25.0-34.0) pg MCHC (32.0-36.0) g/dL RDW Std Deviation (36.4-46.3) fL RDW Coeff of Cipriano (11.5-14.5) % Plt Count (130-400) K/uL MPV (9.4-12.4) fL Immature Gran % (Auto) % Neut % (Auto) % Lymph % (Auto) % [place] % (Auto) % Eos % (Auto) % Baso % (Auto) % Neut # (Auto) (1.40-6.50) K/uL Lymph # (Auto) (1.2-3.4) K/uL [place] # (Auto) (0.11-0.59) K/uL Eos # (Auto) (0-0.50) K/uL Baso # (Auto) (0-0.2) K/uL Immature Gran # (Auto) (0.01-0.20) K/uL PT 11.3 INR 1.0 APTT 26.8 PTT Ratio 1.0 POC Sodium (135-144) mmol/L Sodium (136-145) mmol/L POC Potassium (3.3-5.0) mmol/L Potassium (3.5-5.1) mmol/L POC Chloride (101-112) mmol/L Chloride (98-107) mmol/L Carbon Dioxide (21-32) mmol/L POC Total CO2 (24-31) mmol/L Anion Gap (3-11) POC Anion Gap (16-25) mmol/L POC BUN (7-18) mg/dl BUN (6-23) mg/dl Creatinine (0.6-1.4) mg/dl POC Creatinine (0.6-1.3) mg/dl Est Cr Clr Drug Dosing ml/min Est GFR ( Amer) ml/min Est GFR (Non-Af Amer) ml/min BUN/Creatinine Ratio (10-20) Glucose (70-99(Fasting)) mg/dl POC Glucose (70-99) mg/dl POC Glucose (other) (70-99) mg/dl Estimat Average Glucose Hemoglobin A1c Lactate (0.4-2.0) mmol/L Calcium (8.6-10.3) mg/dl POC Ioniz Calcium [place] (1.12-1.32) mmol/l Magnesium (1.7-2.4) mg/dl Total Bilirubin (0.2-1.0) mg/dl AST (13-39) U/L ALT (7-52) U/L Alkaline Phosphatase (34-104) U/L Ammonia (18-72) umol/L Troponin I High Sens 10.6 D (0-20) pg/ml Total Protein (6.0-8.3) gm/dl Albumin (3.4-5.0) gm/dl Globulin (2.5-4.0) gm/dl Albumin/Globulin Ratio (0.9-2) Triglycerides (0-150) mg/dl Cholesterol (0-200) mg/dl LDL Cholesterol, Calc mg/dl VLDL Cholesterol, Calc (0-30) mg/dl HDL Cholesterol mg/dl Cholesterol/HDL Ratio (0-5) Urine Color Urine Appearance (Clear) Urine pH (4.5-7.5) Ur Specific [place] (1.000-1.030) Urine Protein (Negative) Urine Glucose (UA) (Negative) Urine Ketones (Negative) Urine Blood (Negative) Urine Nitrite (Negative) Urine Bilirubin (Negative) Urine Urobilinogen (Negative) Ur Leukocyte Esterase (Negative) Urine Opiates Screen Neg (Neg) Ur Methadone, Qual Neg (Neg) Urine Barbiturates Neg (Neg) Ur Phencyclidine (PCP) Neg (Neg) U Amphetamin/Meth Scrn Neg (Neg) MDMA (Ecstasy) Screen Neg (Neg) U Benzodiazepines Scrn Neg (Neg) Ur Cocaine Metabolite Neg (Neg) U Marijuana (THC) Screen Neg (Neg) Ethyl Alcohol mg/dL (<10.0) mg/dl SARS-CoV-2, RNA, NAAT (NEGATIVE) 02/22/23 02/22/23 02/22/23 Range/Units 21:53 21:41 21:33 WBC (4.8-10.8) K/ul RBC (4.70-6.10) M/uL Hgb (14.0-18.0) g/dl POC Hgb 13.6 L (14.0-18.0) g/dl Hct (42.0-52.0) % POC Hct 40 L (42-52) % MCV (80.0-100.0) fL MCH (25.0-34.0) pg MCHC (32.0-36.0) g/dL RDW Std Deviation (36.4-46.3) fL RDW Coeff of Cipriano (11.5-14.5) % Plt Count (130-400) K/uL MPV (9.4-12.4) fL Immature Gran % (Auto) % Neut % (Auto) % Lymph % (Auto) % [place] % (Auto) % Eos % (Auto) % Baso % (Auto) % Neut # (Auto) (1.40-6.50) K/uL Lymph # (Auto) (1.2-3.4) K/uL [place] # (Auto) (0.11-0.59) K/uL Eos # (Auto) (0-0.50) K/uL Baso # (Auto) (0-0.2) K/uL Immature Gran # (Auto) (0.01-0.20) K/uL PT INR APTT PTT Ratio POC Sodium 140 (135-144) mmol/L Sodium (136-145) mmol/L POC Potassium 4.1 (3.3-5.0) mmol/L Potassium (3.5-5.1) mmol/L POC Chloride 105 (101-112) mmol/L Chloride (98-107) mmol/L Carbon Dioxide (21-32) mmol/L POC Total CO2 23 L (24-31) mmol/L Anion Gap (3-11) POC Anion Gap 17.0 (16-25) mmol/L POC BUN 12 (7-18) mg/dl BUN (6-23) mg/dl Creatinine (0.6-1.4) mg/dl POC Creatinine 1.0 (0.6-1.3) mg/dl Est Cr Clr Drug Dosing ml/min Est GFR ( Amer) ml/min Est GFR (Non-Af Amer) ml/min BUN/Creatinine Ratio (10-20) Glucose (70-99(Fasting)) mg/dl POC Glucose (70-99) mg/dl POC Glucose (other) 89 (70-99) mg/dl Estimat Average Glucose Hemoglobin A1c Lactate 1.5 (0.4-2.0) mmol/L Calcium (8.6-10.3) mg/dl POC Ioniz Calcium [place] 1.14 (1.12-1.32) mmol/l Magnesium (1.7-2.4) mg/dl Total Bilirubin (0.2-1.0) mg/dl AST (13-39) U/L ALT (7-52) U/L Alkaline Phosphatase (34-104) U/L Ammonia (18-72) umol/L Troponin I High Sens (0-20) pg/ml Total Protein (6.0-8.3) gm/dl Albumin (3.4-5.0) gm/dl Globulin (2.5-4.0) gm/dl Albumin/Globulin Ratio (0.9-2) Triglycerides (0-150) mg/dl Cholesterol (0-200) mg/dl LDL Cholesterol, Calc mg/dl VLDL Cholesterol, Calc (0-30) mg/dl HDL Cholesterol mg/dl Cholesterol/HDL Ratio (0-5) Urine Color Yellow Urine Appearance Clear (Clear) Urine pH 5.5 (4.5-7.5) Ur Specific [place] 1.009 (1.000-1.030) Urine Protein Negative (Negative) Urine Glucose (UA) Negative (Negative) Urine Ketones Negative (Negative) Urine Blood Negative (Negative) Urine Nitrite Negative (Negative) Urine Bilirubin Negative (Negative) Urine Urobilinogen Negative (Negative) Ur Leukocyte Esterase Negative (Negative) Urine Opiates Screen (Neg) Ur Methadone, Qual (Neg) Urine Barbiturates (Neg) Ur Phencyclidine (PCP) (Neg) U Amphetamin/Meth Scrn (Neg) MDMA (Ecstasy) Screen (Neg) U Benzodiazepines Scrn (Neg) Ur Cocaine Metabolite (Neg) U Marijuana (THC) Screen (Neg) Ethyl Alcohol mg/dL (<10.0) mg/dl SARS-CoV-2, RNA, NAAT (NEGATIVE) 02/22/23 02/22/23 02/22/23 Range/Units 21:33 21:33 21:33 WBC (4.8-10.8) K/ul RBC (4.70-6.10) M/uL Hgb (14.0-18.0) g/dl POC Hgb (14.0-18.0) g/dl Hct (42.0-52.0) % POC Hct (42-52) % MCV (80.0-100.0) fL MCH (25.0-34.0) pg MCHC (32.0-36.0) g/dL RDW Std Deviation (36.4-46.3) fL RDW Coeff of Cipriano (11.5-14.5) % Plt Count (130-400) K/uL MPV (9.4-12.4) fL Immature Gran % (Auto) % Neut % (Auto) % Lymph % (Auto) % [place] % (Auto) % Eos % (Auto) % Baso % (Auto) % Neut # (Auto) (1.40-6.50) K/uL Lymph # (Auto) (1.2-3.4) K/uL [place] # (Auto) (0.11-0.59) K/uL Eos # (Auto) (0-0.50) K/uL Baso # (Auto) (0-0.2) K/uL Immature Gran # (Auto) (0.01-0.20) K/uL PT INR APTT PTT Ratio POC Sodium (135-144) mmol/L Sodium 138 (136-145) mmol/L POC Potassium (3.3-5.0) mmol/L Potassium 4.1 (3.5-5.1) mmol/L POC Chloride (101-112) mmol/L Chloride 107 (98-107) mmol/L Carbon Dioxide 22 (21-32) mmol/L POC Total CO2 (24-31) mmol/L Anion Gap 9 (3-11) POC Anion Gap (16-25) mmol/L POC BUN (7-18) mg/dl BUN 13 (6-23) mg/dl Creatinine 0.85 (0.6-1.4) mg/dl POC Creatinine (0.6-1.3) mg/dl Est Cr Clr Drug Dosing 92.7 ml/min Est GFR ( Amer) 109.8 ml/min Est GFR (Non-Af Amer) 94.7 ml/min BUN/Creatinine Ratio 15.3 (10-20) Glucose 89 (70-99(Fasting)) mg/dl POC Glucose (70-99) mg/dl POC Glucose (other) (70-99) mg/dl Estimat Average Glucose Hemoglobin A1c Lactate (0.4-2.0) mmol/L Calcium 9.2 (8.6-10.3) mg/dl POC Ioniz Calcium [place] (1.12-1.32) mmol/l Magnesium 2.1 (1.7-2.4) mg/dl Total Bilirubin 0.2 (0.2-1.0) mg/dl AST 16 (13-39) U/L ALT 10 (7-52) U/L Alkaline Phosphatase 71 (34-104) U/L Ammonia 24.0 (18-72) umol/L Troponin I High Sens 5.5 (0-20) pg/ml Total Protein 7.3 (6.0-8.3) gm/dl Albumin 4.7 (3.4-5.0) gm/dl Globulin 2.6 (2.5-4.0) gm/dl Albumin/Globulin Ratio 1.8 (0.9-2) Triglycerides (0-150) mg/dl Cholesterol (0-200) mg/dl LDL Cholesterol, Calc mg/dl VLDL Cholesterol, Calc (0-30) mg/dl HDL Cholesterol mg/dl Cholesterol/HDL Ratio (0-5) Urine Color Urine Appearance (Clear) Urine pH (4.5-7.5) Ur Specific [place] (1.000-1.030) Urine Protein (Negative) Urine Glucose (UA) (Negative) Urine Ketones (Negative) Urine Blood (Negative) Urine Nitrite (Negative) Urine Bilirubin (Negative) Urine Urobilinogen (Negative) Ur Leukocyte Esterase (Negative) Urine Opiates Screen (Neg) Ur Methadone, Qual (Neg) Urine Barbiturates (Neg) Ur Phencyclidine (PCP) (Neg) U Amphetamin/Meth Scrn (Neg) MDMA (Ecstasy) Screen (Neg) U Benzodiazepines Scrn (Neg) Ur Cocaine Metabolite (Neg) U Marijuana (THC) Screen (Neg) Ethyl Alcohol mg/dL 157.7 H (<10.0) mg/dl SARS-CoV-2, RNA, NAAT (NEGATIVE) 02/22/23 02/22/23 02/22/23 Range/Units 21:33 21:33 21:31 WBC 8.74 (4.8-10.8) K/ul RBC 4.22 L (4.70-6.10) M/uL Hgb 13.0 L (14.0-18.0) g/dl POC Hgb (14.0-18.0) g/dl Hct 39.2 L (42.0-52.0) % POC Hct (42-52) % MCV 92.9 (80.0-100.0) fL MCH 30.8 (25.0-34.0) pg MCHC 33.2 (32.0-36.0) g/dL RDW Std Deviation 46.6 H (36.4-46.3) fL RDW Coeff of Cipriano 13.8 (11.5-14.5) % Plt Count 270 (130-400) K/uL MPV 9.8 (9.4-12.4) fL Immature Gran % (Auto) 0.5 % Neut % (Auto) 48.4 % Lymph % (Auto) 39.8 % [place] % (Auto) 6.5 % Eos % (Auto) 4.0 % Baso % (Auto) 0.8 % Neut # (Auto) 4.23 (1.40-6.50) K/uL Lymph # (Auto) 3.48 H (1.2-3.4) K/uL [place] # (Auto) 0.57 (0.11-0.59) K/uL Eos # (Auto) 0.35 (0-0.50) K/uL Baso # (Auto) 0.07 (0-0.2) K/uL Immature Gran # (Auto) 0.04 (0.01-0.20) K/uL PT Cancelled INR Cancelled APTT Cancelled PTT Ratio Cancelled POC Sodium (135-144) mmol/L Sodium (136-145) mmol/L POC Potassium (3.3-5.0) mmol/L Potassium (3.5-5.1) mmol/L POC Chloride (101-112) mmol/L Chloride (98-107) mmol/L Carbon Dioxide (21-32) mmol/L POC Total CO2 (24-31) mmol/L Anion Gap (3-11) POC Anion Gap (16-25) mmol/L POC BUN (7-18) mg/dl BUN (6-23) mg/dl Creatinine (0.6-1.4) mg/dl POC Creatinine (0.6-1.3) mg/dl Est Cr Clr Drug Dosing ml/min Est GFR ( Amer) ml/min Est GFR (Non-Af Amer) ml/min BUN/Creatinine Ratio (10-20) Glucose (70-99(Fasting)) mg/dl POC Glucose (70-99) mg/dl POC Glucose (other) (70-99) mg/dl Estimat Average Glucose Hemoglobin A1c Lactate (0.4-2.0) mmol/L Calcium (8.6-10.3) mg/dl POC Ioniz Calcium [place] (1.12-1.32) mmol/l Magnesium (1.7-2.4) mg/dl Total Bilirubin (0.2-1.0) mg/dl AST (13-39) U/L ALT (7-52) U/L Alkaline Phosphatase (34-104) U/L Ammonia (18-72) umol/L Troponin I High Sens (0-20) pg/ml Total Protein (6.0-8.3) gm/dl Albumin (3.4-5.0) gm/dl Globulin (2.5-4.0) gm/dl Albumin/Globulin Ratio (0.9-2) Triglycerides (0-150) mg/dl Cholesterol (0-200) mg/dl LDL Cholesterol, Calc mg/dl VLDL Cholesterol, Calc (0-30) mg/dl HDL Cholesterol mg/dl Cholesterol/HDL Ratio (0-5) Urine Color Urine Appearance (Clear) Urine pH (4.5-7.5) Ur Specific [place] (1.000-1.030) Urine Protein (Negative) Urine Glucose (UA) (Negative) Urine Ketones (Negative) Urine Blood (Negative) Urine Nitrite (Negative) Urine Bilirubin (Negative) Urine Urobilinogen (Negative) Ur Leukocyte Esterase (Negative) Urine Opiates Screen (Neg) Ur Methadone, Qual (Neg) Urine Barbiturates (Neg) Ur Phencyclidine (PCP) (Neg) U Amphetamin/Meth Scrn (Neg) MDMA (Ecstasy) Screen (Neg) U Benzodiazepines Scrn (Neg) Ur Cocaine Metabolite (Neg) U Marijuana (THC) Screen (Neg) Ethyl Alcohol mg/dL (<10.0) mg/dl SARS-CoV-2, RNA, NAAT NEGATIVE (NEGATIVE) 02/22/23 Range/Units 21:29 WBC (4.8-10.8) K/ul RBC (4.70-6.10) M/uL Hgb (14.0-18.0) g/dl POC Hgb (14.0-18.0) g/dl Hct (42.0-52.0) % POC Hct (42-52) % MCV (80.0-100.0) fL MCH (25.0-34.0) pg MCHC (32.0-36.0) g/dL RDW Std Deviation (36.4-46.3) fL RDW Coeff of Cipriano (11.5-14.5) % Plt Count (130-400) K/uL MPV (9.4-12.4) fL Immature Gran % (Auto) % Neut % (Auto) % Lymph % (Auto) % [place] % (Auto) % Eos % (Auto) % Baso % (Auto) % Neut # (Auto) (1.40-6.50) K/uL Lymph # (Auto) (1.2-3.4) K/uL [place] # (Auto) (0.11-0.59) K/uL Eos # (Auto) (0-0.50) K/uL Baso # (Auto) (0-0.2) K/uL Immature Gran # (Auto) (0.01-0.20) K/uL PT INR APTT PTT Ratio POC Sodium (135-144) mmol/L Sodium (136-145) mmol/L POC Potassium (3.3-5.0) mmol/L Potassium (3.5-5.1) mmol/L POC Chloride (101-112) mmol/L Chloride (98-107) mmol/L Carbon Dioxide (21-32) mmol/L POC Total CO2 (24-31) mmol/L Anion Gap (3-11) POC Anion Gap (16-25) mmol/L POC BUN (7-18) mg/dl BUN (6-23) mg/dl Creatinine (0.6-1.4) mg/dl POC Creatinine (0.6-1.3) mg/dl Est Cr Clr Drug Dosing ml/min Est GFR ( Amer) ml/min Est GFR (Non-Af Amer) ml/min BUN/Creatinine Ratio (10-20) Glucose (70-99(Fasting)) mg/dl POC Glucose 101 H (70-99) mg/dl POC Glucose (other) (70-99) mg/dl Estimat Average Glucose Hemoglobin A1c Lactate (0.4-2.0) mmol/L Calcium (8.6-10.3) mg/dl POC Ioniz Calcium [place] (1.12-1.32) mmol/l Magnesium (1.7-2.4) mg/dl Total Bilirubin (0.2-1.0) mg/dl AST (13-39) U/L ALT (7-52) U/L Alkaline Phosphatase (34-104) U/L Ammonia (18-72) umol/L Troponin I High Sens (0-20) pg/ml Total Protein (6.0-8.3) gm/dl Albumin (3.4-5.0) gm/dl Globulin (2.5-4.0) gm/dl Albumin/Globulin Ratio (0.9-2) Triglycerides (0-150) mg/dl Cholesterol (0-200) mg/dl LDL Cholesterol, Calc mg/dl VLDL Cholesterol, Calc (0-30) mg/dl HDL Cholesterol mg/dl Cholesterol/HDL Ratio (0-5) Urine Color Urine Appearance (Clear) Urine pH (4.5-7.5) Ur Specific [place] (1.000-1.030) Urine Protein (Negative) Urine Glucose (UA) (Negative) Urine Ketones (Negative) Urine Blood (Negative) Urine Nitrite (Negative) Urine Bilirubin (Negative) Urine Urobilinogen (Negative) Ur Leukocyte Esterase (Negative) Urine Opiates Screen (Neg) Ur Methadone, Qual (Neg) Urine Barbiturates (Neg) Ur Phencyclidine (PCP) (Neg) U Amphetamin/Meth Scrn (Neg) MDMA (Ecstasy) Screen (Neg) U Benzodiazepines Scrn (Neg) Ur Cocaine Metabolite (Neg) U Marijuana (THC) Screen (Neg) Ethyl Alcohol mg/dL (<10.0) mg/dl SARS-CoV-2, RNA, NAAT (NEGATIVE) PG Care Time/CCT Total # of Minutes Spent Total Time Spent with Patient: Total time spent is greater than 50% in coordination of care (as documented) at patient's floor/unit and/or counseling patient: Coding Diagnoses Stroke-like symptoms R29.90 Hypertension I10 Dyslipidemia E78.5
[2023-02-23] MEDS ORDERED: lisinopril 20 MG TAB PO SCH (09:00)
[2023-02-23] MEDS ORDERED: CLOPIDOGREL BISULFATE 75 MG TAB PO SCH (09:00)
[2023-02-23] MEDS ORDERED: ATORVASTATIN 10 MG TAB PO SCH (09:00)
[2023-02-23 09:27] LABS: Estimated Average Glucose 134 mg/dl; Hemoglobin A1C 6.3 % (4.5-5.6)
--- NOTE | 2023-02-23 14:13 | Electrocardiogram Report ---
Test Reason : Blood Pressure : / mmHG Vent. Rate : 076 BPM Atrial Rate : 076 BPM P-R Int : 140 ms QRS Dur : 088 ms QT Int : 368 ms P-R-T Axes : 047 066 028 degrees QTc Int : 414 ms Normal sinus rhythm Normal ECG When compared with ECG of 31-AUG-2022 10:29, No significant change was found Confirmed by Mehrdad Ling ([id number]) on 02/23/2023 2:13:21 PM Referred By: REFERRED SELF Confirmed By:Adan Ling
--- NOTE | 2023-02-23 14:37 | Discharge Summary ---
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 Patient recalls going to his neighbor's this afternoon around 16:00. He had 3 regular beers and a shot of Jaegermeister. He also smoked one homegrown joint and then went home. Patient remembers feeling slightly lightheaded but otherwise no complaints. He then remembers waking up in the hospital several hours later. He is uncertain if he fainted. Denies fever, chills, chest pain, palpitations, cough, SOB. Denies abdominal pain/nausea/vomiting/diarrhea. Denies ALEGRE or visual changes. Reports that his left side is now completely back to normal and does not recall when it was weak. Patient apparently mowed the lawn during the time he can't remember. His came home around 18:00 and patient was acting confused with left sided weakness. At first she thought he was simply intoxicated. However, his mental status continued to decline and his left sided weakness became more pronounced so they came to the ER. In the ER he was found to have an EtOH level of 157.7. Brain imaging as below to include CT head and CTA head and neck with no acute findings. Admission Exam Per Admitting Provider General: patient resting comfortably, NAD, non-toxic in appearance, AA&O x 4, smells of alcohol Skin: warm, dry, intact, no rashes or lesions HEENT: NC/AT, PERRL, EOMI, anicteric sclera, conjunctiva without injection, external ear normal to inspection and nontender, nares patent, moist mucus membranes, dentition intact, no oropharyngeal lesions, neck supple, trachea midline, no LAD, no thyromegaly, no JVD Heart: +S1/S2, regular, no m/r/g Lungs: equal air entry bilaterally, no rales/rhonchi/wheezes Abd: +BS, soft, NT/ND, no masses/organomegaly/ascites Ext: warm, 2+ pulses in UE/LE bilaterally, no clubbing/cyanosis or edema Neuro: nonfocal, patient AA&O x 4, speech slightly slurred which he reports as baseline, no facial droop, moving all extremities on command, mildly diminished in LLE 4/5 and LUE 4+/5, RUE and RLE 5/5 Principal Diagnosis AMS, Intoxication Discharge Exam General: WD/WN male sitting up at side of bed, at bedside, NAD, witnessed ambulating in hallway without issue earlier today HEENT: head normocephalic, atraumatic, mmm, trachea midline Resp: CTA, on room air, no distress CV: RRR, no significant m/r/g, no pitting edema/calf tenderness GI: +BS, soft/NT : no delgado MSK/Neuro: CN intact, no focal deficit, speech clear, following commands, strength equal bilaterally gait steady, witnessed ambulating in the halls Psych: AOx3, pleasant and cooperative, anxious for discharge home Discharge Data Allergies Allergy/AdvReac Type Severity Reaction Status Date / Time No Known Allergies Allergy Unknown Verified 08/31/22 08:53 Consultations 02/22/23 23:55 ED Decision to Admit Stat Ordered Studies Chest X-Ray 02/22/23 21:28 XR chest 1V portable HISTORY: neuro deficit, acute stroke suspected COMPARISON: Chest 03/22/2020. FINDINGS: No pneumothorax. No pleural effusions. The cardiac silhouette is mildly enlarged. There is mild central pulmonary vascular congestion without overt edema. Right basilar linear density favors subsegmental atelectasis. A pneumonitis could also have a similar appearance in the appropriate clinical setting. No acute fractures identified. IMPRESSION: 1. Cardiomegaly with mild congestive change. 2. A right basilar linear density is new from the prior study. This favors subsegmental atelectasis. A pneumonia could also have a similar appearance in the appropriate clinical setting. ACT 112: Negative or not required by law. Electronically signed by: Raji Cheng M.D. 02/23/2023 7:[address] 02/22/23 21:28 Exam(s): CT HEAD Without Contrast EXAM: CT Head Without Intravenous Contrast CLINICAL HISTORY: Reason for exam: neuro deficit, acute stroke suspected. TECHNIQUE: Axial computed tomography images of the head/brain without intravenous contrast. CTDI is 37.42 mGy and DLP is 702.46 mGy-cm. Automated exposure control was utilized for the study. A dose lowering technique was utilized adhering to the principles of ALARA. COMPARISON: No relevant prior studies available. FINDINGS: Brain: Trace amount of periventricular white matter low density consistent with chronic small vessel disease and/or senescent changes. There is a 1.2 cm old infarct in the left side of the cerebellum. No acute large vessel infarct or intracranial hemorrhage is seen. Ventricles: Unremarkable. No ventriculomegaly. Bones/joints: Unremarkable. No acute fracture. Soft tissues: Unremarkable. Sinuses: Unremarkable as visualized. No acute sinusitis. Mastoid air cells: Unremarkable as visualized. No mastoid effusion. IMPRESSION: Trace amount of periventricular white matter low density consistent with chronic small vessel disease and/or senescent changes. There is a 1. 2 cm old infarct in the left side of the cerebellum. No acute large vessel infarct or intracranial hemorrhage is seen. Electronically signed by: True Shi MD 02/22/23 23:04 PM Head CTA 02/22/23 21:28 Exam(s): CTA HEAD With Contrast IV Amt: 120ml EXAM: CT Angiography Head With Intravenous Contrast CLINICAL HISTORY: Reason for exam: neuro deficit, acute stroke suspected. TECHNIQUE: Axial computed tomographic angiography images of the head with intravenous contrast. CTDI is 13.88 mGy and DLP is 545.23 mGy-cm. Automated exposure control was utilized for the study. A dose lowering technique was utilized adhering to the principles of ALARA. MIP reconstructed images were created and reviewed. CONTRAST: Patient received 120ml of IV contrast COMPARISON: March 22, 2020 FINDINGS: Right internal carotid artery: No acute findings. Intracranial segment is patent with no significant stenosis. No aneurysm. Right anterior cerebral artery: Unremarkable. No occlusion or significant stenosis. No aneurysm. Right middle cerebral artery: Unremarkable. No occlusion or significant stenosis. No aneurysm. Right posterior cerebral artery: Normally anatomic variant of origin of the posterior cerebral arteries bilaterally. No occlusion or significant stenosis. No aneurysm. Right vertebral artery: The distal right vertebral artery is small but present. Left internal carotid artery: No acute findings. Intracranial segment is patent with no significant stenosis. No aneurysm. Left anterior cerebral artery: Unremarkable. No occlusion or significant stenosis. No aneurysm. Left middle cerebral artery: Unremarkable. No occlusion or significant stenosis. No aneurysm. Left posterior cerebral artery: See above. Left vertebral artery: Unremarkable as visualized. Basilar artery: Unremarkable. No occlusion or significant stenosis. No aneurysm. IMPRESSION: No acute findings in the arteries of the head/brain. Electronically signed by: True Shi MD 02/22/23 23:08 PM Neck CTA 02/22/23 21:28 Exam(s): CTA NECK With Contrast IV Amt: 120ml EXAM: CT Angiography Neck With Intravenous Contrast CLINICAL HISTORY: Reason for exam: neuro deficit, acute stroke suspected. TECHNIQUE: Routine carotid CT angiography protocol was performed with intravenous contrast. NASCET criteria using the distal ICAs for comparison were used for evaluation of stenoses. CTDI is 22.84 mGy and DLP is 11.42 mGy-cm. Automated exposure control was utilized for the study. A dose lowering technique was utilized adhering to the principles of ALARA. MIP reconstructed images were created and reviewed. CONTRAST: Patient received 120ml of IV contrast COMPARISON: March 22, 2020 The aortic arch is mildly calcified but nondilated. There is no aneurysm or dissection. FINDINGS: VASCULATURE: Right common carotid artery: 20% stenosis of the mid right common carotid artery. No dissection. Right internal carotid artery: Moderate to severe calcified plaque in the right carotid bulb causing a 40% stenosis of the proximal right internal carotid artery. No dissection. Right external carotid artery: Unremarkable. No occlusion. 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 Is a small amount of reconstitution of the mid to distal right vertebral artery. The left vertebral artery is widely patent. No occlusion or significant stenosis. Left common carotid artery: Unremarkable. No occlusion or significant stenosis. No dissection. Left internal carotid artery: Mixed density plaque in the left carotid bulb causing 30% stenosis of the proximal left internal carotid artery. No dissection. Left external carotid artery: Unremarkable. No occlusion. Left vertebral artery: See above. NECK: Bones/joints: Mild to moderate degenerative changes throughout the mid to lower cervical spine. No acute fracture or subluxation is seen. Soft tissues: Unremarkable. Lung apices: Clear. CAROTID STENOSIS REFERENCE USING NASCET CRITERIA: % ICA stenosis = (1 - narrowest ICA diameter/diameter of distal cervical ICA) x 100. Mild - <50% stenosis. Moderate - 50-69% stenosis. Severe - 70-94% stenosis. Near occlusion - 95-99% stenosis. Occluded - 100% stenosis. 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 Is a small amount of reconstitution of the mid to distal right vertebral artery. The left vertebral artery is widely patent. This is unchanged. 40% right and 30% left proximal internal carotid artery stenosis. Electronically signed by: True Shi MD 02/22/23 23:06 PM Brain MRI 02/23/23 01:24 Exam(s): MRI HEAD W/WO Contrast IV Amt: 8cc gadavist EXAM: MR Head Without and With Intravenous Contrast CLINICAL HISTORY: Reason for exam: left sided weakness. TECHNIQUE: Magnetic resonance images of the head/brain without and with intravenous contrast in multiple planes. CONTRAST: Patient received 8cc Gadavist of IV contrast COMPARISON: March 22, [address] head from February 22, 2023 FINDINGS: Brain: Mild periventricular white matter T2 hyperintensity consistent with chronic small vessel disease and/or senescent changes. There is an approximately 11 mm old infarct in the left cerebellum. No areas of diffusion restriction are seen to indicate acute stroke. No intracranial hemorrhage is identified. Ventricles: Unremarkable. No ventriculomegaly. Bones/joints: Unremarkable. Soft tissues: Unremarkable. No areas of abnormal contrast enhancement are identified. Sinuses: Unremarkable as visualized. No acute sinusitis. Mastoid air cells: Unremarkable as visualized. No mastoid effusion. Orbits: Unremarkable as visualized. IMPRESSION: Mild periventricular white matter T2 hyperintensity consistent with chronic small vessel disease and/or senescent changes. There is an approximately 11 mm old infarct in the left cerebellum. No areas of diffusion restriction are seen to indicate acute stroke. Electronically signed by: True Shi MD 02/23/23 04:30 AM Hospital Course (1) Stroke-like symptoms: 62yo male presenting with confusion, reported left sided motor weakness and slurred speech which occurred earlier this evening, now resolved. Patient with some degree of amnesia of the events prior to arrival. Of note, patient reported several beer/shot + marijuana use. Alcohol level elevated on admission. Suspect 2nd to acute intoxication, resolution of symptoms without intervention overnight CT head negative MRI of brain without new stroke, old CVA noted A1c 6.3-- PCP f/u Lipid panel acceptable - cholesterol 190, LDL 124, HDL 39. TRG 135. Prior neuro note, on lipitor 80mg. no on med list. refill sent for 10mg given prior issues w/ high dose as well as crestor. instructed to take at night F/u PCP for A1c 6.3 -- diet/weight loss management for now SMOKING CESSATION Continued plavix PT/OT ordered -- ok for home Back to baseline, confirmed with . No deficit on exam Outpatient f/u PCP and Neurology recommended (2) Hypertension: Chronic. Mildly elevated blood pressure -No acute CVA noted on MRI Continue lisinopril, f/u PCP. If remains elevated outpatient/at home can consider increasing anti-HTN regimen Restart atorvastatin (3) Dyslipidemia: Patient has tried several statins in the past - was on high dose Atorvastatin after his stroke which led to joint pain. He was on Crestor as well but this caused muscle pain so he self-DCd this medication as well. He has declined fenofibrate medication as well. Currently not on any medication for cholesterol -Would benefit from some statin therapy - will resume low dose Atorvastatin 10mg po daily and can be increased as tolerated by PCP instructed to take at night Plan stable for dc with outpatient follow up Total Time Total Time Spent Total Time Spent (In Minutes): 45 Discharge Plan Discharge Items Patient Disposition: Home - Self-Care Reason For Visit: LEFT SIDED WEAKNESS Discharge Diagnosis: Altered mental status, intoxication Activity: Resume your previous activity Non-emergency contact: Primary Care Provider and Neurologist Call non-emergency contact if: you have any medication questions Follow-up/Referrals: Karina Dee CRNP [Primary Care Provider] - 03/03/23 10:30 am Gregorio Camejo MD [Physician] - (1 month) Diet: Carb Consistent or DM2 and Heart Healthy Addtl Attending Provider Instructions: You were hospitalized for concerns for a stroke. Imaging was negative for any new stroke thankfully, and this was likely due to combination of alcohol and marijuana given positive testing and reports of smoking. You were evaluated by therapy and OK for return home. Your A1c level was elevated, indicating borderline diabetes and you should follow up with primary care for continued monitoring but may benefit from starting metformin. You should resume Lipitor (atorvastatin) for cholesterol levels and should take this at night to prevent cramping/muscle aches. This can be increased by primary care. Recommend stopping mixing alcohol/smoking. Please follow up with neurology in the next month for continued monitoring or for any other concerns. Please follow up with primary care in the next 7-10 days to monitor your progress. You do have some narrowing in your carotid arteries, but not to level needing intervention. You should continue to have these monitored. It has been a pleasure being a part of the medical team providing for you while you have been in the hospital. Take care! Pending Studies at Discharge: No Stand-Alone Forms: My [facility], Smoking Cessation Medications and DC Order Prescriptions: New atorvastatin 10 mg Tablet 10 mg PO HS Qty: 30 0RF Continued lisinopril 20 mg tablet 20 mg PO QAM 30 Days Qty: 90 3RF clopidogrel 75 mg tablet 75 mg PO QAM 30 Days Qty: 90 3RF oxycodone 5 mg tablet 5 mg PO Q6H PRN (Reason: pain) Qty: 12 0RF Rx Instructions: Initial Treatment Discharge Orders: Discharge Order (Routine); Ordered 02/23/23 Ordered By: Tina Thomas Admission Data Admit Date/Time: 02/23/23 00:20 Attending Provider: Tyler Michel Admit Provider: Zunilda Shi Primary Care Provider: Karina Dee. Other Providers: Zunilda Shi Supervising Physician Co-Signing Physician Notes The patient was seen by me. The chart was reviewed. Case discussed with STEVEN Valdez. Agree with assessment and plan. He will be discharged home today, February 23 Coding Level of Care Code INP/OBS EV SAME DAY LV 3,85MIN Diagnoses Stroke-like symptoms R29.90 Hypertension I10 Dyslipidemia E78.5
== END 2023-02-23 15:21 | disposition home or self-care (01) ==
LOC: ED 21:18 → 2W 21:18 → SUATTDRO 02-23 00:20 → 2W 02-23 01:08